=== PATIENT | male | born 1945 | race Caucasian/White ===

== ENCOUNTER 2020-08-25 09:32 | Outpatient (CLI) | payer OTHER, SELFPAY ==
--- NOTE | 2020-08-25 09:42 | CT_ITS ---
WS: [id number] CT LUMBAR SPINE TECHNIQUE: Noncontrast CT of the lumbar spine with coronal and sagittal reformatted images. CLINICAL INFORMATION: LOW BACK PAIN COMPARISON: None. DLP: 1952.[address] scans at [facility] use at least one of these dose optimization techniques: automat ed exposure control; mA and/or kV adjustment per patient size (includes targeted exams where dose is matched to clinical indication); or iterative reconstruction. FINDINGS: Minimal lumbar curve convex right. Hypertrophic changes lumbar spine. T12-L1: Small right foraminal protrusion with mild right foraminal narrowing. Left foramen is patent. Spinal canal is patent. Moderate facet arthropathy. L1-L2: No significant disc bulging. Spinal canal and foramen are patent. Mild facet arthropathy. L2-L3: Mild annular bulging. Mild facet arthropathy. Mild central canal stenosis. Foramen are patent. L3-L4: Mild annular bulging. Moderate facet arthropathy. Spinal canal and foramen are patent. Mild ce ntral canal stenosis. L4-L5: Mild disc bulging in combination with moderate to advanced facet arthropathy results in modera te to severe central canal stenosis. Mild right greater than left foraminal narrowing. Ligamentum fla vum hypertrophy. L5-S1: Small left pericentral protrusion impinges the traversing left S1 nerve root in the subarticul ar recess. Mild central canal stenosis. Mild right foraminal narrowing. Moderate facet arthropathy. Visualized pelvic bony structures: Normal. Paravertebral soft tissues: Normal. CT/CT lumbar spine wo con* [id number] IMPRESSION: 1. Moderate to severe central canal stenosis L4-5. Mild central canal stenosis L2-L3 and L3-L4. 2. Shallow left pericentral protrusion L5-S1 impinges the left S1 nerve root w ith mild central canal stenosis. 3. Small right foraminal protrusion T12-L1 with mild right foraminal narrowing . 4. Mild right L4-5 foraminal narrowing. 5. Moderate to advanced facet arthropathy L4-L5 and L5-S1. 6. Findings could be further evaluated with MRI for better anatomic detail.
--- NOTE | 2020-08-25 09:42 | XR_ITS ---
WS: [id number] LUMBAR SPINE FLEXION AND EXTENSION TECHNIQUE: 3 views of the lumbar spine: Lateral neutral, flexion, and extension views. CLINICAL INFORMATION: LOW BACK PAIN COMPARISON: None. FINDINGS: Normal lumbar alignment on the neutral view. No instability on the flexion and extension views. Moderate spondylitic changes. Hypertrophic changes lower thoracic and lumbar spine. Cholecystectomy c lips. No acute appearing compression fractures. Disc space narrowing worse L4-L5 and L5-S1. Moderate facet arthropathy L5-S1. XR/XR lumbar spine f/e only [id number] IMPRESSION: No instability on flexion-extension
== END 2020-08-25 09:33 | disposition home or self-care (01) ==
LOC: RADWPI 09:37
PROVIDERS: Family Provider Internal Medicine; Visit Provider Nurse Practitioner
DX: M48.061 Spinal stenosis, lumbar region without neurogenic claudication (principal); M51.27 Other intervertebral disc displacement, lumbosacral region; M51.25 Other intervertebral disc displacement, thoracolumbar region; M47.816 Spondylosis without myelopathy or radiculopathy, lumbar region; M47.817 Spondylosis without myelopathy or radiculopathy, lumbosacral region
CPT/HCPCS: 72120; 72131

== ENCOUNTER 2020-09-22 08:11 | Outpatient (CLI) | payer OTHER, SELFPAY ==
--- NOTE | 2020-09-22 08:18 | US_ITS ---
WS: [id number] RENAL ULTRASOUND HISTORY: DECREASED RENAL Function; chronic KIDNEY DISEASE STAGE 4 COMPARISON: None available. TECHNIQUE: 2-D and color Doppler imaging of the kidney submitted. Right kidney: Prior nephrectomy. Left kidney: 11.8 cm x 5.9 cm x 6.4 cm. Normal echogenicity with no hydronephrosis or mass. Aorta: Normal. Urinary Bladder: Minimally distended bladder. Prostate gland is enlarged measuring 4.3 x 4.3 cm. US/US renal BI* [id number] IMPRESSION: 1. Status post RIGHT nephrectomy. 2. Negative LEFT kidney. 3. Prostate gland enlargement.
== END 2020-09-22 08:12 | disposition home or self-care (01) ==
LOC: RAD 08:13
PROVIDERS: Visit Provider Internal Medicine Nephrology
DX: N18.4 Chronic kidney disease, stage 4 (severe) (principal); Z90.5 Acquired absence of kidney; N40.0 Benign prostatic hyperplasia without lower urinary tract symptoms
CPT/HCPCS: 76770

== ENCOUNTER 2020-09-28 20:00 | Outpatient (CLI) | payer OTHER, SELFPAY | END 2020-09-28 20:01 | disposition home or self-care (01) | LOC: SLEEP 10-16 10:07 | PROVIDERS: Visit Provider Family Medicine | DX: G47.10 Hypersomnia, unspecified (principal) | CPT/HCPCS: 95810 ==

== ENCOUNTER 2021-01-18 12:00 | Outpatient (CLI) | payer OTHER, SELFPAY | END 2021-01-18 12:01 | disposition home or self-care (01) | LOC: SLEEP 01-19 14:34 | PROVIDERS: Visit Provider Anesthesiology Pain Medicine | DX: G47.10 Hypersomnia, unspecified (principal) | CPT/HCPCS: G0399 ==

== ENCOUNTER 2021-11-20 04:56 | Observation (INO) | payer OTHER, MEDICARE, SELFPAY ==
[2021-11-20] VITALS (13 sets, daily range): BP systolic 68–140; BP diastolic 35–75; PULSE 60–93; RESP 16–22; TEMP 36.6; O2SAT 93–97; BMI 31.7
[2021-11-20] MEDS: sodium chloride 0.9% 1,000 ML 999 ML IV (05:54)
--- NOTE | 2021-11-20 05:56 | XRR_ITS ---
PROCEDURE INFORMATION: Exam: XR Chest Exam date and time: 11/20/2021 5:56 AM Age: 76 years old Clinical indication: Other: Weakness TECHNIQUE: Imaging protocol: XR of the chest. Views: 1 view. COMPARISON: CR Chest 1 [place] [id number] 04/27/2015 4:59 PM FINDINGS: Tubes, catheters and devices: Intrathoracic electrodes. Lungs: Limited inspiratory volume. Pleural spaces: Unremarkable. No pleural effusion. No pneumothorax. Limited inspiratory volume with retrocardiac interstitial process unlikely. Heart/Mediastinum: Accentuation of cardiac size. Vasculature: Likely confluent crowding vasculature in the retrocardiac left lower lung similar to previous. Bones/joints: Degenerative change of the spine. XR/XR chest 1V portable [id number] IMPRESSION: 1. Accentuation of heart size. 2. No focal consolidation or overt edema. Likely summation of vasculature in the retrocardiac left lower lung. For any respiratory symptoms consider a more optimal inspiratory follow-up chest.
--- NOTE | 2021-11-20 05:56 | ECG_ITS ---
[facility] Test Date: 2021-11-20 Pat Name: Brian Hinkle Department: Room: Gender: Male Taker Down: : 1945 Requested By: Seymour Amos Order Number: [id number] Rebecca MD: Enrique Garland M.D. Measurements Intervals [place] Rate: 73 P: 68 [place]: 235 QRS: -46 QRSD: 119 T: 64 QT: 354 QTc: 391 Interpretive Statements SINUS RHYTHM WITH FIRST DEGREE AV BLOCK LEFT ANTERIOR FASCICULAR BLOCK [QRS AXIS <= -45, QR IN I, RS IN II] POSSIBLE ANTERIOR MYOCARDIAL INFARCTION , OF INDETERMINATE AGE [30 ms Q WAVE IN V3/V4, OR R < 0.2 mV IN V4] INTERPRETATION BASED ON A DEFAULT AGE OF 40 YEARS Compared to ECG 04/27/2015 14:08:45 Myocardial infarct finding now present Incomplete right bundle-branch block no longer present Electronically Signed On 11-20-2021 14:16:04 MAINSPRING WINDER AND OILER by Enrique Garland M.D. [id number] f
--- NOTE | 2021-11-20 05:57 | ED_ITS ---
HPI - Weakness General: Chief complaint: ER Hold Stated complaint: Low Blood Pressure Time Seen by Provider: 11/20/21 05:56 History of Present Illness: HPI Narrative: Mr. Hinkle is a 76-year-old gentleman with significant past medical history of hypertension, hyperlipidemia, CAD status post PCI with stent x3, and solitary kidney secondary to nephrectomy who presents to the emergency department due to low blood pressure. He reports being in his baseline health past few days without significant known provoking factors. Overnight he noticed dizziness especially with position changes. Moderate to severe intensity. Denies any other associated focal neurologic symptoms. Has had similar episodes in the past. Perhaps mild increased shortness of breath with exertion over the past few days though no cough or other infectious symptoms. No other specific known exacerbating relieving factors identified. Patient reports no recent med changes, on 5 antihypertensives but does not know which ones or have a med list with him. Mostly taken qAM however some BID and taken last night. Typically receives care at [facility] here in [place]. PCI reportedly performed in [place] at the ID there. MD Complaint: generalized weakness Onset (ago): hour(s) Duration: constant Location: generalized Migration: none Severity: moderate Relieving factors: none Exacerbating factors: movement Review of Systems General: Reports: 10 or more systems reviewed and unremarkable except in HPI and below PFSH ED PFSH: Medical History (Updated 11/22/21 @ 00:01 by ) BPH (benign prostatic hyperplasia) CAD (coronary artery disease) Chronic kidney disease Diabetes mellitus HLD (hyperlipidemia) HTN (hypertension) Multiple sclerosis Renal cancer Surgical History History of coronary artery stent placement History of nephrectomy Family History (Updated 11/20/21 @ 13:55 by Juan Jose Dimas MD) Other Cancer Social History (Updated 11/20/21 @ 13:55 by Juan Jose Dimas MD) Smoking and tobacco status: former smoker Alcohol intake: never Physical Exam Const: COMMON NORMALS: alert GENERAL APPEARANCE: cooperative and well developed HENMT: COMMON NORMALS: normocephalic, atraumatic, external ears normal and Normal external nose present HEAD & SCALP: normocephalic and atraumatic NOSE: Normal external nose present EXTERNAL EAR: Yes external ears normal Eye: COMMON NORMALS: conjunctivae normal CONJUNCTIVA: Yes conjunctivae normal SCLERA: sclerae normal Neck/C-Spine: COMMON NORMALS: supple GENERAL: Yes trachea midline Resp: COMMON NORMALS: normal respiratory effort EFFORT & INSPECTION: Yes able to speak in complete sentences Cardio: COMMON NORMALS: regular rate and regular rhythm RATE: regular rate RHYTHM: regular rhythm GI: COMMON NORMALS: Soft to palpation PALPATION: Yes Soft to palpation and No Tenderness to palpation present (GI) PERCUSSION: normal to percussion Extremity: GENERAL: Yes normal exam except as noted and No edema Neuro: COMMON NORMALS: moves all extremities SENSORIUM/ORIENTATION: Yes alert and No Orientation impaired Psych: COMMON NORMALS: mental status grossly normal and Normal thought process present THOUGHT PROCESS: Normal thought process present Course ED course: - Patient was seen and evaluated by me at bedside - Patient placed on cardiac monitors, IV access obtained - Initial evaluation notable for exam as above, hypotensive with worsening on orthostatics -IV fluids given - Labs notable for no leukocytosis or other acute hematologic abnormality. Metabolic panel concerning with hyponatremia and hypochloremia, bicarb significantly decreased with elevated anion gap. Patient likely has some degree of CKD with solitary kidney however unclear baseline with a creatinine of 2. Glucose is mildly elevated however no ketones noted on urinalysis therefore not suggestive of DKA nor his clinical picture. - Imaging notable for mild cardiomegaly, no focal consolidation or lobar pneumonia identified. - After 1 L NS bolus patient remained orthostatic. Additional 500 cc ordered and still orthostatic though mildly improved. - Clinical history is inconsistent with significant dehydration, given known heart disease and age patient is not a candidate for high-volume ED fluid resuscitation. - Based on patient history, evaluation, labs, and imaging as interpreted the most likely cause of the patient's condition is orthostatic hypotension with metabolic derangement of unclear etiology - The results of ED evaluation were discussed with the patient including plan for admission due to requirement for level of care not available if discharged to prevent significant worsening/deterioration. - Hospitalist service contacted and agreed admit the patient - Patient was admitted without further deterioration or significant events. Note: Click bubbles or prepopulated nicholson in note writing are used for assistance with data collection and billing and are inherently more limited than narrative and other text portions of this note. Please use narrative for additional clinical history and defer to narrative/free test for any case of contradictory information. If information appears in only free text or click bubble it should be considered present or absent as reported. Please contact note journalists and other writers for clarifications of clinical information or contradictory information. MDM is a brief summary, contradictory or erroneous seeming information should be clarified and full note should be reviewed. Vital Signs: Vital signs: Vital Signs Temperature 97.9 F 11/21/21 13:23 Pulse Rate 69 11/21/21 13:23 Respiratory Rate 18 11/21/21 13:23 Blood Pressure 110/64 11/21/21 13:23 Pulse Oximetry 96 11/21/21 13:23 MDM - Weakness MDM Narrative Medical decision making narrative: 76-year-old gentleman with history of hypertension, CKD, CAD presented with blood pressure. Patient found to be hypotensive. Despite 1.5 L of fluid resuscitation he remained orthostatic and symptomatic. Patient is on multiple medications however care is performed at outside hospital which limits available information. Given high degree of medical complexity including refractory symptoms and patient not being a candidate for high-volume fluid resuscitation he requires admission for further evaluation of persistent hypotension. Medical Records Attestation: I reviewed the patient's medical records. Lab Data Attestation: I reviewed the patient's lab results. Result diagrams: 11/21/21 05:09 11/21/21 05:09 Labs: Lab Results 11/20/21 11/20/21 11/20/21 05:30 05:30 05:31 WBC 6.5 10^3/uL 10^3/uL (4.0-10.0) RBC 5.01 10^6/uL 10^6/uL (4.1-5.3) Hgb 14.7 g/dL g/dL (11.7-16.6) Hct 44.2 % % (42.0-52.0) MCV 88.2 fl fl (80-94) MCH 29.3 pg pg (28.0-34.0) MCHC 33.3 g/dL g/dL (30.0-36.0) RDW 13.5 % % (12.1-15.1) Plt Count 202 10^3/cmm 10^3/cmm (130-400) MPV 11.3 fL H fL (7.4-10.4) Neut % (Auto) 60.0 % % Lymph % (Auto) 26.3 % % Mcintosh % (Auto) 11.2 % % Eos % (Auto) 1.5 % % Baso % (Auto) 0.5 % % Neut # (Auto) 3.91 10^3/uL 10^3/uL (1.8-7.7) Lymph # (Auto) 1.7 10^3/uL 10^3/uL (0.8-4.8) Mcintosh # (Auto) 0.7 10^3/uL 10^3/uL (0.2-0.9) Eos # (Auto) 0.1 10^3/uL 10^3/uL (0.0-0.8) Baso # (Auto) 0.0 10^3/uL 10^3/uL (0.0-0.1) Nucleated RBC % (auto) 0 % % Nucleated RBCs # 0.0 /100WBC /100WBC Sodium 131 mmol/L L mmol/L (136-145) Potassium 4.8 mmol/L mmol/L (3.5-5.1) Chloride 95 mmol/L L mmol/L (98-107) Carbon Dioxide 15 mmol/L L mmol/L (22-29) Anion Gap 25.8 H (5-19) BUN 40 mg/dL H mg/dL (8-23) Creatinine 2.0 mg/dL H mg/dL (0.7-1.2) GFR Calculation Not Reportable Glucose 229 mg/dL H mg/dL (65-115) Calculated Osmolality 289 mOsm/kg mOsm/kg (285-295) Calcium 9.4 mg/dL mg/dL (8.5-10.5) Total Bilirubin 0.6 mg/dL mg/dL (0.15-1.2) Direct Bilirubin 0.20 mg/dL mg/dL (0.00-0.30) AST 17 U/L U/L (0-40) ALT < 5 U/L U/L (0-41) Alkaline Phosphatase 78 IU/L IU/L (40-130) Troponin T Baseline 42 ng/L H ng/L (0-15) Troponin T 120 Minute Delta Troponin T NT-Pro-B Natriuret Pep 111 pg/mL pg/mL (0-125) Total Protein 6.9 g/dL g/dL (6.6-8.7) Albumin 4.0 g/dL g/dL (3.5-5.2) Globulin 2.9 g/dL g/dL (1.3-4.6) TSH 1.82 uIU/mL uIU/mL (0.27-4.20) 11/20/21 07:48 WBC RBC Hgb Hct MCV MCH MCHC RDW Plt Count MPV Neut % (Auto) Lymph % (Auto) Mcintosh % (Auto) Eos % (Auto) Baso % (Auto) Neut # (Auto) Lymph # (Auto) Mcintosh # (Auto) Eos # (Auto) Baso # (Auto) Nucleated RBC % (auto) Nucleated RBCs # Sodium Potassium Chloride Carbon Dioxide Anion Gap BUN Creatinine GFR Calculation Glucose Calculated Osmolality Calcium Total Bilirubin Direct Bilirubin AST ALT Alkaline Phosphatase Troponin T Baseline Troponin T 120 Minute 32.76 ng/L H ng/L (0-15) Delta Troponin T -9.24 ABS# L ABS# (0-10) NT-Pro-B Natriuret Pep Total Protein Albumin Globulin TSH EKG Data^ EKG 1: Attestation: I personally reviewed and interpreted this EKG as follows: EKG interpretation date: 11/20/21 Interpretation: Twelve-lead EKG shows a regular rhythm with a rate of 73. DE interval 235, QRS duration 119, QTc 379. Left axis deviation. Interpretation: Sinus rhythm. First-degree AV block. Interventricular conduction delay. EKG 2: Attestation: I personally reviewed and interpreted this EKG as follows: EKG interpretation date: 11/20/21 EKG interpretation time: 17:23 Interpretation: Twelve-lead EKG shows a regular rhythm at a rate of 69. DE interval 264, QRS duration 117, QTc 380. Left axis deviation. Interpretation: Sinus rhythm. First-degree AV block. Interventricular conduction delay. Discharge Plan Discharge Patient Disposition: Placed in Observation Admit Provider: Juan Jose Dimas Clinical Impression: Acute hypotension Discharge Diet: Cardiac Discharge Activity: Increase activity as tolerated Coding Level of Care Code ED Dealership General Manager for Chg Fwd Exam Comprehensive
[2021-11-20 06:47] LABS: Basophils % 0.5 %; Eosinophils # 0.1 10^3/uL (0.0-0.8); Eosinophils % 1.5 %; Hematocrit 44.2 % (42.0-52.0); Hemoglobin 14.7 g/dL (11.7-16.6); Lymphocytes # 1.7 10^3/uL (0.8-4.8); Lymphocytes % 26.3 %; Mean Corpuscular HGB Conc 33.3 g/dL (30.0-36.0); Mean Corpuscular Hemoglobin 29.3 pg (28.0-34.0); Mean Corpuscular Volume 88.2 fl (80-94); Mean Platelet Volume 11.3 fL (7.4-10.4); Monocytes # 0.7 10^3/uL (0.2-0.9); Monocytes % 11.2 %; Neutrophils # 3.91 10^3/uL (1.8-7.7); Nucleated Red Blood Cells % 0 %; Platelet Count 202 10^3/cmm (130-400); Red Blood Count 5.01 10^6/uL (4.1-5.3); Red Cell Distribution Width 13.5 % (12.1-15.1); White Blood Count 6.5 10^3/uL (4.0-10.0)
--- NOTE | 2021-11-20 06:56 | PC.NURSE ---
Pt. states that he feels much better after some fluid. Pt. repositioned in bed . Mechanical Integrity Engineer has sent for patient's medical records. Pt.'s is at bedside. states that she has been trying to get patient to come to the hospital all day and he would not come until he was so weak he could not stand.
[2021-11-20 07:10] LABS: Troponin(5th) Baseline 42 ng/L (0-15)
[2021-11-20 07:17] LABS: Alanine Aminotransferase < 5 U/L (0-41); Alkaline Phosphatase 78 IU/L (40-130); Anion Gap 25.8 (5-19); Aspartate Amino Transferase 17 U/L (0-40); Blood Urea Nitrogen 40 mg/dL (8-23); Calcium 9.4 mg/dL (8.5-10.5); Carbon Dioxide 15 mmol/L (22-29); Chloride 95 mmol/L (98-107); Globulin 2.9 g/dL (1.3-4.6); Glucose 229 mg/dL (65-115); NT Pro B Type Natriuretic Pept 111 pg/mL (0-125); Osmolality Calculated 289 mOsm/kg (285-295); Potassium 4.8 mmol/L (3.5-5.1); Sodium 131 mmol/L (136-145); Thyroid Stimulating Hormone 1.82 uIU/mL (0.27-4.20); Total Bilirubin 0.6 mg/dL (0.15-1.2); Total Protein 6.9 g/dL (6.6-8.7)
--- NOTE | 2021-11-20 07:38 | PC.NURSE ---
WHILE AT DOORWAY PT IS RESTING QIUETLY IN BED SUPINE WITH EYES CLOSED IN NAD. PT HAS GOOD CHEST RISE AND FALL. PT IS ON CONTINUOUS SPO2 AND NIBP MONITORING.
--- NOTE | 2021-11-20 07:56 | ECG_ITS ---
[facility] Test Date: 2021-11-20 Pat Name: Brian Hinkle Department: Room: 255 Gender: Male Cotton Washer: : 1945 Requested By: Seymour Amos Order Number: [id number] Rebecca MD: Enrique Garland M.D. Measurements Intervals [place] Rate: 69 P: 75 DE: 264 QRS: -55 QRSD: 117 T: 70 QT: 362 QTc: 388 Interpretive Statements SINUS RHYTHM WITH FIRST DEGREE AV BLOCK LOW QRS VOLTAGE IN PRECORDIAL LEADS [QRS DEFLECTION < 1.0 mV IN CHEST LEADS] INCOMPLETE RIGHT BUNDLE BRANCH BLOCK [90+ ms QRS DURATION, TERMINAL R IN V1/V2, 40+ ms S IN I/aVL/V4/V5/V6] LEFT ANTERIOR FASCICULAR BLOCK [QRS AXIS <= -45, QR IN I, RS IN II] MINIMAL VOLTAGE CRITERIA FOR LVH, CONSIDER NORMAL VARIANT [MEETS CRITERIA IN ONE OF: R(aVL), S(V1), R(V5), R(V5/V6)+S(V1)] Compared to ECG 11/20/2021 17:22:14 First degree AV block now presentLow QRS voltage now present Incomplete right bundle-branch block now presentLeft anterior fascicular block now present. Atrial-paced complex(es) or rhythm no longer present Left-axis deviation no longer present.Myocardial infarct finding no longer present Electronically Signed On 11-21-2021 20:11:44 BRIM ROUNDER by Enrique Garland M.D. [id number]
[2021-11-20 08:14] LABS: Troponin 5 2HR 32.76 ng/L (0-15)
[2021-11-20 08:15] LABS: Troponin 5 2HR Delta -9.24 ABS# (0-10)
[2021-11-20] MEDS: sodium chloride 0.9% 500 ML 999 ML IV (08:44)
--- NOTE | 2021-11-20 11:56 | ECG_ITS ---
[facility] Test Date: 2021-11-20 Pat Name: Brian Hinkle Department: Room: EDIP Gender: Male Larr[place]: : 1945 Requested By: Seymour Amos Order Number: [id number] Rebecca MD: Enrique Garland M.D. Measurements Intervals [place] Rate: 68 P: 226 MD: 322 QRS: -37 QRSD: 126 T: 75 QT: 377 QTc: 403 Interpretive Statements Regular supraventricular rhythm, possibly sinus Heavy electrical artifact LEFT AXIS DEVIATION [QRS AXIS < -30] POSSIBLE RIGHT VENTRICULAR CONDUCTION DELAY [RSR (QR) IN V1/V2] POSSIBLE ANTERIOR MYOCARDIAL INFARCTION , OF INDETERMINATE AGE [30 ms Q WAVE IN V3/V4, OR R < 0.2 mV IN V4] Compared to ECG 11/20/2021 05:29:20 There may not be a significant change further interpretation is not possible. Consider repeating the study Electronically Signed On 11-21-2021 20:11:17 FOREST FIREFIGHTER by Enrique Garland M.D. [id number]
[2021-11-20 12:25] LABS: Troponin 5 6HR 27.21 ng/L (0-15)
[2021-11-20 13:02] LABS: Add Urine Microscopic? NO; Charge for UA Resulting for Rev
[2021-11-20 13:07] LABS: Bilirubin Urine Neg (Negative); Blood Urine Neg (Negative); Glucose Urine UA 4+ (Normal); Ketones Urine Negative (Negative); Leukocyte Esterase Urine Negative (Negative); Nitrate Urine Negative (Negative); Protein Urine Neg (Negative); Specific Gravity, Urine 1.015 (1.005-1.030); Urine Appearance Clear (CLEAR); Urine Color Straw (Yellow); Urobilinogen Urine Norm (Negative); pH Urine 5 (5-7)
--- NOTE | 2021-11-20 13:34 | PC.NURSE ---
report given to moy chavez assumed care.
--- NOTE | 2021-11-20 13:52 | PM.HP ---
Providers/Chief Complaint Admitting Physician: Juan Jose Dimas MD Chief Complaint: Low Blood Pressure History of Present Illness Brian Hinkle is a 76 year old male who presented to the emergency department with 1 day history of dizziness upon standing, severe weakness. No chest discomfort, shortness of breath, fever. No recent change in medication. was recently ill with stomach flu but he has not had the symptoms. He reports he is vaccinated for COVID including booster. This is not happened to him before. He denies any focal weakness and reports of fluids he does not feel dizzy with sitting currently. He reports he did not take his blood pressure medicine this morning secondary to dizziness. Review of Systems General: Reports: 10 or more systems reviewed and unremarkable except in HPI and below Const: Reports: malaise; Denies: fever(s) or chills Eyes: Denies: change in vision ENMT: Denies: throat pain Card: Denies: chest pain Resp: Denies: dyspnea GI: Denies: abdominal pain, nausea, vomiting, hematochezia or melena : Denies: flank pain Musc: Denies: neck pain Skin/Breast: Denies: rash Neuro: Reports: dizziness; Denies: headache(s) Psych: Denies: anxiety Endo: Denies: polyuria Luigi/Lymph: Denies: easy bruising All/Imm: Denies: urticaria Medications/Allergies Home Medications Medication Instructions Recorded Confirmed Last Taken Type amlodipine 5 mg PO DAILY 11/20/21 11/20/21 11/19/21 History cyclobenzaprine 10 mg PO TID PRN 11/20/21 11/20/21 11/20/21 History empagliflozin [Jardiance] 25 mg PO DAILY 11/20/21 11/20/21 11/20/21 History glipizide 10 mg PO BID 11/20/21 11/20/21 11/20/21 History hydrochlorothiazide 12.5 mg PO DAILY 11/20/21 11/20/21 11/20/21 History hydrocodone-acetaminophen 1 tab PO TID PRN 11/20/21 11/20/21 11/19/21 History insulin glargine [Lantus U-100 See Rx Instructions .ROUTE .COMPLEX 11/20/21 11/20/21 11/20/21 History Insulin] lisinopril 40 mg PO DAILY 11/20/21 11/20/21 11/19/21 History metformin 250 mg PO BID 11/20/21 11/20/21 11/20/21 History metoprolol tartrate 12.5 mg PO BID 11/20/21 11/20/21 11/19/21 History nortriptyline 75 mg PO BEDTIME 11/20/21 11/20/21 11/19/21 History omega-3 fatty acids [Fish Oil] 500 mg PO BID 11/20/21 11/20/21 11/20/21 History pravastatin 80 mg PO BEDTIME 11/20/21 11/20/21 11/19/21 History tamsulosin 0.4 mg PO DAILY 11/20/21 11/20/21 11/19/21 History Allergies Allergy/AdvReac Type Severity Reaction Status Date / Time Iodine and Iodide Containing Allergy Unresponsiv Verified 11/20/21 13:50 Produc e PFSH Acute PFSH: Medical History (Updated 11/20/21 @ 14:05 by Juan Jose Dimas MD) BPH (benign prostatic hyperplasia) CAD (coronary artery disease) Chronic kidney disease Diabetes mellitus HLD (hyperlipidemia) HTN (hypertension) Multiple sclerosis Renal cancer Surgical History History of coronary artery stent placement History of nephrectomy Family History (Updated 11/20/21 @ 13:55 by Juan Jose Dimas MD) Other Cancer Social History (Updated 11/20/21 @ 13:55 by Juan Jose Dimas MD) Smoking and tobacco status: former smoker Alcohol intake: never Vitals/I&O/Wt Last Vital Signs Temp 97.9 F 11/20/21 05:11 Pulse 60 11/20/21 12:31 Resp 16 11/20/21 12:31 BP 140/61 11/20/21 12:31 Pulse Ox 97 11/20/21 12:31 Weight last 48 hrs Weight 97.522 kg Physical Exam Narrative: EXAM NARRATIVE: General exam is white male, sitting upright, reporting he feels better. HEENT: Pupils equally round. Oropharynx clear. Neck is supple no lymphadenopathy or thyromegaly Cardiovascular regular rate and rhythm without murmur, no S3 or S4 Lungs clear no wheezing or crackles. Abdomen is soft nontender positive bowel sounds. No obvious organomegaly exams deferred Extremities no cyanosis clubbing or edema, cap refill brisk Skin no rash Neuro no focal deficits. Data : 11/20/21 05:31 11/20/21 05:30 Other data: Troponin 42 with repeat of 32 and 6 out of 27 LFTs normal TSH normal Urinalysis negative Chest x-ray no obvious infiltrate EKG sinus rhythm, left axis deviation, left anterior fascicular block Urinalysis negative A&P Assessment and plan (1) Acute hypotension: Appears to have orthostatic hypotension. May have fluid deficit, with concern of acute kidney injury. He has been given some fluids in the emergency department. We will continue saline at 75 cc an hour. Check cortisol, magnesium orthostatic blood pressures twice daily Hold cyclobenzaprine, hydrochlorothiazide, lisinopril, metformin, metoprolol, tamsulosin, nortriptyline. All of these could potentially worsen acute kidney injury, or cause lower blood pressure Patient with history of multiple sclerosis, which could lead to orthostatic hypotension Telemetry Status: Acute (2) Dizziness: Secondary to above Status: Acute (3) Chronic kidney disease: Acute on chronic kidney injury. Recheck tomorrow with BMP Status: Acute (4) CAD (coronary artery disease): Continue his chronic medications Aspirin daily Status: Acute (5) HTN (hypertension): Hold all antihypertensives Status: Acute Additional A&P Information Diabetes mellitus. Sliding scale insulin. History of multiple sclerosis Multiple other medical problems as outlined in past medical history. Full code Heparin for DVT prophylaxis Attestations Medical Necessity Statement*: Will need less than 2 midnight stay for evaluation and treatment of hypotension. Coding Level of Care Code Acute Audio Visual Aids Director for Grace Frankel Diagnoses Acute hypotension I95.9 Dizziness R42 Chronic kidney disease N18.9 CAD (coronary artery disease) I25.10 HTN (hypertension) I10
[2021-11-20 14:24] LABS: Magnesium 2.2 mg/dL (1.7-2.3)
[2021-11-20] MEDS: heparin 5,000 unit/mL INJ 1 mL 5000 UNIT SUBCUT (14:41)
[2021-11-20] MEDS: sodium chloride 0.9% 1,000 ML 75 ML IV (15:00)
[2021-11-20 15:08] LABS: Cortisol Random 8.86 ug/dL (2.47-19.5)
[2021-11-20 16:43] LABS: Anion Gap 18.3 (5-19); Blood Urea Nitrogen 37 mg/dL (8-23); Carbon Dioxide 20 mmol/L (22-29); Chloride 99 mmol/L (98-107); Glucose 185 mg/dL (65-115); Osmolality Calculated 289 mOsm/kg (285-295); Potassium 4.3 mmol/L (3.5-5.1); Sodium 133 mmol/L (136-145)
[2021-11-20 21:37] LABS: Glucose Point of Care 161 mg/dL (70-110)
[2021-11-20] MEDS: insulin lispro 100 unit/1 mL SUBCUT (21:53)
[2021-11-21] VITALS: BP 137/72; PULSE 77; RESP 20; TEMP 36.7; O2SAT 95
[2021-11-21] MEDS: heparin 5,000 unit/mL INJ 1 mL 5000 UNIT SUBCUT (02:12)
[2021-11-21] MEDS: sodium chloride 0.9% 1,000 ML 75 ML IV (03:10)
[2021-11-21 04:00] VITALS: BP 116/71; PULSE 82; RESP 19; TEMP 36.7; O2SAT 93
[2021-11-21 05:31] LABS: Basophils % 0.5 %; Eosinophils # 0.2 10^3/uL (0.0-0.8); Eosinophils % 3.8 %; Hematocrit 42.8 % (42.0-52.0); Hemoglobin 14.1 g/dL (11.7-16.6); Lymphocytes # 1.8 10^3/uL (0.8-4.8); Lymphocytes % 28.4 %; Mean Corpuscular HGB Conc 32.9 g/dL (30.0-36.0); Mean Corpuscular Hemoglobin 29.7 pg (28.0-34.0); Mean Corpuscular Volume 90.3 fl (80-94); Mean Platelet Volume 10.3 fL (7.4-10.4); Monocytes # 0.7 10^3/uL (0.2-0.9); Monocytes % 11.3 %; Neutrophils # 3.48 10^3/uL (1.8-7.7); Neutrophils % 55.7 %; Nucleated Red Blood Cells % 0 %; Platelet Count 178 10^3/cmm (130-400); Red Blood Count 4.74 10^6/uL (4.1-5.3); Red Cell Distribution Width 13.6 % (12.1-15.1); White Blood Count 6.3 10^3/uL (4.0-10.0)
[2021-11-21 05:51] LABS: Anion Gap 18.6 (5-19); Blood Urea Nitrogen 33 mg/dL (8-23); Calcium 8.4 mg/dL (8.5-10.5); Carbon Dioxide 20 mmol/L (22-29); Chloride 102 mmol/L (98-107); Glucose 180 mg/dL (65-115); Osmolality Calculated 294 mOsm/kg (285-295); Potassium 4.6 mmol/L (3.5-5.1); Sodium 136 mmol/L (136-145)
[2021-11-21 06:00] VITALS: PULSE 76
[2021-11-21 06:27] LABS: Glucose Point of Care 154 mg/dL (70-110)
[2021-11-21 08:00] VITALS: BP 109/62; BP 110/64; BP 123/68; PULSE 69; PULSE 74; PULSE 79; RESP 18; TEMP 36.6; O2SAT 96
[2021-11-21] MEDS: insulin lispro 100 unit/1 mL SUBCUT ×2 (08:57→12:11)
--- NOTE | 2021-11-21 10:07 | PM.DCS ---
Discharge Providers Date of Admission: 11/20/21 10:27 Date of Discharge: November 21, 2021 Attending Provider at Admission: Juan Jose Dimas MD Attending Provider at Discharge: Juan Jose Dimas MD Diagnoses at Discharge Discharge Diagnosis (1) Acute hypotension: Status: Acute (2) Dizziness: Status: Acute (3) Chronic kidney disease: Status: Acute (4) CAD (coronary artery disease): Status: Acute (5) HTN (hypertension): Status: Acute Reason for Visit Reason for Visit: Low Blood Pressure Hospital Course Hospital Course Brian is a 76-year-old male who presented to the emergency department with complaints of dizziness, tiredness. In the emergency department he was found to be significantly orthostatic. He did not remember any new medicines. He had not been ill with any fever or cough. He has been taking all his medicines as prescribed but held his morning medicines secondary to dizziness. In the emergency department he did receive some fluids but was still orthostatic so he was placed on observation. Cortisol, TSH were checked and normal. Many of his sedating medications as well as those that would lower blood pressure were held including cyclobenzaprine, hydrochlorothiazide, lisinopril, metformin, metoprolol, tamsulosin, nortriptyline. The following day after hydration he was no longer orthostatic and had no symptoms. He will discharge home today, with 3 restarted his low-dose metoprolol, nightly tamsulosin. His cyclobenzaprine, hydrochlorothiazide, lisinopril, metformin, nortriptyline will be discontinued for now. Note that his blood pressure was 125/70 on discharge. [facility] be [facility].. Physical Exam Narrative: EXAM NARRATIVE: General exam no distress Neck is supple Cardiovascular regular rate and rhythm Lungs clear Abdomen soft Extremities no cyanosis clubbing or edema Discharge Data Data Completed and Pending: Completed Studies During Hospitalization Category Date Time Status XR chest 1V grace ble [id number] Urgent Exams 11/20/21 05:56 Completed Labs from last 24 hours 11/21/21 11/21/21 11/21/21 06:17 05:09 05:09 WBC 6.3 RBC 4.74 Hgb 14.1 Hct 42.8 MCV 90.3 MCH 29.7 MCHC 32.9 RDW 13.6 Plt Count 178 MPV 10.3 Neut % (Auto) 55.7 Lymph % (Auto) 28.4 [place] % (Auto) 11.3 Eos % (Auto) 3.8 Baso % (Auto) 0.5 Neut # (Auto) 3.48 Lymph # (Auto) 1.8 [place] # (Auto) 0.7 Eos # (Auto) 0.2 Baso # (Auto) 0.0 Nucleated RBC % (a uto) 0 Nucleated RBCs # 0.0 Sodium 136 Potassium 4.6 Chloride 102 Carbon Dioxide 20 L Anion Gap 18.6 BUN 33 H Creatinine 1.6 H GFR Calculation Not Reportable Glucose 180 H POC Glucose 154 H Calculated Osmolal ity 294 Calcium 8.4 L Magnesium Troponin T Hi Sens 6Hr Troponin T Hi Sens 6Hr Delta Random Cortisol Urine Color Urine Appearance Urine pH Ur Specific Gravit y Urine Protein Urine Glucose (UA) Urine Ketones Urine Blood Urine Nitrate Urine Bilirubin Urine Urobilinogen Ur Leukocyte Avani ase 11/20/21 11/20/21 11/20/21 21:34 16:18 12:55 WBC RBC Hgb Hct MCV MCH MCHC RDW Plt Count MPV Neut % (Auto) Lymph % (Auto) [place] % (Auto) Eos % (Auto) Baso % (Auto) Neut # (Auto) Lymph # (Auto) [place] # (Auto) Eos # (Auto) Baso # (Auto) Nucleated RBC % (a uto) Nucleated RBCs # Sodium 133 L Potassium 4.3 Chloride 99 Carbon Dioxide 20 L Anion Gap 18.3 BUN 37 H Creatinine 1.6 H GFR Calculation Not Reportable Glucose 185 H POC Glucose 161 H Calculated Osmolal ity 289 Calcium 9.0 Magnesium Troponin T Hi Sens 6Hr Troponin T Hi Sens 6Hr Delta Random Cortisol Urine Color Straw Urine Appearance Clear Urine pH 5 Ur Specific Gravit y 1.015 Urine Protein Neg Urine Glucose (UA) 4+ H Urine Ketones Negative Urine Blood Neg Urine Nitrate Negative Urine Bilirubin Neg Urine Urobilinogen Norm Ur Leukocyte Avani ase Negative 11/20/21 11/20/21 11/20/21 12:01 12:01 12:01 WBC RBC Hgb Hct MCV MCH MCHC RDW Plt Count MPV Neut % (Auto) Lymph % (Auto) [place] % (Auto) Eos % (Auto) Baso % (Auto) Neut # (Auto) Lymph # (Auto) [place] # (Auto) Eos # (Auto) Baso # (Auto) Nucleated RBC % (a uto) Nucleated RBCs # Sodium Potassium Chloride Carbon Dioxide Anion Gap BUN Creatinine GFR Calculation Glucose POC Glucose Calculated Osmolal ity Calcium Magnesium 2.2 Troponin T Hi Sens 6Hr 27.21 H Troponin T Hi Sens 6Hr Delta -14.79 L Random Cortisol 8.86 Urine Color Urine Appearance Urine pH Ur Specific Gravit y Urine Protein Urine Glucose (UA) Urine Ketones Urine Blood Urine Nitrate Urine Bilirubin Urine Urobilinogen Ur Leukocyte Avani ase Vitals: Last Vital Signs Temp 97.9 F 11/21/21 08:00 Pulse 69 11/21/21 08:00 Resp 18 11/21/21 08:00 BP 110/64 11/21/21 08:00 Pulse Ox 96 11/21/21 08:00 Discharge Plan Discharge Patient Disposition: Home Condition: Stable Prescriptions: Continued Lantus U-100 Insulin 100 unit/mL Solution See Rx Instructions .ROUTE .COMPLEX RF: 0 hydrocodone-acetaminophen 5-325 mg Tablet 1 tab PO TID PRN (Reason: Pain) RF: 0 glipizide 10 mg Tablet 10 mg PO BID RF: 0 pravastatin 80 mg Tablet 80 mg PO BEDTIME RF: 0 tamsulosin 0.4 mg Capsule 0.4 mg PO DAILY RF: 0 metoprolol tartrate 25 mg Tablet 12.5 mg PO BID RF: 0 omega-3 fatty acids 500 mg Capsule 1,000 mg PO BID RF: 0 Jardiance 25 mg Tablet 25 mg PO DAILY RF: 0 Discontinued cyclobenzaprine 10 mg Tablet 10 mg PO TID PRN (Reason: Muscle Spasm) RF: 0 metformin 500 mg Tablet 250 mg PO BID RF: 0 amlodipine 5 mg Tablet 5 mg PO DAILY RF: 0 nortriptyline 75 mg Capsule 75 mg PO BEDTIME RF: 0 hydrochlorothiazide 25 mg Tablet 12.5 mg PO DAILY RF: 0 lisinopril 40 mg Tablet 40 mg PO DAILY RF: 0 Discharge Orders: Discharge Order (Routine); Ordered 11/21/21 Ordered By: Juan Jose Dimas Discharge Diet: Cardiac Discharge Activity: Increase activity as tolerated Patient Instructions: Opioid Safety Activity Restrictions/Additional Instructions: Follow-up with primary care provider at [facility] in 3 to 5 days. Please send a copy of record to them. Review medicine and see what needs to be restarted at that time. Encourage fluids Note multiple medicines have been discontinued that could lower blood pressure related to fall risk. Discharge Attestations Time Spent in Discharge Care*: greater than 30 min Quality Metrics Clinical Quality Measures During this hospital stay, did patient experience: None Coding Level of Care Code Acute Chg FW DC note Diagnoses Acute hypotension I95.9 Dizziness R42 Chronic kidney disease N18.9 CAD (coronary artery disease) I25.10 HTN (hypertension) I10
[2021-11-21 11:10] LABS: Glucose Point of Care 152 mg/dL (70-110)
[2021-11-21 13:23] VITALS: BP 110/64; PULSE 69; RESP 18; TEMP 36.6; O2SAT 96
== END 2021-11-21 12:40 | disposition home or self-care (01) ==
LOC: ER 10:27 → MEDSURG 11-21 09:43
PROVIDERS: Emergency Medicine; Admitting Provider Internal Medicine; Emergency Provider Emergency Medicine; Visit Provider Internal Medicine
DX: I95.9 Hypotension, unspecified (principal); R42 Dizziness and giddiness; I25.10 Atherosclerotic heart disease of native coronary artery without angina pectoris; Z79.4 Long term (current) use of insulin; Z79.84 Long term (current) use of oral hypoglycemic drugs; E11.22 Type 2 diabetes mellitus with diabetic chronic kidney disease; I12.9 Hypertensive chronic kidney disease with stage 1 through stage 4 chronic kidney disease, or unspecified chronic kidney disease; N18.9 Chronic kidney disease, unspecified; Z90.5 Acquired absence of kidney; Z87.891 Personal history of nicotine dependence; Z85.528 Personal history of other malignant neoplasm of kidney
CPT/HCPCS: 36415; 36416; 71045; 80048; 80076; 81003; 82533; 82962; 83735; 83880; 84443; 84484; 85025; 93005; 96360; 96361; 96372; 99285; G0378; J1644; J1815; J7030; J7040

== ENCOUNTER 2022-04-19 08:57 | Emergency (ER) | payer OTHER, MEDICARE, SELFPAY ==
[2022-04-19 09:37] VITALS: BP 115/68; PULSE 65; RESP 16; TEMP 37.1; O2SAT 93; BMI 32.5
--- NOTE | 2022-04-19 12:15 | P.CONIM_ITS ---
Providers/Reason For Consult Consulting Physician/Specialty*: Urology/Zavala Reason for Consult*: Paraphimosis. Could not get reduced in the ED Requesting Physician: Dr. Robertson History of Present Illness History of Present Illness Brian Hinkle is a 76 year old male who I evaluated for the first time today at the request of Dr. Villasenor for refractory irreducible paraphimosis. Began 4 days prior after retraction. Has not been able to get the foreskin back over the head of the penis. Swelling has increased as well as pain. Attempts by ER staff were unsuccessful and I was consulted. Physical exam revealed typical paraphimosis. There is no severe necrosis of the tight constricting band but there is some significant inflammation. Very tender. PROCEDURE: Paraphimosis reduction Patient was treated with pain medication. Sequential light pressure was held on the penis for about 5 minutes to reduce the edema. Even with that it was still difficult to restore the foreskin to its anatomic position but ultimately was successful. Patient tolerated well despite the discomfort. Instructed to forego pulling the foreskin back for cleaning. I will need to see him in the clinic I have recommended he consider circumcision at some point. Review of Systems Const: Denies: fever(s) or chills Eyes: Denies: eye discharge Card: Denies: chest pain or palpitations Resp: Denies: dyspnea or wheezing GI: Denies: abdominal pain or vomiting : Reports: genital pain (Secondary to paraphimosis) Musc: Denies: neck pain or joint redness Skin/Breast: Denies: rash or pruritus Neuro: Denies: confusion or Slurred speech present Psych: Reports: anxiety Endo: Denies: flushing Luigi/Lymph: Denies: easy bruising or easy bleeding All/Imm: Denies: urticaria or acute wheezing Medications/Allergies Home Medications Medication Instructions Recorded Confirmed Last Taken Type empagliflozin 25 mg tablet 25 mg PO DAILY 11/20/21 04/04/22 11/20/21 History (Jardiance) glipizide 10 mg tablet 10 mg PO BID 11/20/21 04/04/22 11/20/21 History hydrocodone 5 mg-acetaminophen 325 1 tab PO TID PRN 11/20/21 04/04/22 11/19/21 History mg tablet insulin glargine 100 unit/mL See Rx Instructions .ROUTE .COMPLEX 11/20/21 04/04/22 11/20/21 History subcutaneous solution (Lantus U-100 Insulin) metoprolol tartrate 25 mg tablet 12.5 mg PO BID 11/20/21 04/04/22 11/19/21 History omega-3 fatty acids 500 mg capsule 1,000 mg PO BID 11/20/21 04/04/22 11/20/21 History pravastatin 80 mg tablet 80 mg PO BEDTIME 11/20/21 04/04/22 11/19/21 History tamsulosin 0.4 mg capsule 0.4 mg PO DAILY 11/20/21 04/04/22 11/19/21 History metformin 500 mg tablet 500 mg PO DAILY 04/04/22 04/04/22 Unknown History mupirocin 2 % topical ointment 1 applic TOPICAL BID 5 Days #22 g 04/19/22 Unknown Rx Allergies Allergy/AdvReac Type Severity Reaction Status Date / Time Iodine and Iodide Containing Allergy Unresponsiv Verified 04/04/22 08:46 Produc e PFSH Acute PFSH: Medical History BPH (benign prostatic hyperplasia) CAD (coronary artery disease) Chronic kidney disease Diabetes mellitus HLD (hyperlipidemia) HTN (hypertension) Multiple sclerosis Renal cancer Surgical History History of coronary artery stent placement History of nephrectomy Family History Other Cancer Social History Smoking and tobacco status: former smoker Alcohol intake: never Vitals/I&O/Wt Last Vital Signs Temp 98.7 F 04/19/22 09:37 Pulse 65 04/19/22 09:37 Resp 16 04/19/22 09:37 BP 115/68 04/19/22 09:37 Pulse Ox 93 04/19/22 09:37 Weight last 48 hrs Weight 220 lb Physical Exam Const: COMMON NORMALS: alert and well nourished GENERAL APPEARANCE: well kempt and well developed ORIENTATION/CONSCIOUSNESS: not confused OTHER: Significant discomfort secondary to the paraphimosis. HENMT: COMMON NORMALS: normocephalic and atraumatic HEAD & SCALP: normocephalic and atraumatic Eye: COMMON NORMALS: conjunctivae normal and no scleral icterus CONJUNCTIVA: Yes conjunctivae normal Neck/C-Spine: COMMON NORMALS: full ROM GENERAL: Yes normal visual inspection Lymph: LYMPHATIC: no lymphadenopathy noted Resp: COMMON NORMALS: normal respiratory effort EFFORT & INSPECTION: No labored : OTHER: Swollen phallus with paraphimosis. Normal meatus. Scrotum and testicles normal. Tight band does have some distinct erythematous skin changes but without necrosis. Extremity: COMMON NORMALS: no clubbing, cyanosis or edema Neuro: COMMON NORMALS: no focal motor deficits SENSORIUM/ORIENTATION: Yes alert Psych: COMMON NORMALS: mental status grossly normal APPEARANCE: Yes grossly normal and Yes well kempt ATTITUDE: Yes engaged Skin: COMMON NORMALS: no rashes or lesions noted and no jaundice GENERAL SKIN EXAM: no rashes or lesions noted A&P Assessment and plan (1) Paraphimosis: 4-day duration. Very painful. Reduced with reduction of edema and manual reduction of the foreskin. Status: Acute (2) History of nephrectomy: Status: Acute (3) Balanitis: Status: Acute Plan Follow-up in my office for potential circumcision scheduling. Consult Attestations Medical Necessity Statement: See attending Coding Level of Care Code Acute Associate Juvenile Court Judge for [facility] Fwd Diagnoses Paraphimosis N47.2 History of nephrectomy Z90.5 Balanitis N48.1
--- NOTE | 2022-04-19 12:58 | W.ED.MALEGU ---
HPI - Male Genitourinary General: Chief complaint: Urogenital-Male Stated complaint: private area problem Time Seen by Provider: 04/19/22 09:01 Source: patient Mode of arrival: ambulatory Limitations: no limitations History of Present Illness: 76-year-old male presents emergency room complaining swelling of the glans of the penis. He retracted his foreskin while bathing 4 days ago and it is not gone back he is got significant swelling of the glans. He has not been able to retract the foreskin back into normal position. Denies any difficulty with urination. No other injury or complaint. Onset (ago): day(s) (4) Location: penis Quality: aching Relieving factors: none Exacerbating factors: none Associated symptoms: Deny discharge, dysuria, fevers/chills, hematuria, nausea, swelling, urinary incontinence, urinary retention, mass or vomiting Review of Systems Const: Denies: fever(s) or chills Card: Denies: chest pain Resp: Denies: dyspnea GI: Denies: nausea or vomiting : Denies: dysuria, urinary incontinence or hematuria PFSH ED PFSH: Medical History BPH (benign prostatic hyperplasia) CAD (coronary artery disease) Chronic kidney disease Diabetes mellitus HLD (hyperlipidemia) HTN (hypertension) Multiple sclerosis Renal cancer Surgical History History of coronary artery stent placement History of nephrectomy Family History Other Cancer Social History Smoking and tobacco status: former smoker Alcohol intake: never Physical Exam Const: COMMON NORMALS: no acute distress GENERAL APPEARANCE: cooperative and comfortable ORIENTATION/CONSCIOUSNESS: Yes awake, Yes oriented to person, Yes oriented to place and Yes oriented to time HENMT: COMMON NORMALS: normocephalic and atraumatic HEAD & SCALP: normocephalic and atraumatic Resp: COMMON NORMALS: normal respiratory effort, No retractions, No use of accessory muscles and clear to auscultation bilaterally AUSCULTATION: clear to auscultation bilaterally Cardio: COMMON NORMALS: regular rate, regular rhythm and No murmurs present (Cardio) RATE: regular rate RHYTHM: regular rhythm GI: COMMON NORMALS: Soft to palpation and No hepatosplenomegaly present AUSCULTATION: Yes normoactive bowel sounds PALPATION: Yes Soft to palpation, No Tenderness to palpation present (GI), No Guarding due to palpation present (GI) and Yes No hepatosplenomegaly present : OTHER: Phimosis with moderate amount of swelling and erythema. Attempted to reduce unable to accomplish at the bedside. Extremity: COMMON NORMALS: normal to inspection, capillary refill normal, no clubbing, cyanosis or edema, no calf tenderness and no pedal edema Neuro: SENSORIUM/ORIENTATION: Yes oriented to person, Yes oriented to place and Yes oriented to time Course Vital Signs: Vital signs: Vital Signs Temperature 98.7 F 04/19/22 09:37 Pulse Rate 65 04/19/22 09:37 Respiratory Rate 16 04/19/22 09:37 Blood Pressure 115/68 04/19/22 09:37 Pulse Oximetry 93 04/19/22 09:37 MDM - Male Medical Decision Making Consult with Dr. Zavala was Gratian of come to the ER and see the patient he was able to get the phimosis reduced. We will discharge patient home use pain medications previously prescribed apply topical bacitracin to the glans and foreskin avoid any attempts at retracting the foreskin again. Follow-up with Dr. Zavala in his office for discussion about possible circumcision to prevent future episodes. Medical Records I reviewed the patient's medical records. Lab Data I reviewed the patient's lab results. Discharge Plan Discharge Patient Disposition: Home Clinical Impression: Phimosis, Balanitis Condition: Stable Prescriptions: New mupirocin 2 % ointment 1 applic topical BID 5 Days Qty: 22 0RF No Action metformin 500 mg tablet 500 mg PO DAILY 0RF Lantus U-100 Insulin 100 unit/mL Solution See Rx Instructions .ROUTE .COMPLEX 0RF Rx Instructions: 75 unit subcutaneously in the morning-12 units subcut in the evening hydrocodone-acetaminophen 5-325 mg Tablet 1 tab PO TID PRN (Reason: Pain) 0RF glipizide 10 mg Tablet 10 mg PO BID 0RF pravastatin 80 mg Tablet 80 mg PO BEDTIME 0RF tamsulosin 0.4 mg Capsule 0.4 mg PO DAILY 0RF metoprolol tartrate 25 mg Tablet 12.5 mg PO BID 0RF omega-3 fatty acids 500 mg Capsule 1,000 mg PO BID 0RF Jardiance 25 mg Tablet 25 mg PO DAILY 0RF Discharge Orders: Discharge ED (Routine); Ordered 04/19/22 Ordered By: Dylan Robertson Discharge Diet: Usual diet Discharge Activity: Increase activity as tolerated Patient Instructions: Phimosis (ED), Opioid Safety Activity Restrictions/Additional Instructions: aircraft maintenance manager will make an appointment with you to see Dr. Zavala in his office. Avoid retracting foreskin. Apply the topical antibiotic ointment twice daily. Coding Level of Care Code ED Ignition Specialist for [facility]
--- NOTE | 2022-04-19 14:03 | PC.SOCIAL ---
Addendum entered by Beatris Mae 06/02/22 10:14: Patient had a follow up appointment scheduled with urology - patient did attend appointment. Addendum entered by Beatris Mae 05/13/22 15:25: Patient has a follow up appointment scheduled for Friday, May 20, 2022 at 11:[address] Zavala. Clinic will call patient with appointment information. Original Note: Urology F/U Message sent to urology for follow up appointment request. Office will contact patient with appointment.
== END 2022-04-19 13:45 | disposition home or self-care (01) ==
PROVIDERS: Emergency Provider Family Medicine
DX: N47.1 Phimosis (principal); N48.1 Balanitis; Z79.84 Long term (current) use of oral hypoglycemic drugs; Z79.4 Long term (current) use of insulin; I25.10 Atherosclerotic heart disease of native coronary artery without angina pectoris; E11.9 Type 2 diabetes mellitus without complications; I10 Essential (primary) hypertension; Z85.528 Personal history of other malignant neoplasm of kidney; G35 Multiple sclerosis; Z90.5 Acquired absence of kidney; Z87.891 Personal history of nicotine dependence
CPT/HCPCS: 99283

== ENCOUNTER → 2022-05-20 08:24 | Outpatient (BNVA) | payer OTHER, SELFPAY | PROVIDERS: PCP Urology; Visit Provider Urology | DX: N47.2 Paraphimosis (principal) | CPT/HCPCS: 81003; 99213 ==

== ENCOUNTER → 2022-06-01 17:55 | Outpatient (BNVA) | payer OTHER, SELFPAY | PROVIDERS: PCP Urology; Visit Provider Urology | DX: N47.2 Paraphimosis (principal) | CPT/HCPCS: 88304 ==

== ENCOUNTER → 2022-08-05 07:58 | Outpatient (BNVA) | payer OTHER, SELFPAY | PROVIDERS: PCP Urology; Visit Provider Urology | DX: N47.1 Phimosis (principal) | CPT/HCPCS: 81003; 99212 ==

== ENCOUNTER 2023-02-06 06:00 | Outpatient (RCR) | payer OTHER, SELFPAY | END 2023-02-26 23:59 | disposition home or self-care (01) | LOC: APT 06:00 | PROVIDERS: Visit Provider Family Medicine | DX: I70.213 Atherosclerosis of native arteries of extremities with intermittent claudication, bilateral legs (principal) | CPT/HCPCS: 97110; 97161 ==

== ENCOUNTER 2023-02-27 06:00 | Outpatient (RCR) | payer OTHER, SELFPAY | END 2023-03-29 23:59 | disposition home or self-care (01) | LOC: APT 06:00 | PROVIDERS: Visit Provider Family Medicine | DX: I70.213 Atherosclerosis of native arteries of extremities with intermittent claudication, bilateral legs (principal) | CPT/HCPCS: 97110 ==

== ENCOUNTER 2023-03-15 13:19 | Outpatient (CLI) | payer OTHER, SELFPAY ==
--- NOTE | 2023-03-15 13:45 | USCV_ITS ---
Brian Hinkle Age: 77 Gender: M : 1945 Exam Date: 03/15/2023 14:07 Ordering Phys: Enrique Garland MD ([email or web address]) Technologist: Roger Lamar Exam Location: [facility] [place] Indication: SOB BP: 124 / 71 HR: 66 Rhythm: Sinus Technical Quality: Adequate MEASUREMENTS (Male / Female) Normal Values 2D ECHO LVOT Diameter 2.2 cm LV Ejection Fraction MOD 2C 63.6 % LV Ejection Fraction 2C AL 63.5 % LA Diameter 3.2 cm LA Width 3.5 cm LA Height 4.1 cm RA Width 2.1 cm RA Height 4.6 cm Aorta at Sinotubular Diameter 2.2 cm M-MODE Aortic Annulus Diameter 2.8 cm LA Ao Ratio MM 1.1 MV E Point Septal Separation 0.5 cm DOPPLER AV Peak Velocity 217.7 cm/s LVOT Peak Velocity 127.0 cm/s AV Area Cont Eq vti 2.4 cm squared AV Area Cont Eq pk 2.1 cm squared MV Peak Velocity 125.0 cm/s MV Area PHT 4.2 cm squared Mitral E to A Ratio 0.7 MV E' Velocity 33.0 cm/s Mitral E to MV E' Ratio 7.9 Mitral E to LV E' Lateral Ratio 8.1 Mitral E to LV E' Septal Ratio 7.8 TR Peak Velocity 260.6 cm/s TR Peak Gradient 27.2 mmHg TR Mean Velocity 203.2 cm/s TR Mean Gradient 18.0 mmHg TR Velocity Time Integral 62.7 cm Right Atrial Pressure 8.0 mmHg Pulmonary Artery Systolic Pressu 35.2 mmHg PV Peak Velocity 130.0 cm/s RV Acceleration Time 0.1 s RV Ejection Time 0.2 s RV AcT/ET 0.5 FINDINGS Left Ventricle Normal left ventricular size and systolic function, EF 62 %. No regional wall motion abnormalities. Grade I/IV diastolic dysfunction (abnormal relaxation filling pattern), normal to mildly elevated filling pressures. Right Ventricle The right ventricle is normal in size and function. Right Atrium The right atrium is normal in size. Left Atrium Normal left atrial size. Lipomatous dystrophy of the interatrial septum Mitral Valve Trace mitral valve regurgitation. Aortic Valve Aortic valve sclerosis. The peak velocity across the aortic valve is 2.15 m/s with a peak gradient of 19 and a mean gradient of 9 mmHg. Tricuspid Valve Trace tricuspid valve regurgitation. Estimated pulmonary artery peak systolic pressure 35 mmHg Pulmonic Valve Pulmonic valve not well visualized. Pericardium Normal pericardium without effusion. Aorta Normal aortic annulus size. IVC Inferior vena cava not visualized. CONCLUSIONS Normal left ventricular size and systolic function, EF 62 %. No regional wall motion abnormalities. Grade I/IV diastolic dysfunction (abnormal relaxation filling pattern), normal to mildly elevated filling pressures. Trace mitral valve regurgitation. Lipomatous dystrophy of the interatrial septum. Aortic valve sclerosis. The peak velocity across the aortic valve is 2.15 m/s with a peak gradient of 19 and a mean gradient of 9 mmHg. Trace tricuspid valve regurgitation. Estimated pulmonary artery peak systolic pressure 35 mmHg There is no pericardial effusion. There are no intracardiac masses. No similar previous studies are available for comparison Dr Enrique Garland MD [facility] (Electronically Signed) Final Date: 17 Mar 2023 15:49 S
== END 2023-03-15 13:20 | disposition home or self-care (01) ==
PROVIDERS: PCP Family Medicine; Visit Provider Internal Medicine Cardiovascular Disease
DX: R07.9 Chest pain, unspecified (principal); R06.02 Shortness of breath; R06.09 Other forms of dyspnea; I70.0 Atherosclerosis of aorta; I12.9 Hypertensive chronic kidney disease with stage 1 through stage 4 chronic kidney disease, or unspecified chronic kidney disease; N18.9 Chronic kidney disease, unspecified; E78.5 Hyperlipidemia, unspecified; I25.10 Atherosclerotic heart disease of native coronary artery without angina pectoris
CPT/HCPCS: 93005; 93306; 99204

== ENCOUNTER → 2023-05-03 09:06 | Outpatient (BNVA) | payer OTHER, SELFPAY | PROVIDERS: PCP Family Medicine; Visit Provider Nurse Practitioner Family | DX: L81.4 Other melanin hyperpigmentation (principal); L85.3 Xerosis cutis; Z71.89 Other specified counseling; L57.8 Other skin changes due to chronic exposure to nonionizing radiation; L57.0 Actinic keratosis; L82.1 Other seborrheic keratosis; L21.8 Other seborrheic dermatitis; Z85.828 Personal history of other malignant neoplasm of skin; Z87.891 Personal history of nicotine dependence | CPT/HCPCS: 11102; 17004; 99214 ==

== ENCOUNTER 2023-08-03 13:44 | Emergency (ER) | payer OTHER, SELFPAY ==
[2023-08-03 13:52] VITALS: BP 114/60; PULSE 69; RESP 17; TEMP 36.6; O2SAT 95
--- NOTE | 2023-08-03 14:07 | ECG_ITS ---
[facility] Test Date: 2023-08-03 Pat Name: Brian Hinkle Department: Room: Gender: Male Snaker: : 1945 Requested By: Dylan Brown Order Number: [id number] Rebecca MD: Navarro Smiley M.D. Measurements Intervals [place] Rate: 55 P: 81 CT: 262 QRS: -37 QRSD: 130 T: 25 QT: 410 QTc: 393 Interpretive Statements SINUS BRADYCARDIA WITH FIRST DEGREE AV BLOCK LEFT AXIS DEVIATION [QRS AXIS < -30] POSSIBLE RIGHT VENTRICULAR CONDUCTION DELAY [RSR (QR) IN V1/V2] Compared to ECG 03/01/2023 14:35:37 First degree AV block now present Left-axis deviation now present Atrial-paced complex(es) or rhythm no longer present Ventricular-paced complex(es) or rhythm no longer present Electronically Signed On 08-03-2023 15:56:24 CDT by Navarro Smiley M.D. [email or web address]
--- NOTE | 2023-08-03 14:17 | PC.PHAR ---
MIGUEL ANGEL RICH FOR MED LIST 2:17 PM 08/03/23
--- NOTE | 2023-08-03 14:20 | W.ED.DIZZY ---
HPI - Dizziness General: Chief Complaint: Recheck/Abnormal Lab/Rx Stated Complaint: dizzy, labs, va sent Time Seen by Provider: 08/03/23 14:06 Source: patient Mode of arrival: ambulatory History of Present Illness: HPI Narrative: 77-year-old male presents emergency room at the behest of the CT's complaints of dizziness last few days he has not had any chest discomfort evidently he had a troponin at the CT clinic clinic that came back at 11 he was advised to come to the emergency room because they were concerned he had a heart attack patient denies having any chest pain now or previously. He is diabetic he has a history of hypertension, and history of coronary artery disease. He was primarily asked to go to the emergency room because of the elevated troponin at 11. MD elicited complaint: dizziness and lightheadedness Onset (ago): day(s) Severity: mild Exacerbating factors: nothing Relieving factors: nothing Associated symptoms: Denies abnormal vaginal bleeding, change in hearing, chest pain, chills, cough, diaphoresis, ear discharge, ear pressure, fevers/chills, headache(s), malaise, nausea, nasal congestion, palpitations, rash, short of breath, syncope, tinnitus, vomiting or weakness Review of Systems Const: Denies: fever(s), chills, malaise or diaphoresis ENMT: Denies: ear discharge, change in hearing, tinnitus or nasal congestion Card: Denies: chest pain, palpitations or syncope Resp: Denies: dyspnea, productive cough or non-productive cough GI: Denies: abdominal pain, nausea or vomiting : Denies: flank pain, dysuria, urinary frequency or urinary urgency Musc: Denies: neck pain or back pain Skin/Breast: Denies: rash or pruritus Neuro: Denies: headache(s) PFSH ED PFSH: Medical History BPH (benign prostatic hyperplasia) CAD (coronary artery disease) Chronic kidney disease Diabetes mellitus HLD (hyperlipidemia) HTN (hypertension) Multiple sclerosis Renal cancer Surgical History History of coronary artery stent placement History of nephrectomy Family History Mother , at age 81 Acute leukemia Father , at age 76 Tooth abscess Brother , in his 70 Cancer Colon Cancer Brother , 2nd brother in 70s Cancer colon cancer Brother Bladder cancer Social History Smoking and tobacco status: never smoked Alcohol intake: never Household members: spouse Marital status: Current occupational status: retired Physical Exam Const: GENERAL APPEARANCE: cooperative and comfortable ORIENTATION/CONSCIOUSNESS: Yes awake, Yes oriented to person, Yes oriented to place and Yes oriented to time HENMT: COMMON NORMALS: normocephalic, atraumatic and hearing grossly normal bilaterally HEAD & SCALP: normocephalic and atraumatic Resp: COMMON NORMALS: normal respiratory effort, No retractions, No use of accessory muscles and clear to auscultation bilaterally AUSCULTATION: clear to auscultation bilaterally Cardio: COMMON NORMALS: regular rate, regular rhythm and No murmurs present (Cardio) RATE: regular rate RHYTHM: regular rhythm GI: COMMON NORMALS: Soft to palpation and No hepatosplenomegaly present AUSCULTATION: Yes normoactive bowel sounds PALPATION: Yes Soft to palpation, No Tenderness to palpation present (GI), No Guarding due to palpation present (GI) and Yes No hepatosplenomegaly present Extremity: COMMON NORMALS: normal to inspection, capillary refill normal, no clubbing, cyanosis or edema, no calf tenderness and no pedal edema Neuro: SENSORIUM/ORIENTATION: Yes oriented to person, Yes oriented to place and Yes oriented to time Skin: COMMON NORMALS: no rashes or lesions noted GENERAL SKIN EXAM: no rashes or lesions noted Course Vital Signs: Vital signs: Vital Signs Temperature 97.8 F 08/03/23 13:52 Pulse Rate 61 08/03/23 15:49 Respiratory Rate 18 08/03/23 15:49 Blood Pressure 102/48 08/03/23 15:49 Pulse Oximetry 98 08/03/23 15:49 Oxygen Delivery Me thod Room Air 08/03/23 15:49 MDM - Dizziness Medical Decision Making Troponin 26 slightly elevated but below his previously established baseline. These troponins are elevated because of his chronic kidney disease he is not having any chest pain he has no acute EKG changes at this timeShaneka Dietz however further cardiac evaluation as an outpatient if needed no evidence of acute coronary syndrome at this time. Medical Records I reviewed the patient's medical records. Lab Data I reviewed the patient's lab results. 08/03/23 14:20 08/03/23 14:20 Laboratory Results WBC 6.19 10^3/uL (3.29-11.43) 08/03/23 14:20 RBC 4.78 10^6/uL (3.85-5.65) 08/03/23 14:20 Hgb 14.00 g/dL (11.27-16.99) 08/03/23 14:20 Hct 42.0 % (37-53) 08/03/23 14:20 MCV 87.9 fl (82-101) 08/03/23 14:20 MCH 29.3 pg (27-33) 08/03/23 14:20 MCHC 33.3 g/dL (30-55) 08/03/23 14:20 RDW 13.4 % (12.1-15.1) 08/03/23 14:20 Plt Count 216 10^3/cmm (157-399) 08/03/23 14:20 MPV 10.0 fL (7.4-10.4) 08/03/23 14:20 Neut % (Auto) 51.5 % 08/03/23 14:20 Lymph % (Auto) 33.6 % 08/03/23 14:20 [place] % (Auto) 9.7 % 08/03/23 14:20 Eos % (Auto) 4.2 % 08/03/23 14:20 Baso % (Auto) 0.8 % 08/03/23 14:20 Neut # (Auto) 3.19 10^3/uL (1.8-7.7) 08/03/23 14:20 Lymph # (Auto) 2.1 10^3/uL (0.8-4.8) 08/03/23 14:20 [place] # (Auto) 0.6 10^3/uL (0.2-0.9) 08/03/23 14:20 Eos # (Auto) 0.3 10^3/uL (0.0-0.8) 08/03/23 14:20 Baso # (Auto) 0.1 10^3/uL (0.0-0.1) 08/03/23 14:20 Nucleated RBC % (auto) 0 % 08/03/23 14:20 Nucleated RBCs # 0.0 /100WBC 08/03/23 14:20 Sodium 137 mmol/L (136-145) 08/03/23 14:20 Potassium 4.1 mmol/L (3.5-5.1) 08/03/23 14:20 Chloride 100 mmol/L (98-107) 08/03/23 14:20 Carbon Dioxide 25 mmol/L (22-29) 08/03/23 14:20 Anion Gap 16.1 (5-19) 08/03/23 14:20 BUN 24 mg/dL (8-23) H 08/03/23 14:20 Creatinine 1.7 mg/dL (0.7-1.2) H 08/03/23 14:20 GFR Calculation Not Reportable 08/03/23 14:20 Glucose 168 mg/dL (65-115) H 08/03/23 14:20 Calculated Osmolality 292 mOsm/kg (285-295) 08/03/23 14:20 Calcium 9.0 mg/dL (8.5-10.5) 08/03/23 14:20 Total Bilirubin 0.3 mg/dL (0.15-1.2) 08/03/23 14:20 AST 13 U/L (0-40) 08/03/23 14:20 ALT < 5 U/L (0-41) 08/03/23 14:20 Alkaline Phosphatase 71 U/L (40-130) 08/03/23 14:20 Troponin T Baseline 26 ng/L (0-15) H 08/03/23 14:20 Total Protein 7.4 g/dL (6.6-8.7) 08/03/23 14:20 Albumin 4.2 g/dL (3.5-5.2) 08/03/23 14:20 Globulin 3.2 g/dL (1.3-4.6) 08/03/23 14:20 No radiology studies performed this visit Discharge Plan Discharge Patient Disposition: Home Clinical Impression: HTN (hypertension), Chronic kidney disease Condition: Stable Prescriptions: No Action nortriptyline 75 mg capsule 75 mg PO BEDTIME amlodipine 2.5 mg tablet 2.5 mg PO DAILY lisinopril 40 mg tablet 20 mg PO DAILY cholecalciferol (vitamin D3) 25 mcg (1,000 unit) capsule 25 mcg PO DAILY hydrochlorothiazide 25 mg tablet 12.5 mg PO DAILY insulin glargine [Lantus U-100 Insulin] 100 unit/mL Solution See Rx Instructions .ROUTE .COMPLEX Rx Instructions: 80 unit subcutaneously in the morning-15 units subcut in the evening hydrocodone-acetaminophen 5-325 mg Tablet See Rx Instructions .ROUTE .COMPLEX PRN (Reason: Pain) Rx Instructions: TAKE 1 TABLET BY MOUTH EVERY 4 TO 6 HOURS NEEDED FOR PAIN. MAX 2 TABLETS PER DAY. MUST LAST 30 DAYS. DO NOT EXCEED 4000 MG PER DAY OF ACETAMINOPHEN FROM ALL MEDS. glipizide 10 mg Tablet 10 mg PO BID pravastatin 80 mg Tablet 80 mg PO BEDTIME tamsulosin 0.4 mg Capsule 0.4 mg PO DAILY metoprolol tartrate 25 mg Tablet 12.5 mg PO BID omega-3 fatty acids 500 mg Capsule 1,000 mg PO BID ketoconazole 2 % Shampoo See Rx Instructions .ROUTE .COMPLEX Rx Instructions: APPLY TO SCALP 2 TO 3 TIMES PER WEEK AND ALLOW TO SIT 5 MINUTES BEFORE RINSING. Aspir-81 81 mg Tablet,Delayed Release (Dr/Ec) 81 mg PO DAILY methocarbamol 750 mg Tablet 750 mg PO TID PRN (Reason: Muscle Spasm) hydrocortisone 2.5 % Ointment See Rx Instructions .ROUTE .COMPLEX Rx Instructions: APPLY SPARINGLY TO AFFECTED AREA(S) ENOUGH TO COVER, TOPICALLY. MAY USE ON EARS. alogliptin 12.5 mg Tablet 12.5 mg PO DAILY Discharge Orders: Discharge ED (Routine); Ordered 08/03/23 Ordered By: Dylan Robertson Referrals: Ml Herrmann MD [Primary Care Provider] - Discharge Diet: Usual diet Discharge Activity: Increase activity as tolerated Patient Instructions: Opioid Safety, Pain Management Activity Restrictions/Additional Instructions: You are seen today complaining of an elevated CPK. Was slightly elevated but below your previously established baseline this is likely due to your chronic kidney disease. Your EKG was normal. Further work-up can be done as an outpatient through cardiology. Coding Level of Care Code ED Event Representative for Grace Frankel
[2023-08-03 14:30] VITALS: BP 138/80; PULSE 55; RESP 18; O2SAT 95
[2023-08-03 14:38] VITALS: BP 102/48; BP 117/64; BP 99/55; PULSE 53; PULSE 57; PULSE 59
[2023-08-03 15:03] LABS: Basophils # 0.1 10^3/uL (0.0-0.1); Basophils % 0.8 %; Eosinophils # 0.3 10^3/uL (0.0-0.8); Eosinophils % 4.2 %; Lymphocytes # 2.1 10^3/uL (0.8-4.8); Lymphocytes % 33.6 %; Mean Corpuscular HGB Conc 33.3 g/dL (30-55); Mean Corpuscular Hemoglobin 29.3 pg (27-33); Mean Corpuscular Volume 87.9 fl (82-101); Monocytes # 0.6 10^3/uL (0.2-0.9); Monocytes % 9.7 %; Neutrophils # 3.19 10^3/uL (1.8-7.7); Neutrophils % 51.5 %; Nucleated Red Blood Cells % 0 %; Platelet Count 216 10^3/cmm (157-399); Red Blood Count 4.78 10^6/uL (3.85-5.65); Red Cell Distribution Width 13.4 % (12.1-15.1); White Blood Count 6.19 10^3/uL (3.29-11.43)
[2023-08-03 15:30] LABS: Alanine Aminotransferase < 5 U/L (0-41); Albumin Level 4.2 g/dL (3.5-5.2); Alkaline Phosphatase 71 U/L (40-130); Anion Gap 16.1 (5-19); Aspartate Amino Transferase 13 U/L (0-40); Blood Urea Nitrogen 24 mg/dL (8-23); Carbon Dioxide 25 mmol/L (22-29); Chloride 100 mmol/L (98-107); Globulin 3.2 g/dL (1.3-4.6); Glucose 168 mg/dL (65-115); Osmolality Calculated 292 mOsm/kg (285-295); Potassium 4.1 mmol/L (3.5-5.1); Sodium 137 mmol/L (136-145); Total Bilirubin 0.3 mg/dL (0.15-1.2); Total Protein 7.4 g/dL (6.6-8.7)
[2023-08-03 15:49] VITALS: BP 102/48; PULSE 61; RESP 18; O2SAT 98
[2023-08-03 15:49] LABS: Troponin(5th) Baseline 26 ng/L (0-15)
== END 2023-08-03 16:05 | disposition home or self-care (01) ==
PROVIDERS: Emergency Provider Family Medicine; PCP Family Medicine
DX: I12.9 Hypertensive chronic kidney disease with stage 1 through stage 4 chronic kidney disease, or unspecified chronic kidney disease (principal); E11.22 Type 2 diabetes mellitus with diabetic chronic kidney disease; N18.9 Chronic kidney disease, unspecified; I25.10 Atherosclerotic heart disease of native coronary artery without angina pectoris; E78.5 Hyperlipidemia, unspecified; G35 Multiple sclerosis; Z85.528 Personal history of other malignant neoplasm of kidney; Z90.5 Acquired absence of kidney; Z79.4 Long term (current) use of insulin; Z79.82 Long term (current) use of aspirin; Z79.84 Long term (current) use of oral hypoglycemic drugs
CPT/HCPCS: 36415; 80053; 84484; 85025; 93005; 99284

== ENCOUNTER → 2023-09-13 15:12 | Outpatient (BNVA) | payer OTHER, SELFPAY | PROVIDERS: PCP Family Medicine; Visit Provider Internal Medicine Cardiovascular Disease | DX: R06.02 Shortness of breath (principal); E78.5 Hyperlipidemia, unspecified; I25.10 Atherosclerotic heart disease of native coronary artery without angina pectoris; I12.9 Hypertensive chronic kidney disease with stage 1 through stage 4 chronic kidney disease, or unspecified chronic kidney disease; E11.22 Type 2 diabetes mellitus with diabetic chronic kidney disease; N18.9 Chronic kidney disease, unspecified; Z79.4 Long term (current) use of insulin | CPT/HCPCS: 99214 ==

== ENCOUNTER 2023-09-20 07:09 | Outpatient (CLI) | payer OTHER, SELFPAY ==
[2023-09-20 07:22] VITALS: BMI 30.7
--- NOTE | 2023-09-20 07:57 | ECG_ITS ---
[facility] Test Date: 2023-09-20 Pat Name: Brian Hinkle Department: Room: Gender: Male Flow Worker: : 1945 Requested By: Enrique Garland Order Number: [id number] Rebecca MD: Enrique Garland M.D. Interpretive Statements NAME OF STUDY: LEXISCAN SESTAMIBI STRESS TEST INDICATION: ASHD; SHORTNESS OF BREATH PROCEDURE: At the baseline, the EKG revealed normal sinus rhythm with some nonspecific T wave changes. Minimal left axis deviation. The baseline heart was 63 bpm with a blood pressue of 150/50 mm of Hg Lexiscan was infused over a period of 20 seconds. A total of 0.4 milligrams of Lexiscan was infused. The stress phase was continued for a total of 5 minutes. Heart rate at the end of the stress phase was 66 bpm with a blood pressure 108/48 mm of Hg. The EKG at the peak infusion revealed no significant changes. Sestamibi was injected 20 seconds after the Lexiscan infusion. Heart rate at the end of the recovery phase was 65 bpm with a blood pressure of 119/65 mm of Hg. CONCLUSION: 1. No significant EKG changes with the LexiScan infusion 2. No LexiScan induced chest pain or cardiac arrhythmia 3. Normal blood pressure and heart rate response 4. Sestamibi/sestamibi perfusion scan pending; see separate report. Electronically Signed On 09-22-2023 14:09:32 SQL PROGRAMMER by Enrique Garland M.D. [id number]
--- NOTE | 2023-09-20 07:58 | NMCV_ITS ---
NM tracie perf SPECT r/s* [id number] Brian Hinkle Age: 78 Gender: M : 1945 Exam Date: 09/20/2023 08:15 Ordering Phys: Enrique Garland MD ([email or web address]) Technologist: NADEGE Butterfield Exam Location: [facility] Indications: CORONARY ANGIOPLASTY STATUS STRESS TEST [facility] IMAGE PROTOCOL Rest/Stress 1 Lexiscan Day Radiopharmaceutical Dose (mCi) Administration Site Administered by Rest: Tc-99m 10.6 IV NADEGE Juares Sestamibi Stress:Tc-99m 32.7 IV NADEGE Juares Sestamibi Rest: 20-Sep-2023 60 Discovery 630 Stress: 20-Sep-2023 30 Discovery 630 0.4mg Lexiscan. Images obtained in supine and prone position. SPECT RESULTS Technical Quality: Excellent Raw Data Analysis: Normal Image Corrections: No attenuation or motion correction applied Summed Stress Score: 12 Summed Rest Score: 5 Summed Difference Score: 7 PERFUSION FINDINGS Moderate area of moderate to severely decreased tracer uptake in the inferior, inferolateral and apical lateral regions. Seems to have significant reversibility in these regions FUNCTIONAL RESULTS (calculated via Gated SPECT) Stress Image LV EF (%): 82 Stress EDV (mL):103 TID: 1.13 Stress ESV (mL):19 FUNCTIONAL FINDINGS: Segmental wall motion analysis revealing no gross wall motion abnormalities IMPRESSIONS 1. Myocardial perfusion imaging revealing moderate area of moderate to severely decreased tracer uptake in the inferior, inferolateral and apical lateral regions with significant reversibility suggesting myocardial scarring with ischemia in the distribution of the right coronary artery/circumflex artery. 2. Normal LV ejection fraction of 82%. 3. LV wall motion analysis revealing no gross wall motion abnormalities. 4. Normal LV volume No similar previous studies are available for comparison Dr Enrique Garland MD [facility] (Electronically Signed) Final Date: 20 September 2023 12:55 S
[2023-09-20] MEDS: regadenoson 0.4 Mg/5 ml Syringe IVP (09:07)
[2023-09-20 09:31] VITALS: BP 131/86; PULSE 62
== END 2023-09-20 07:10 | disposition home or self-care (01) ==
LOC: CDL 07:09
PROVIDERS: PCP Family Medicine; Visit Provider Internal Medicine Cardiovascular Disease
DX: Z98.61 Coronary angioplasty status (principal)
CPT/HCPCS: 36415; 78452; 93017; 96374; A9500; J2785

== ENCOUNTER → 2023-09-28 10:15 | Outpatient (BNVA) | payer OTHER, SELFPAY | PROVIDERS: PCP Family Medicine; Visit Provider Internal Medicine Cardiovascular Disease | DX: I25.10 Atherosclerotic heart disease of native coronary artery without angina pectoris (principal); R06.02 Shortness of breath; E78.2 Mixed hyperlipidemia; I12.9 Hypertensive chronic kidney disease with stage 1 through stage 4 chronic kidney disease, or unspecified chronic kidney disease; N18.31 Chronic kidney disease, stage 3a; E11.22 Type 2 diabetes mellitus with diabetic chronic kidney disease; Z79.4 Long term (current) use of insulin; I35.8 Other nonrheumatic aortic valve disorders | CPT/HCPCS: 99214 ==

== ENCOUNTER → 2024-03-20 13:40 | Outpatient (BNVA) | payer OTHER, SELFPAY | PROVIDERS: PCP Family Medicine; Visit Provider Internal Medicine Cardiovascular Disease | DX: I12.9 Hypertensive chronic kidney disease with stage 1 through stage 4 chronic kidney disease, or unspecified chronic kidney disease (principal); E11.22 Type 2 diabetes mellitus with diabetic chronic kidney disease; N18.9 Chronic kidney disease, unspecified; E78.2 Mixed hyperlipidemia; I25.10 Atherosclerotic heart disease of native coronary artery without angina pectoris; I35.8 Other nonrheumatic aortic valve disorders; Z79.4 Long term (current) use of insulin | CPT/HCPCS: 99214 ==

== ENCOUNTER → 2024-05-03 08:44 | Outpatient (BNVA) | payer OTHER, SELFPAY | PROVIDERS: PCP Family Medicine; Visit Provider Nurse Practitioner Family | DX: D48.5 Neoplasm of uncertain behavior of skin (principal); L57.0 Actinic keratosis; L81.4 Other melanin hyperpigmentation; D22.5 Melanocytic nevi of trunk; L57.8 Other skin changes due to chronic exposure to nonionizing radiation; L82.1 Other seborrheic keratosis; L21.8 Other seborrheic dermatitis; Z85.828 Personal history of other malignant neoplasm of skin | CPT/HCPCS: 11102; 17004; 99214 ==

== ENCOUNTER → 2024-05-20 08:52 | Outpatient (BNVA) | payer OTHER, SELFPAY | PROVIDERS: PCP Family Medicine; Visit Provider Dermatology | DX: C44.319 Basal cell carcinoma of skin of other parts of face (principal); L57.0 Actinic keratosis; D18.01 Hemangioma of skin and subcutaneous tissue; L81.4 Other melanin hyperpigmentation; L82.1 Other seborrheic keratosis | CPT/HCPCS: 13132; 17000; 17311; 99213 ==

== ENCOUNTER 2024-05-27 13:10 | Emergency (ER) | payer OTHER, MEDICARE, SELFPAY ==
[2024-05-27] VITALS (24 sets, daily range): BP systolic 106–170; BP diastolic 67–111; PULSE 60–81; RESP 12–26; TEMP 36.7; O2SAT 86–95; BMI 29.5
--- NOTE | 2024-05-27 13:19 | XRR_ITS ---
PROCEDURE INFORMATION: Exam: XR Chest Exam date and time: 05/27/2024 1:25 PM Age: 78 years old Clinical indication: Other: Weakness TECHNIQUE: Imaging protocol: Radiologic exam of the chest. Views: 1 view. COMPARISON: CR XR chest 1V portable [id number] 11/20/2021 6:12 AM FINDINGS: Lungs: No focal consolidation. There is a 7 cm left infrahilar opacity. Pleural spaces: No evidence of pneumothorax. No evidence of pleural effusion. Heart/Mediastinum: Stimulator type leads project over the midthoracic spine. Bones/joints: No evidence of acute osseous abnormality. XR/XR chest 1V portable [id number] IMPRESSION: 1. 7 mm left infrahilar opacity suggestive of lung mass.
--- NOTE | 2024-05-27 13:33 | CTR_ITS ---
PROCEDURE INFORMATION: Exam: CT Head Without Contrast Exam date and time: 05/27/2024 1:46 PM Age: 78 years old Clinical indication: Other: Weakness TECHNIQUE: Imaging protocol: Computed tomography of the head without contrast. Radiation optimization: All CT scans at this facility use at least one of these dose optimization techniques: automated exposure control; mA and/or kV adjustment per patient size (includes targeted exams where dose is matched to clinical indication); or iterative reconstruction. COMPARISON: No relevant prior studies available. RADIATION DOSE METRICS: Total DLP (mGy-cm): 1057.28 FINDINGS: Brain: Multiple nodular lesions in both cerebral hemispheres suggestive of metastatic disease. There is prominent vasogenic edema in both frontal lobes, [id number]. Additional vasogenic edema in the left parietotemporal region. No evidence of intra-axial or extra-axial hemorrhage. Very mild 1-2 mm leftward midline shift. Basilar cisterns are patent. Cerebral ventricles: No hydrocephalus. Paranasal sinuses: The visualized paranasal sinuses are well aerated. Mastoid air cells: The visualized mastoids and middle ears are clear. Bones: Calvarium is intact. No evidence of acute fracture. Soft tissues: No gross soft tissue abnormality. CT/CT head wo con* [id number] IMPRESSION: 1. Metastatic disease disease with prominent vasogenic edema and mild 1-2 mm leftward midline shift.
--- NOTE | 2024-05-27 13:33 | CTR_ITS ---
PROCEDURE INFORMATION: Exam: CT Chest Without Contrast; Diagnostic Exam date and time: 05/27/2024 1:48 PM Age: 78 years old Clinical indication: Other: Lung mass TECHNIQUE: Imaging protocol: Diagnostic computed tomography of the chest without contrast. Radiation optimization: All CT scans at this facility use at least one of these dose optimization techniques: automated exposure control; mA and/or kV adjustment per patient size (includes targeted exams where dose is matched to clinical indication); or iterative reconstruction. COMPARISON: CR XR chest 1V portable [id number] 05/27/2024 1:25 PM RADIATION DOSE METRICS: Total DLP (mGy-cm): 524.35 FINDINGS: Thyroid: Grossly unremarkable. Lungs: There is an approximately 5.4 cm AP x 6.5 cm transverse by 6.6 cm craniocaudal left lower lobe lung mass. There is a 14 mm satellite nodule inferior to the mass. There is associated narrowing/occlusion of the left lower lobe segmental bronchi with associated volume loss. There appears to be endobronchial spread of the mass along the left lower lobe bronchi. No pneumothorax. No pleural effusion. Heart: No cardiomegaly. No pericardial effusion. Coronary arteries: There are incidental coronary artery calcifications. Mediastinal space: Trachea is patent. There is dilation and wall thickening of the esophagus diffusely, possibly sequela of chronic reflux. Gastric contents and a small amount of fluid is noted within the esophagus. Lymph nodes: No evidence of mediastinal adenopathy. Evaluation for hilar adenopathy is limited by lack of IV contrast. Vasculature: No evidence of aneurysmal dilatation of the thoracic aorta. Evaluation for acute vascular injury or thrombosis is limited by lack of IV contrast. Bones/joints: No evidence of acute fracture or aggressive osseous lesion. Stimulator leads terminating in the midthoracic spinal canal. Soft tissues: No evidence of fluid collection or hematoma in the superficial soft tissues. Other findings: There are faint hepatic hypodensities raising the question of metastatic disease. Follow-up evaluation at time of staging is recommended. Prior right-sided nephrectomy noted. CT/CT chest wo con [id number] IMPRESSION: 1. Left lower lobe lung mass. Surgical/oncology evaluation is recommended.
--- NOTE | 2024-05-27 13:34 | ED_ITS ---
HPI - Weakness 2 General: Chief complaint: Weakness Stated complaint: stroke like symptoms (3xdays ago) Time Seen by Provider: 05/27/24 13:21 Source: patient Mode of arrival: ambulatory Limitations: no limitations History of Present Illness: 78-year-old male has a history of MS sta candice he has been having increased weakness for the last 4 days his last known normal was 4 days ago states that he is had a harder time walking along with left-sided weakness mainly in his left arm he had some slight slurred speech as well. States he had some falls 2 over the last 4 days did hit his head once he denies any pain anywhere. Associated symptoms: Denies chest pain, chills, fever(s), headache(s), nausea or vomiting Review of Systems 2 Const: Denies: fever(s), chills, body aches or change in appetite ENMT: Denies: throat pain or dental pain Card: Denies: chest pain Resp: Denies: dyspnea GI: Denies: abdominal pain, nausea, vomiting or diarrhea Musc: Denies: neck pain or back pain Skin/Breast: Denies: rash Neuro: Reports: weakness in extremities; Denies: headache(s) PFSH ED 2 PFSH: Medical History Chronic kidney disease BPH (benign prostatic hyperplasia) Diabetes mellitus Multiple sclerosis Renal cancer CAD (coronary artery disease) HLD (hyperlipidemia) HTN (hypertension) Surgical History History of nephrectomy History of coronary artery stent placement Family History Mother , at age 81 Acute leukemia Father , at age 76 Tooth abscess Brother , in his 70 Cancer Colon Cancer Brother , 2nd brother in 70s Cancer colon cancer Brother Bladder cancer Social History Smoking and tobacco/nicotine status: never used tobacco/nicotine Alcohol intake: never Household members: spouse Marital status: Current occupational status: retired Physical Exam 2 Const: COMMON NORMALS: no acute distress, patient oriented x3 and healthy appearing HENMT: COMMON NORMALS: normocephalic and atraumatic HEAD & SCALP: n ormocephalic and atraumatic Eye: COMMON NORMALS: Equal, round and reactive pupils present and EOMs intact bilaterally PUPIL: Yes Equal, round and reactive pupils present Neck/C-Spine: COMMON NORMALS: full ROM and supple Chest: COMMONS NORMALS: normal inspection of the chest Resp: COMMON NORMALS: normal respiratory effort, No retractions, No use of accessory muscles and clear to auscultation bilaterally AUSCULTATION: clear to auscultation bilaterally Cardio: COMMON NORMALS: regular rate, regular rhythm and No murmurs present (Cardio) RATE: regular rate RHYTHM: regular rhythm Extremity: COMMON NORMALS: normal to inspection and full ROM Neuro: COMMON NORMALS: patient oriented x3, moves all extremities and no focal motor deficits Psych: COMMON NORMALS: mental status grossly normal, Normal thought process present and cooperative THOUGHT PROCESS: Normal thought process present Skin: COMMON NORMALS: no rashes or lesions noted and no wounds GENERAL SKIN EXAM: no rashes or lesions noted Course 2 Vital Signs: Vital signs: Vital Signs Temperature 98.0 F 05/27/24 13:14 Pulse Rate 64 05/27/24 15:10 Respiratory Rate 15 05/27/24 15:10 Blood Pressure 170/105 05/27/24 15:10 Pulse Oximetry 93 05/27/24 15:10 Oxygen Delivery Me thod Room Air 05/27/24 15:10 MDM - Weakness Medical Decision Making Patient presents for some slurred speech along with left-sided weakness he is found to have likely a lung mass with brain metastases I did speak to [facility] will transfer there for higher level of care of neurosurgery along with pulmonology. Medical Records I reviewed the patient's medical records. Lab Data I reviewed the patient's lab results. 05/27/24 13:38 05/27/24 13:38 Radiology Impressions Chest X-Ray 05/27/24 13:19 IMPRESSION: 1. 7 mm left infrahilar opacity suggestive of lung mass. ADDENDUM: 05/27/24 1405 IMPRESSION: 1. 7 cm left infrahilar opacity suggestive of lung mass. Chest CT 05/27/24 13:33 IMPRESSION: 1. Left lower lobe lung mass. Surgical/oncology evaluation is recommended. Head CT 05/27/24 13:33 IMPRESSION: 1. Metastatic disease disease with prominent vasogenic edema and mild 1-2 mm leftward midline shift. Laboratory Results WBC 8.23 10^3/uL (3.29-11.43) 05/27/24 13:38 RBC 5.06 10^6/uL (3.85-5.65) 05/27/24 13:38 Hgb 13.00 g/dL (11.27-16.99) 05/27/24 13:38 Hct 41.5 % (37-53) 05/27/24 13:38 MCV 82.0 fl (82-101) 05/27/24 13:38 MCH 25.7 pg (27-33) L 05/27/24 13:38 MCHC 31.3 g/dL (30-55) 05/27/24 13:38 RDW 13.9 % (12.1-15.1) 05/27/24 13:38 Plt Count 328 10^3/cmm (157-399) 05/27/24 13:38 MPV 9.5 fL (7.4-10.4) 05/27/24 13:38 Neut % (Auto) 64.2 % 05/27/24 13:38 Lymph % (Auto) 25.3 % 05/27/24 13:38 [place] % (Auto) 6.8 % 05/27/24 13:38 Eos % (Auto) 2.6 % 05/27/24 13:38 Baso % (Auto) 0.9 % 05/27/24 13:38 Neut # (Auto) 5.29 10^3/uL (1.8-7.7) 05/27/24 13:38 Lymph # (Auto) 2.1 10^3/uL (0.8-4.8) 05/27/24 13:38 [place] # (Auto) 0.6 10^3/uL (0.2-0.9) 05/27/24 13:38 Eos # (Auto) 0.2 10^3/uL (0.0-0.8) 05/27/24 13:38 Baso # (Auto) 0.1 10^3/uL (0.0-0.1) 05/27/24 13:38 Nucleated RBC % (auto) 0 % 05/27/24 13:38 Nucleated RBCs # 0.0 /100WBC 05/27/24 13:38 PT 14.80 SECONDS (12.1-14.9) 05/27/24 13:38 INR 1.13 (0.8-1.2) 05/27/24 13:38 Sodium 139 mmol/L (136-145) 05/27/24 13:38 Potassium 4.7 mmol/L (3.5-5.1) 05/27/24 13:38 Chloride 101 mmol/L (98-107) 05/27/24 13:38 Carbon Dioxide 24 mmol/L (22-29) 05/27/24 13:38 Anion Gap 18.7 (5-19) 05/27/24 13:38 BUN 23 mg/dL (8-23) 05/27/24 13:38 Creatinine 1.4 mg/dL (0.7-1.2) H 05/27/24 13:38 GFR Calculation Not Reportable 05/27/24 13:38 Glucose 173 mg/dL (65-115) H 05/27/24 13:38 POC Glucose 146 mg/dL (70-110) H 05/27/24 13:38 Calculated Osmolality 296 mOsm/kg (285-295) H 05/27/24 13:38 Calcium 9.9 mg/dL (8.5-10.5) 05/27/24 13:38 Magnesium 2.4 mg/dL (1.7-2.3) H 05/27/24 13:38 Total Bilirubin 0.3 mg/dL (0.15-1.2) 05/27/24 13:38 AST 9 U/L (0-40) 05/27/24 13:38 ALT < 5 U/L (0-41) 05/27/24 13:38 Alkaline Phosphatase 87 U/L (40-130) 05/27/24 13:38 Total Protein 8.7 g/dL (6.6-8.7) 05/27/24 13:38 Albumin 4.2 g/dL (3.5-5.2) 05/27/24 13:38 Globulin 4.5 g/dL (1.3-4.6) 05/27/24 13:38 Urine Color Yellow (Yellow) 05/27/24 13:54 Urine Appearance Clear (CLEAR) 05/27/24 13:54 Urine pH 5 (5-7) 05/27/24 13:54 Ur Specific [place] 1.015 (1.005-1.030) 05/27/24 13:54 Urine Protein Neg (Negative) 05/27/24 13:54 Urine Glucose (UA) 4+ (Normal) H 05/27/24 13:54 Urine Ketones Negative (Negative) 05/27/24 13:54 Urine Blood Trace (Negative) H 05/27/24 13:54 Urine Nitrate Negative (Negative) 05/27/24 13:54 Urine Bilirubin Neg (Negative) 05/27/24 13:54 Urine Urobilinogen Norm mg/dL (Negative) 05/27/24 13:54 Ur Leukocyte Esterase Negative (Negative) 05/27/24 13:54 Urine RBC Rare /hpf (0-2) 05/27/24 13:54 Urine WBC None /hpf (0-5) 05/27/24 13:54 Ur Squamous Epith Cells None /hpf (0-5) 05/27/24 13:54 Amorphous Sediment Not Reportable 05/27/24 13:54 Urine Bacteria Trace /hpf (NONE) 05/27/24 13:54 All radiology interpretation(s) finalized by discharge Discharge Plan Discharge Patient Disposition: Xfer Short-Term Hosp Clinical Impression: Lung mass, Metastasis to brain, Left-sided weakness Condition: Stable Referrals: Ml Herrmann MD [Primary Care Provider] - Coding Level of Care Code ED Railroad Conductor for Katelyng Effied NIH stroke score NIHSS Level Of Consciousness - 1a: 0 Level Of Consciousness Questions - 1b: Both Correct Level Of Consciousness Commands - 1c: Both Correct Best Gaze - 2: Normal Visual [place] - 3: No Visual Loss Facial Palsy - 4: Normal Motor Arm Right - 5: No Drift Motor Arm Left - 5: Drift Motor Leg Right - 6: No Drift Motor Leg Left - 6: No Drift Limb Ataxia - 7: Absent Sensory - 8: Normal Best Language - 9: No Aphasia Dysarthia - 10: Mild/Moderate Dysarthia Extinction And Inattention - 11: 0 Score Total Score: 2
--- NOTE | 2024-05-27 13:37 | ECG_ITS ---
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 Measurements Intervals [place] Rate: 61 P: 35 [place]: 275 QRS: -40 QRSD: 126 T: 49 QT: 380 QTc: 385 Interpretive Statements BASELINE ARTIFACT. SUPRAVENTRICULAR RHYTHM LEFT AXIS DEVIATION [QRS AXIS < -30] MODERATE INTRAVENTRICULAR CONDUCTION DELAY [110+ ms QRS DURATION] MODERATE VOLTAGE CRITERIA FOR LVH, CONSIDER NORMAL VARIANT [MEETS CRITERIA IN ONE OF: R(aVL), S(V1), R(V5), R(V5/V6)+S(V1)] Compared to ECG 08/03/2023 14:24:12 Intraventricular conduction delay now present First degree AV block no longer present Electronically Signed On 05-27-2024 16:27:22 CDT by Oli Suggs M.D. [id number]
[2024-05-27 13:43] LABS: Glucose Point of Care 146 mg/dL (70-110)
[2024-05-27 13:49] LABS: Basophils # 0.1 10^3/uL (0.0-0.1); Basophils % 0.9 %; Eosinophils # 0.2 10^3/uL (0.0-0.8); Eosinophils % 2.6 %; Hematocrit 41.5 % (37-53); Lymphocytes # 2.1 10^3/uL (0.8-4.8); Lymphocytes % 25.3 %; Mean Corpuscular HGB Conc 31.3 g/dL (30-55); Mean Corpuscular Hemoglobin 25.7 pg (27-33); Mean Platelet Volume 9.5 fL (7.4-10.4); Monocytes # 0.6 10^3/uL (0.2-0.9); Monocytes % 6.8 %; Neutrophils # 5.29 10^3/uL (1.8-7.7); Neutrophils % 64.2 %; Nucleated Red Blood Cells % 0 %; Platelet Count 328 10^3/cmm (157-399); Red Blood Count 5.06 10^6/uL (3.85-5.65); Red Cell Distribution Width 13.9 % (12.1-15.1); White Blood Count 8.23 10^3/uL (3.29-11.43)
[2024-05-27 14:06] LABS: Alanine Aminotransferase < 5 U/L (0-41); Albumin Level 4.2 g/dL (3.5-5.2); Alkaline Phosphatase 87 U/L (40-130); Anion Gap 18.7 (5-19); Aspartate Amino Transferase 9 U/L (0-40); Blood Urea Nitrogen 23 mg/dL (8-23); Calcium 9.9 mg/dL (8.5-10.5); Carbon Dioxide 24 mmol/L (22-29); Chloride 101 mmol/L (98-107); Creatinine Clr Calc Pharmacy 49.9728; Globulin 4.5 g/dL (1.3-4.6); Glucose 173 mg/dL (65-115); Magnesium 2.4 mg/dL (1.7-2.3); Osmolality Calculated 296 mOsm/kg (285-295); Potassium 4.7 mmol/L (3.5-5.1); Sodium 139 mmol/L (136-145); Total Bilirubin 0.3 mg/dL (0.15-1.2); Total Protein 8.7 g/dL (6.6-8.7)
[2024-05-27 14:07] LABS: INR 1.13 (0.8-1.2)
[2024-05-27 14:22] LABS: Urine Appearance Clear (CLEAR); Urine Color Yellow (Yellow)
[2024-05-27 14:23] LABS: Add Urine Microscopic? YES; Bilirubin Urine Neg (Negative); Blood Urine Trace (Negative); Glucose Urine UA 4+ (Normal); Ketones Urine Negative (Negative); Leukocyte Esterase Urine Negative (Negative); Nitrate Urine Negative (Negative); Protein Urine Neg (Negative); Specific Gravity, Urine 1.015 (1.005-1.030); Urobilinogen Urine Norm (Negative); pH Urine 5 (5-7)
[2024-05-27 14:24] LABS: Add Urine Culture? No; Bacteria Urine TRACE /hpf; RBC Urine RARE /hpf (0-2)
[2024-05-27] MEDS: dexamethasone 10 mg/mL INJ IVP (14:26)
[2024-05-28] VITALS (34 sets, daily range): BP systolic 97–149; BP diastolic 63–90; PULSE 65–85; RESP 16; O2SAT 89–96
--- NOTE | 2024-05-28 01:50 | W.ED.WEAKNES ---
HPI - Weakness General: Chief complaint: Weakness Stated complaint: stroke like symptoms (3xdays ago) Time Seen by Provider: 05/27/24 13:21 Source: patient Mode of arrival: ambulatory Limitations: no limitations PFSH ED PFSH: Medical History Chronic kidney disease BPH (benign prostatic hyperplasia) Diabetes mellitus Multiple sclerosis Renal cancer CAD (coronary artery disease) HLD (hyperlipidemia) HTN (hypertension) Surgical History History of nephrectomy History of coronary artery stent placement Family History Mother , at age 81 Acute leukemia Father , at age 76 Tooth abscess Brother , in his 70 Cancer Colon Cancer Brother , 2nd brother in 70s Cancer colon cancer Brother Bladder cancer Social History Smoking and tobacco/nicotine status: never used tobacco/nicotine Alcohol intake: never Household members: spouse Marital status: Current occupational status: retired Course Vital Signs: Vital signs: Vital Signs Temperature 98.0 F 05/27/24 13:14 Pulse Rate 81 05/27/24 19:30 Respiratory Rate 16 05/28/24 02:14 Blood Pressure 146/85 05/28/24 01:00 Pulse Oximetry 90 05/28/24 03:30 Oxygen Delivery Me thod Room Air 05/27/24 15:10 MDM - Weakness Lab Data 05/27/24 13:38 05/27/24 13:38 Radiology Impressions Chest X-Ray 05/27/24 13:19 IMPRESSION: 1. 7 mm left infrahilar opacity suggestive of lung mass. ADDENDUM: 05/27/24 1405 IMPRESSION: 1. 7 cm left infrahilar opacity suggestive of lung mass. Chest CT 05/27/24 13:33 IMPRESSION: 1. Left lower lobe lung mass. Surgical/oncology evaluation is recommended. Head CT 05/27/24 13:33 IMPRESSION: 1. Metastatic disease disease with prominent vasogenic edema and mild 1-2 mm leftward midline shift. Laboratory Results WBC 8.23 10^3/uL (3.29-11.43) 05/27/24 13:38 RBC 5.06 10^6/uL (3.85-5.65) 05/27/24 13:38 Hgb 13.00 g/dL (11.27-16.99) 05/27/24 13:38 Hct 41.5 % (37-53) 05/27/24 13:38 MCV 82.0 fl (82-101) 05/27/24 13:38 MCH 25.7 pg (27-33) L 05/27/24 13:38 MCHC 31.3 g/dL (30-55) 05/27/24 13:38 RDW 13.9 % (12.1-15.1) 05/27/24 13:38 Plt Count 328 10^3/cmm (157-399) 05/27/24 13:38 MPV 9.5 fL (7.4-10.4) 05/27/24 13:38 Neut % (Auto) 64.2 % 05/27/24 13:38 Lymph % (Auto) 25.3 % 05/27/24 13:38 [place] % (Auto) 6.8 % 05/27/24 13:38 Eos % (Auto) 2.6 % 05/27/24 13:38 Baso % (Auto) 0.9 % 05/27/24 13:38 Neut # (Auto) 5.29 10^3/uL (1.8-7.7) 05/27/24 13:38 Lymph # (Auto) 2.1 10^3/uL (0.8-4.8) 05/27/24 13:38 [place] # (Auto) 0.6 10^3/uL (0.2-0.9) 05/27/24 13:38 Eos # (Auto) 0.2 10^3/uL (0.0-0.8) 05/27/24 13:38 Baso # (Auto) 0.1 10^3/uL (0.0-0.1) 05/27/24 13:38 Nucleated RBC % (auto) 0 % 05/27/24 13:38 Nucleated RBCs # 0.0 /100WBC 05/27/24 13:38 PT 14.80 SECONDS (12.1-14.9) 05/27/24 13:38 INR 1.13 (0.8-1.2) 05/27/24 13:38 Sodium 139 mmol/L (136-145) 05/27/24 13:38 Potassium 4.7 mmol/L (3.5-5.1) 05/27/24 13:38 Chloride 101 mmol/L (98-107) 05/27/24 13:38 Carbon Dioxide 24 mmol/L (22-29) 05/27/24 13:38 Anion Gap 18.7 (5-19) 05/27/24 13:38 BUN 23 mg/dL (8-23) 05/27/24 13:38 Creatinine 1.4 mg/dL (0.7-1.2) H 05/27/24 13:38 GFR Calculation Not Reportable 05/27/24 13:38 Glucose 173 mg/dL (65-115) H 05/27/24 13:38 POC Glucose 146 mg/dL (70-110) H 05/27/24 13:38 Calculated Osmolality 296 mOsm/kg (285-295) H 05/27/24 13:38 Calcium 9.9 mg/dL (8.5-10.5) 05/27/24 13:38 Magnesium 2.4 mg/dL (1.7-2.3) H 05/27/24 13:38 Total Bilirubin 0.3 mg/dL (0.15-1.2) 05/27/24 13:38 AST 9 U/L (0-40) 05/27/24 13:38 ALT < 5 U/L (0-41) 05/27/24 13:38 Alkaline Phosphatase 87 U/L (40-130) 05/27/24 13:38 Total Protein 8.7 g/dL (6.6-8.7) 05/27/24 13:38 Albumin 4.2 g/dL (3.5-5.2) 05/27/24 13:38 Globulin 4.5 g/dL (1.3-4.6) 05/27/24 13:38 Urine Color Yellow (Yellow) 05/27/24 13:54 Urine Appearance Clear (CLEAR) 05/27/24 13:54 Urine pH 5 (5-7) 05/27/24 13:54 Ur Specific [place] 1.015 (1.005-1.030) 05/27/24 13:54 Urine Protein Neg (Negative) 05/27/24 13:54 Urine Glucose (UA) 4+ (Normal) H 05/27/24 13:54 Urine Ketones Negative (Negative) 05/27/24 13:54 Urine Blood Trace (Negative) H 05/27/24 13:54 Urine Nitrate Negative (Negative) 05/27/24 13:54 Urine Bilirubin Neg (Negative) 05/27/24 13:54 Urine Urobilinogen Norm mg/dL (Negative) 05/27/24 13:54 Ur Leukocyte Esterase Negative (Negative) 05/27/24 13:54 Urine RBC Rare /hpf (0-2) 05/27/24 13:54 Urine WBC None /hpf (0-5) 05/27/24 13:54 Ur Squamous Epith Cells None /hpf (0-5) 05/27/24 13:54 Amorphous Sediment Not Reportable 05/27/24 13:54 Urine Bacteria Trace /hpf (NONE) 05/27/24 13:54 Discharge Plan Discharge Patient Disposition: Xfer Short-Term Hosp Clinical Impression: Lung mass, Metastasis to brain, Left-sided weakness Condition: Stable Referrals: Ml Herrmann MD [Primary Care Provider] - Coding Level of Care Code ED Documentation Coordinator for Grace Frankel
[2024-05-28] MEDS: oxyCODONE-APAP 5-325 mg Tablet 1 TAB PO (02:14)
--- NOTE | 2024-05-28 07:08 | PC.PHAR ---
PT IS [facility] FAX AT 8AM 05/28/24
--- NOTE | 2024-05-28 12:38 | PC.NURSE ---
pt given lunch tray. pt breakfast tray removed from room with approximately 50% ate. pt denies pain at this time.
--- NOTE | 2024-05-28 14:15 | PC.NURSE ---
Pt ate approximately 25% of lunch and drank 1 milk carton. Pt has also ate some [place] and soda brought in from family.
--- NOTE | 2024-05-28 17:14 | PC.NURSE ---
pt report called to [facility] to Paris Keith RN at 1700.
== END 2024-05-28 19:27 | disposition short-term general hospital (02) ==
PROVIDERS: Emergency Provider Emergency Medicine; PCP Family Medicine
DX: R53.1 Weakness (principal); R91.8 Other nonspecific abnormal finding of lung field; C79.31 Secondary malignant neoplasm of brain; Z85.528 Personal history of other malignant neoplasm of kidney; E11.22 Type 2 diabetes mellitus with diabetic chronic kidney disease; I12.9 Hypertensive chronic kidney disease with stage 1 through stage 4 chronic kidney disease, or unspecified chronic kidney disease; N18.9 Chronic kidney disease, unspecified; G35 Multiple sclerosis; I25.10 Atherosclerotic heart disease of native coronary artery without angina pectoris; E78.5 Hyperlipidemia, unspecified
CPT/HCPCS: 36416; 70450; 71045; 71250; 80053; 81001; 82962; 83735; 85025; 85610; 93005; 96374; 99285; J1100

== ENCOUNTER 2024-06-09 11:47 | Emergency (ER) | payer OTHER, MEDICARE, SELFPAY ==
[2024-06-09 11:49] VITALS: BP 106/54; PULSE 65; RESP 18; TEMP 36.4; O2SAT 96
--- NOTE | 2024-06-09 12:07 | ED_ITS ---
HPI - Weakness 2 General: Chief complaint: Weakness Stated complaint: WEAKNESS Time Seen by Provider: 06/09/24 11:54 History of Present Illness: This patient is a 78-year-old presenting with generalized weakness stating that my blood pressure dropped . He noted this when he first got up this morning. He felt lightheaded and dizzy. He checked his blood pressure and it was low. He says this is not the first time he has had something like this happen. He was recently taken off all of his blood pressure medications due to low blood pressures. This was done during a recent admission at [facility]. He had presented to this hospital at the end of April with left-sided weakness and was discovered to have cancer with brain mets. He was transferred to [facility] and is now waiting to be established with the oncology service here in [place]. The plan is for radiation for his brain mets and he is not sure what their plan is with his lung tumor. He was given steroids while at [facility] and that has improved his neuro function. He is able to ambulate and use his left side again although it is still weaker than the right. He denies fevers or chills. He has had some vomiting which he associates with stretching of his esophagus . He says that he was told his esophagus was 3 inches across and the food does not pass through. He was able to eat some scrambled eggs this morning but has not had anything to drink. He is not sure how much of what he eats actually gets into his stomach versus gets thrown up. That also is not a new problem but is worsening. He does not recall anyone ever suggesting that he has aspiration issues. [facility] ED 2 PFS: Medical History Chronic kidney disease BPH (benign prostatic hyperplasia) Diabetes mellitus Multiple sclerosis Renal cancer CAD (coronary artery disease) HLD (hyperlipidemia) HTN (hypertension) Surgical History History of nephrectomy History of coronary artery stent placement Family History Mother , at age 81 Acute leukemia Father , at age 76 Tooth abscess Brother , in his 70 Cancer Colon Cancer Brother , 2nd brother in 70s Cancer colon cancer Brother Bladder cancer Social History Smoking and tobacco/nicotine status: never used tobacco/nicotine Alcohol intake: never Household members: spouse Marital status: Current occupational status: retired Physical Exam 2 Const: COMMON NORMALS: no acute distress and no limitations GENERAL APPEARANCE: cooperative and comfortable HENMT: HEAD & SCALP: normal to inspection FACE & SINUS: normal facial exam Eye: GENERAL EYE: appearance normal, both eyes and all related structures Neck/C-Spine: COMMON NORMALS: supple and no JVD Chest: COMMONS NORMALS: normal inspection of the chest Resp: COMMON NORMALS: normal respiratory effort and No use of accessory muscles AUSCULTATION: rhonchi (Mild, scattered) and wheezes (Scattered, greatest in the right upper posterior) Cardio: COMMON NORMALS: no JVD, regular rate, regular rhythm and No murmurs present (Cardio) RATE: regular rate RHYTHM: regular rhythm GI: COMMON NORMALS: Normal to inspection, nondistended, normoactive bowel sounds present, Soft to palpation and non-tender INSPECTION: Yes normal to inspection AUSCULTATION: Yes normoactive bowel sounds PALPATION: Yes Soft to palpation Back/Pelvis: COMMON NORMALS: thoracic and lumbar spine normal to inspection Extremity: COMMON NORMALS: normal to inspection Neuro: OTHER: Awake, alert, oriented. Speech is slightly slurred. Weakness on the left side. Psych: COMMON NORMALS: mental status grossly normal, cooperative and normal affect Skin: COMMON NORMALS: no rashes or lesions noted and turgor normal GENERAL SKIN EXAM: no rashes or lesions noted and turgor normal Course 2 Vital Signs: Vital signs: Vital Signs Temperature 97.5 F L 06/09/24 11:49 Pulse Rate 65 06/09/24 13:25 Respiratory Rate 18 06/09/24 11:49 Blood Pressure 124/57 06/09/24 13:25 Pulse Oximetry 96 06/09/24 13:25 Oxygen Delivery Me thod Room Air 06/09/24 11:49 MDM - Weakness Medical Decision Making Patient with recent diagnosis of cancer and brain mets. He was treated at [facility] with steroids and has had improvement of his neurologic condition. He is here today due to feeling very weak and dizzy. He is concerned about low blood pressures. He also has a problem with his esophagus motility causing him to not be able to take in much. He has had vomiting over the last few days. He was able to keep down some scrambled eggs and a little bit of water this morning. He said that he is going to be getting treatment with Botox for his esophageal issues. It is not currently scheduled. He is trying to get an appointment with his primary care at the [facility] so that this can be arranged. Labs today reflect significant dehydration. He was given IV fluids and felt significantly better. He was able to sit up with no dizziness. He was able to tolerate some sips of fluid. He and his felt comfortable with him going home. He will continue to take sips of fluid and eat soft foods such as scrambled eggs or mashed potatoes. He will contact his primary care and his specialists at [facility] tomorrow to try to facilitate his follow-up. He understands return precautions. Lab Data 06/09/24 12:33 06/09/24 12:33 Laboratory Results WBC 13.27 10^3/uL (3.29-11.43) H 06/09/24 12:33 RBC 5.07 10^6/uL (3.85-5.65) 06/09/24 12:33 Hgb 13.20 g/dL (11.27-16.99) 06/09/24 12:33 Hct 42.6 % (37-53) 06/09/24 12:33 MCV 84.0 fl (82-101) 06/09/24 12:33 MCH 26.0 pg (27-33) L 06/09/24 12:33 MCHC 31.0 g/dL (30-55) 06/09/24 12:33 RDW 15.3 % (12.1-15.1) H 06/09/24 12:33 Plt Count 268 10^3/cmm (157-399) 06/09/24 12:33 MPV 9.4 fL (7.4-10.4) 06/09/24 12:33 Neut % (Auto) 86.5 % 06/09/24 12:33 Lymph % (Auto) 6.0 % 06/09/24 12:33 Letcher % (Auto) 6.5 % 06/09/24 12:33 Eos % (Auto) 0.0 % 06/09/24 12:33 Baso % (Auto) 0.2 % 06/09/24 12:33 Neut # (Auto) 11.48 10^3/uL (1.8-7.7) H 06/09/24 12:33 Lymph # (Auto) 0.8 10^3/uL (0.8-4.8) 06/09/24 12:33 Letcher # (Auto) 0.9 10^3/uL (0.2-0.9) 06/09/24 12:33 Eos # (Auto) 0.0 10^3/uL (0.0-0.8) 06/09/24 12:33 Baso # (Auto) 0.0 10^3/uL (0.0-0.1) 06/09/24 12:33 Nucleated RBC % (auto) 0 % 06/09/24 12:33 Nucleated RBCs # 0.0 /100WBC 06/09/24 12:33 Sodium 135 mmol/L (136-145) L 06/09/24 12:33 Potassium 4.9 mmol/L (3.5-5.1) 06/09/24 12:33 Chloride 100 mmol/L (98-107) 06/09/24 12:33 Carbon Dioxide 19 mmol/L (22-29) L 06/09/24 12:33 Anion Gap 20.9 (5-19) H 06/09/24 12:33 BUN 41 mg/dL (8-23) H 06/09/24 12:33 Creatinine 1.4 mg/dL (0.7-1.2) H 06/09/24 12:33 GFR Calculation Not Reportable 06/09/24 12:33 Glucose 181 mg/dL (65-115) H 06/09/24 12:33 Calculated Osmolality 295 mOsm/kg (285-295) 06/09/24 12:33 Calcium 8.7 mg/dL (8.5-10.5) 06/09/24 12:33 Magnesium 2.3 mg/dL (1.7-2.3) 06/09/24 12:33 Total Bilirubin 0.4 mg/dL (0.15-1.2) 06/09/24 12:33 AST 7 U/L (0-40) 06/09/24 12:33 ALT < 5 U/L (0-41) 06/09/24 12:33 Alkaline Phosphatase 68 U/L (40-130) 06/09/24 12:33 Total Protein 7.0 g/dL (6.6-8.7) 06/09/24 12:33 Albumin 3.0 g/dL (3.5-5.2) L 06/09/24 12:33 Globulin 4.0 g/dL (1.3-4.6) 06/09/24 12:33 TSH 0.29 uIU/mL (0.27-4.20) 06/09/24 12:33 Urine Color Yellow (Yellow) 06/09/24 15:38 Urine Appearance Clear (CLEAR) 06/09/24 15:38 Urine pH 5.0 (5-7) 06/09/24 15:38 Ur Specific Huggins 1.026 (1.005-1.030) 06/09/24 15:38 Urine Protein Negative (Negative) 06/09/24 15:38 Urine Glucose (UA) 3+ (Normal) H 06/09/24 15:38 Urine Ketones 1+ (Negative) H 06/09/24 15:38 Urine Blood Negative (Negative) 06/09/24 15:38 Urine Nitrate Negative (Negative) 06/09/24 15:38 Urine Bilirubin Negative (Negative) 06/09/24 15:38 Urine Urobilinogen 1.0 mg/dL (Negative) 06/09/24 15:38 Ur Leukocyte Esterase Negative (Negative) 06/09/24 15:38 Urine RBC 0-2 /hpf (0-2) 06/09/24 15:38 Urine WBC 0-5 /hpf (0-5) 06/09/24 15:38 Ur Squamous Epith Cells 0-5 /hpf (0-5) 06/09/24 15:38 Amorphous Sediment Not Reportable 06/09/24 15:38 Urine Bacteria None seen /hpf (NONE) 06/09/24 15:38 Hyaline Casts 2.46 /lpf 06/09/24 15:38 All radiology interpretation(s) finalized by discharge Discharge Plan Discharge Patient Disposition: Home Clinical Impression: Dehydration, Esophageal dysfunction, Hypotension Condition: Stable Prescriptions: No Action nortriptyline 75 mg capsule 75 mg PO BEDTIME amlodipine 2.5 mg tablet 2.5 mg PO DAILY lisinopril 40 mg tablet 20 mg PO DAILY cholecalciferol (vitamin D3) 25 mcg (1,000 unit) capsule 25 mcg PO DAILY hydrochlorothiazide 25 mg tablet 12.5 mg PO DAILY insulin glargine [Lantus U-100 Insulin] 100 unit/mL Solution See Rx Instructions .ROUTE .COMPLEX Rx Instructions: Inject 80 units subcutaneously in the morning and 15 units in the evening. hydrocodone-acetaminophen 5-325 mg Tablet See Rx Instructions .ROUTE .COMPLEX PRN (Reason: Pain) Rx Instructions: TAKE 1 TABLET BY MOUTH EVERY 4 TO 6 HOURS NEEDED FOR PAIN. MAX 2 TABLETS PER DAY. MUST LAST 30 DAYS. DO NOT EXCEED 4000 MG PER DAY OF ACETAMINOPHEN FROM ALL MEDS. glipizide 10 mg Tablet 10 mg PO TID pravastatin 80 mg Tablet 80 mg PO QPM tamsulosin 0.4 mg Capsule 0.4 mg PO QPM metoprolol tartrate 25 mg Tablet 12.5 mg PO BID omega-3 fatty acids 500 mg Capsule 1,000 mg PO BID metformin 500 mg Tablet 250 mg PO BID sildenafil 100 mg Tablet See Rx Instructions .ROUTE .COMPLEX Rx Instructions: Take 50 mg orally 1 hour prior to sexxual activity for ed. Limit 6 doses per 30 days. clobetasol 0.05 % Solution 1 applic TOPICAL BID Jardiance 25 mg Tablet 25 mg PO DAILY sitagliptin 50 mg Tablet 50 mg PO DAILY ketoconazole 2 % Shampoo See Rx Instructions .ROUTE .COMPLEX Rx Instructions: APPLY TO SCALP 2 TO 3 TIMES PER WEEK AND ALLOW TO SIT 5 MINUTES BEFORE RINSING. aspirin [Aspir-81] 81 mg Tablet,Delayed Release (Dr/Ec) 81 mg PO DAILY hydrocortisone 2.5 % Ointment See Rx Instructions .ROUTE .COMPLEX Rx Instructions: APPLY SPARINGLY TO AFFECTED AREA(S) ENOUGH TO COVER, TOPICALLY. MAY USE ON EARS. Discharge Orders: Discharge ED (Routine); Ordered 06/09/24 Ordered By: Breanne Hart Referrals: Ml Herrmann MD [Primary Care Provider] - Patient Instructions: Opioid Safety, Pain Management Activity Restrictions/Additional Instructions: Do your best to stay hydrated and eat soft foods. Follow up with your various specialists to continue outpatient treatments. Return to the ED if worse in any way. 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 Fwd Related Data Home Medications Medication Instructions Recorded Confirmed glipizide 10 mg tablet 10 mg PO TID 11/20/21 05/28/24 hydrocodone 5 mg-acetaminophen 325 See Rx Instructions .Route 11/20/21 05/28/24 mg tablet .COMPLEX PRN Pain insulin glargine 100 unit/mL See Rx Instructions .Route .COMPLEX 11/20/21 05/28/24 subcutaneous solution (Lantus U-100 Insulin) metoprolol tartrate 25 mg tablet 12.5 mg PO BID 11/20/21 05/28/24 omega-3 fatty acids 500 mg capsule 1,000 mg PO BID 11/20/21 05/28/24 pravastatin 80 mg tablet 80 mg PO QPM 11/20/21 05/28/24 tamsulosin 0.4 mg capsule 0.4 mg PO QPM 11/20/21 05/28/24 amlodipine 2.5 mg tablet 2.5 mg PO DAILY 05/20/22 05/28/24 cholecalciferol (vitamin D3) 25 25 mcg PO DAILY 05/20/22 05/28/24 mcg (1,000 unit) capsule hydrochlorothiazide 25 mg tablet 12.5 mg PO DAILY 05/20/22 05/28/24 lisinopril 40 mg tablet 20 mg PO DAILY 05/20/22 05/28/24 nortriptyline 75 mg capsule 75 mg PO BEDTIME 05/20/22 05/28/24 aspirin 81 mg tablet,delayed 81 mg PO DAILY 08/03/23 05/28/24 release hydrocortisone 2.5 % topical See Rx Instructions .Route .COMPLEX 08/03/23 05/28/24 ointment ketoconazole 2 % shampoo See Rx Instructions .Route .COMPLEX 08/03/23 05/28/24 clobetasol 0.05 % scalp solution 1 applic topical BID 05/28/24 05/28/24 empagliflozin 25 mg tablet 25 mg PO DAILY 05/28/24 05/28/24 (Jardiance) metformin 500 mg tablet 250 mg PO BID 05/28/24 05/28/24 sildenafil 100 mg tablet See Rx Instructions .Route .COMPLEX 05/28/24 05/28/24 sitagliptin 50 mg tablet 50 mg PO DAILY 05/28/24 05/28/24 Allergies Allergy/AdvReac Type Severity Reaction Status Date / Time Iodine and Iodide Containing Allergy Unresponsiv Verified 03/20/24 14:02 Produc e
[2024-06-09 12:23] VITALS: BP 102/47; PULSE 68; O2SAT 97
[2024-06-09 12:42] LABS: Basophils % 0.2 %; Hematocrit 42.6 % (37-53); Lymphocytes # 0.8 10^3/uL (0.8-4.8); Mean Platelet Volume 9.4 fL (7.4-10.4); Monocytes # 0.9 10^3/uL (0.2-0.9); Monocytes % 6.5 %; Neutrophils # 11.48 10^3/uL (1.8-7.7); Neutrophils % 86.5 %; Nucleated Red Blood Cells % 0 %; Platelet Count 268 10^3/cmm (157-399); Red Blood Count 5.07 10^6/uL (3.85-5.65); Red Cell Distribution Width 15.3 % (12.1-15.1); White Blood Count 13.27 10^3/uL (3.29-11.43)
[2024-06-09] MEDS: sodium chloride 0.9% 500 ML 999 ML IV (12:45)
--- NOTE | 2024-06-09 13:04 | ECG_ITS ---
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 Measurements Intervals [place] Rate: 61 P: 234 DC: 324 QRS: -36 QRSD: 137 T: 85 QT: 420 QTc: 424 Interpretive Statements BASELINE ARTIFACT. SUPRAVENTRICULAR RHYTHM LEFT AXIS DEVIATION [QRS AXIS < -30] INTRAVENTRICULAR CONDUCTION DELAY [130+ ms QRS DURATION] Electronically Signed On 06-09-2024 19:41:52 CDT by Oli Suggs M.D. [id number]
[2024-06-09 13:17] LABS: Alanine Aminotransferase < 5 U/L (0-41); Alkaline Phosphatase 68 U/L (40-130); Anion Gap 20.9 (5-19); Aspartate Amino Transferase 7 U/L (0-40); Blood Urea Nitrogen 41 mg/dL (8-23); Calcium 8.7 mg/dL (8.5-10.5); Carbon Dioxide 19 mmol/L (22-29); Chloride 100 mmol/L (98-107); Glucose 181 mg/dL (65-115); Magnesium 2.3 mg/dL (1.7-2.3); Osmolality Calculated 295 mOsm/kg (285-295); Potassium 4.9 mmol/L (3.5-5.1); Sodium 135 mmol/L (136-145); Thyroid Stimulating Hormone 0.29 uIU/mL (0.27-4.20); Total Bilirubin 0.4 mg/dL (0.15-1.2)
[2024-06-09 13:25] VITALS: BP 124/57; PULSE 65; O2SAT 96
[2024-06-09] MEDS: sodium chloride 0.9% 1,000 ML 999 ML IV (14:00)
[2024-06-09 15:42] LABS: Charge for UA Resulting for Rev
[2024-06-09 15:44] LABS: Bilirubin Urine Negative (Negative); Blood Urine Negative (Negative); Glucose Urine UA 3+ (Normal); Ketones Urine 1+ (Negative); Leukocyte Esterase Urine Negative (Negative); Nitrate Urine Negative (Negative); Protein Urine Negative (Negative); Specific Gravity, Urine 1.026 (1.005-1.030); Urine Appearance Clear (CLEAR); Urine Color Yellow (Yellow)
[2024-06-09 15:46] LABS: Bacteria Urine None Seen /hpf; Hyaline Casts Urine 2.46 /lpf; RBC Urine 0-2 /hpf (0-2); Squamous Epithelial Cell Urine 0-5 /hpf (0-5); WBC Urine 0-5 /hpf (0-5)
[2024-06-09 16:35] VITALS: BP 123/78; PULSE 68; O2SAT 94
== END 2024-06-09 16:36 | disposition home or self-care (01) ==
PROVIDERS: Emergency Provider Emergency Medicine; PCP Family Medicine
DX: E86.0 Dehydration (principal); I95.9 Hypotension, unspecified; K22.9 Disease of esophagus, unspecified; Z79.82 Long term (current) use of aspirin; Z79.84 Long term (current) use of oral hypoglycemic drugs; Z79.4 Long term (current) use of insulin; E11.22 Type 2 diabetes mellitus with diabetic chronic kidney disease; I12.9 Hypertensive chronic kidney disease with stage 1 through stage 4 chronic kidney disease, or unspecified chronic kidney disease; N18.9 Chronic kidney disease, unspecified; G35 Multiple sclerosis; I25.10 Atherosclerotic heart disease of native coronary artery without angina pectoris; E78.5 Hyperlipidemia, unspecified; Z85.53 Personal history of malignant neoplasm of renal pelvis; Z90.5 Acquired absence of kidney
CPT/HCPCS: 36415; 80053; 81003; 81015; 83735; 84443; 85025; 93005; 96360; 96361; 99284; J7030; J7040

== ENCOUNTER 2024-06-14 15:22 | Emergency (ER) | payer OTHER, MEDICARE, SELFPAY ==
[2024-06-14] VITALS (8 sets, daily range): BP systolic 94–142; BP diastolic 52–78; PULSE 65–73; RESP 13–24; TEMP 36.4; O2SAT 90–100; BMI 25.4
--- NOTE | 2024-06-14 16:49 | CTR_ITS ---
PROCEDURE INFORMATION: Exam: CT Neck With Contrast Exam date and time: 06/14/2024 5:26 PM Age: 78 years old Clinical indication: Dysphagia / difficulty swallowing; Patient HX: HX of brain and lung cancer, weight loss of 30lbs in 3-4 weeks. 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 Radiation optimization: All CT scans at this facility use at least one of these dose optimization techniques: automated exposure control; mA and/or kV adjustment per patient size (includes targeted exams where dose is matched to clinical indication); or iterative reconstruction. Contrast material: OMNIPAQUE 350; Contrast volume: 60 ml; Contrast route: INTRAVENOUS (IV); COMPARISON: CT chest con [id number] 05/27/2024 1:48 PM RADIATION DOSE METRICS: Total DLP (mGy-cm): 263.88 FINDINGS: Paranasal sinuses: Air-fluid levels in the right maxillary sinus which can be seen the setting of acute sinusitis. Salivary glands: Normal. Glands are normal in size. Pharynx: Unremarkable. No significant tonsillar enlargement. Prevertebral and retropharyngeal spaces: Unremarkable. Larynx: Unremarkable. Epiglottis is normal. Thyroid: Normal. No enlarged or calcified nodules. Trachea: Visualized trachea is unremarkable. Lungs: Unremarkable as visualized. Esophagus: The esophagus is markedly distended up to the level of the thoracic inlet. Lymph nodes: Unremarkable. No lymphadenopathy. Bones/joints: Multilevel severe degenerative disc disease in the mid to lower thoracic spine. Soft tissues: Unremarkable. No significant soft tissue swelling. CT/CT neck w con* [id number] IMPRESSION: 1. Air-fluid levels in the right maxillary sinus which can be seen the setting of acute sinusitis. 2. The esophagus is markedly distended up to the level of the thoracic inlet.
--- NOTE | 2024-06-14 16:51 | ED_ITS ---
HPI - Weakness 2 General: Chief complaint: Weakness Stated complaint: weakness, difficulty swallowing Time Seen by Provider: 06/14/24 15:44 History of Present Illness: 78-year-old male presents emergency depa rtment chief complaint of having issues with dysphagia and difficulty with swallowing he has a recent diagnosis of brain cancer with mets including that primary of the lung. She transferred out of her facility approxi-2 weeks ago to [facility] patient has since thus followed up with the [facility] administration yesterday she had upper endoscopy obtained due to concerns of esophageal stricture and esophageal dysmotility which there was recommended Botox in which there is currently waiting on referral for patient endorses since being discharged she has had not been to eat or drink anything which everything he eats or drinks comes straight back up in which he vomits patient can is concerned about malnutrition and which is also a concern about dehydration. Patient presents to the ER with his present for further assessment and management. Associated symptoms: Reports vomiting; Denies chest pain, chills, fever(s), headache(s) or nausea Review of Systems 2 General: Reports: 10 or more systems reviewed and unremarkable except in HPI and below Const: Reports: fatigue and malaise; Denies: fever(s) or chills Eyes: Denies: change in vision or blurry vision Card: Denies: chest pain or palpitations Resp: Denies: dyspnea or productive cough GI: Reports: vomiting and dysphagia; Denies: abdominal pain or nausea : Denies: flank pain Musc: Denies: extremity pain or extremity swelling Skin/Breast: Denies: rash or pruritus Neuro: Denies: headache(s) Psych: Denies: anxiety or depression Luigi/Lymph: Denies: easy bleeding All/Imm: Denies: urticaria, throat swelling or facial swelling PFSH ED 2 PFSH: Medical History Chronic kidney disease BPH (benign prostatic hyperplasia) Diabetes mellitus Multiple sclerosis Renal cancer CAD (coronary artery disease) HLD (hyperlipidemia) HTN (hypertension) Surgical History History of nephrectomy History of coronary artery stent placement Family History Mother , at age 81 Acute leukemia Father , at age 76 Tooth abscess Brother , in his 70 Cancer Colon Cancer Brother , 2nd brother in 70s Cancer colon cancer Brother Bladder cancer Social History Smoking and tobacco/nicotine status: never used tobacco/nicotine Alcohol intake: never Household members: spouse Marital status: Current occupational status: retired Physical Exam 2 Const: COMMON NORMALS: patient oriented x3 and healthy appearing; apparent distress (Flat affect appreciated dry mucous membranes appreciated including in the t) and negative for alert (Muffled voice appreciated no stridor apparent.) HENMT: COMMON NORMALS: normocephalic and atraumatic HEAD & SCALP: n ormocephalic and atraumatic Eye: COMMON NORMALS: Equal, round and reactive pupils present and EOMs intact bilaterally PUPIL: Yes Equal, round and reactive pupils present Neck/C-Spine: COMMON NORMALS: full ROM, supple and no JVD Lymph: LYMPHATIC: no lymphadenopathy noted Chest: COMMONS NORMALS: normal inspection of the chest and normal palpation of entire chest wall Resp: COMMON NORMALS: normal respiratory effort, No retractions and clear to auscultation bilaterally EFFORT & INSPECTION: Yes able to speak in complete sentences and Yes symmetric chest movement AUSCULTATION: clear to auscultation bilaterally Cardio: COMMON NORMALS: no JVD, regular rate and regular rhythm RATE: r egular rate RHYTHM: regular rhythm GI: COMMON NORMALS: Normal to inspection, nondistended, normoactive bowel sounds present, Soft to palpation and non-tender INSPECTION: Yes normal to inspection PALPATION: Yes Soft to palpation : COMMON NORMALS: Yes no CVA tenderness BLADDER/KIDNEY EXAM: Yes no CVA tenderness Back/Pelvis: COMMON NORMALS: no CVA tenderness Extremity: COMMON NORMALS: normal to inspection and full ROM Neuro: COMMON NORMALS: patient oriented x3, CN's II-XII intact bilaterally, moves all extremities and no focal motor deficits SENSORIUM/ORIENTATION: No alert (Muffled voice appreciated no stridor apparent.) Psych: COMMON NORMALS: mental status grossly normal, Normal thought process present, cooperative and normal affect THOUGHT PROCESS: Normal thought process present Skin: COMMON NORMALS: no rashes or lesions noted GENERAL SKIN EXAM: no rashes or lesions noted Course 2 Vital Signs: Vital signs: Vital Signs Temperature 97.6 F 06/14/24 15:24 Pulse Rate 67 06/14/24 19:30 Respiratory Rate 13 06/14/24 19:30 Blood Pressure 139/63 06/14/24 19:30 Pulse Oximetry 98 06/14/24 19:30 Oxygen Delivery Me thod Room Air 06/14/24 19:30 Oxygen Flow Rate 2 06/14/24 17:17 MDM - Weakness Medical Decision Making Due to patient's symptoms and condition IV status IV fluids provided for hydration with lab work imaging obtained. Concerns of severe dehydration or renal impairment is prominent will continue to follow-up IV fluids were provided as well as IV Decadron. Will continue to follow. CT imaging of the soft tissue neck due to patient's esophageal issues will be obtained. Patient upon reassessment is doing better patient is tolerated p.o. intake with minimal difficulty just CT imaging of the soft tissue neck reveals some mild inflammation but no obvious acute process was otherwise noted was a mild esophageal dilation and offered the patient to be kept in overnight for oral fluids and IV fluids patient is declined he does have mild renal impairment with a creatinine of 2.0 the patient is elected to be discharged home and will be continued him on the Decadron that he is breathing ran out of advise any further follow-up with his doctor on Monday or Monday for further eval and which instructed for him to return the interim if any of his symptoms persist or worse.. Lab Data 06/14/24 16:00 06/14/24 16:[address] 06/14/24 16:49 IMPRESSION: 1. Air-fluid levels in the right maxillary sinus which can be seen the setting of acute sinusitis. 2. The esophagus is markedly distended up to the level of the thoracic inlet. Laboratory Results WBC 14.24 10^3/uL (3.29-11.43) H 06/14/24 16:00 RBC 5.36 10^6/uL (3.85-5.65) 06/14/24 16:00 Hgb 13.70 g/dL (11.27-16.99) 06/14/24 16:00 Hct 43.8 % (37-53) 06/14/24 16:00 MCV 81.7 fl (82-101) L 06/14/24 16:00 MCH 25.6 pg (27-33) L 06/14/24 16:00 MCHC 31.3 g/dL (30-55) 06/14/24 16:00 RDW 15.7 % (12.1-15.1) H 06/14/24 16:00 Plt Count 314 10^3/cmm (157-399) 06/14/24 16:00 MPV 10.3 fL (7.4-10.4) 06/14/24 16:00 Neut % (Auto) 79.5 % 06/14/24 16:00 Lymph % (Auto) 13.3 % 06/14/24 16:00 [place] % (Auto) 6.5 % 06/14/24 16:00 Eos % (Auto) 0.3 % 06/14/24 16:00 Baso % (Auto) 0.1 % 06/14/24 16:00 Neut # (Auto) 11.31 10^3/uL (1.8-7.7) H 06/14/24 16:00 Lymph # (Auto) 1.9 10^3/uL (0.8-4.8) 06/14/24 16:00 [place] # (Auto) 0.9 10^3/uL (0.2-0.9) 06/14/24 16:00 Eos # (Auto) 0.0 10^3/uL (0.0-0.8) 06/14/24 16:00 Baso # (Auto) 0.0 10^3/uL (0.0-0.1) 06/14/24 16:00 Nucleated RBC % (auto) 0 % 06/14/24 16:00 Nucleated RBCs # 0.0 /100WBC 06/14/24 16:00 Sodium 136 mmol/L (136-145) 06/14/24 16:00 Potassium 5.0 mmol/L (3.5-5.1) 06/14/24 16:00 Chloride 102 mmol/L (98-107) 06/14/24 16:00 Carbon Dioxide 17 mmol/L (22-29) L 06/14/24 16:00 Anion Gap 22.0 (5-19) H 06/14/24 16:00 BUN 77 mg/dL (8-23) H 06/14/24 16:00 Creatinine 2.0 mg/dL (0.7-1.2) H 06/14/24 16:00 GFR Calculation Not Reportable 06/14/24 16:00 Glucose 166 mg/dL (65-115) H 06/14/24 16:00 Calculated Osmolality 309 mOsm/kg (285-295) H 06/14/24 16:00 Lactic Acid 2.1 mmol/L (0.5-2.2) 06/14/24 16:00 Calcium 9.1 mg/dL (8.5-10.5) 06/14/24 16:00 Total Bilirubin 0.4 mg/dL (0.15-1.2) 06/14/24 16:00 AST 7 U/L (0-40) 06/14/24 16:00 ALT < 5 U/L (0-41) 06/14/24 16:00 Alkaline Phosphatase 72 U/L (40-130) 06/14/24 16:00 C-Reactive Protein 49.5 mg/L (0.0-4.9) H 06/14/24 16:00 Total Protein 7.1 g/dL (6.6-8.7) 06/14/24 16:00 Albumin 2.8 g/dL (3.5-5.2) L 06/14/24 16:00 Globulin 4.3 g/dL (1.3-4.6) 06/14/24 16:00 All radiology interpretation(s) finalized by discharge Discharge Plan Discharge Patient Disposition: Home Clinical Impression: Esophagitis, Acute renal impairment, Dehydration Condition: Stable Prescriptions: New dexamethasone 1.5 mg tablet 3 mg PO Q6H Qty: 20 0RF No Action nortriptyline 75 mg capsule 75 mg PO BEDTIME amlodipine 2.5 mg tablet 2.5 mg PO DAILY lisinopril 40 mg tablet 20 mg PO DAILY cholecalciferol (vitamin D3) 25 mcg (1,000 unit) capsule 25 mcg PO DAILY hydrochlorothiazide 25 mg tablet 12.5 mg PO DAILY insulin glargine [Lantus U-100 Insulin] 100 unit/mL Solution See Rx Instructions .ROUTE .COMPLEX Rx Instructions: Inject 80 units subcutaneously in the morning and 15 units in the evening. hydrocodone-acetaminophen 5-325 mg Tablet See Rx Instructions .ROUTE .COMPLEX PRN (Reason: Pain) Rx Instructions: TAKE 1 TABLET BY MOUTH EVERY 4 TO 6 HOURS NEEDED FOR PAIN. MAX 2 TABLETS PER DAY. MUST LAST 30 DAYS. DO NOT EXCEED 4000 MG PER DAY OF ACETAMINOPHEN FROM ALL MEDS. glipizide 10 mg Tablet 10 mg PO TID pravastatin 80 mg Tablet 80 mg PO QPM tamsulosin 0.4 mg Capsule 0.4 mg PO QPM metoprolol tartrate 25 mg Tablet 12.5 mg PO BID omega-3 fatty acids 500 mg Capsule 1,000 mg PO BID metformin 500 mg Tablet 250 mg PO BID sildenafil 100 mg Tablet See Rx Instructions .ROUTE .COMPLEX Rx Instructions: Take 50 mg orally 1 hour prior to sexxual activity for ed. Limit 6 doses per 30 days. clobetasol 0.05 % Solution 1 applic TOPICAL BID Jardiance 25 mg Tablet 25 mg PO DAILY sitagliptin 50 mg Tablet 50 mg PO DAILY ketoconazole 2 % Shampoo See Rx Instructions .ROUTE .COMPLEX Rx Instructions: APPLY TO SCALP 2 TO 3 TIMES PER WEEK AND ALLOW TO SIT 5 MINUTES BEFORE RINSING. aspirin [Aspir-81] 81 mg Tablet,Delayed Release (Dr/Ec) 81 mg PO DAILY hydrocortisone 2.5 % Ointment See Rx Instructions .ROUTE .COMPLEX Rx Instructions: APPLY SPARINGLY TO AFFECTED AREA(S) ENOUGH TO COVER, TOPICALLY. MAY USE ON EARS. Discharge Orders: Discharge ED (Routine); Ordered 06/14/24 Ordered By: Brian Harmon Referrals: Ml Herrmann MD [Primary Care Provider] - 1-3 days Discharge Diet: Advance as tolerated Discharge Activity: Increase activity as tolerated Patient Instructions: Dehydration (ED), Diet for Stomach Ulcers and Gastritis (ED), Esophagitis (ED) Activity Restrictions/Additional Instructions: Please further follow-up with your doctor on Monday for further eval, please take medications as prescribed please drink liquids throughout the day as well as boost and Ensure to provide you appropriate nourishment nutrition and appropriate protein please further contact your doctor on Monday for further eval in which to return the interim if any of your symptoms persist or worse. 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 [employer] Fwd Related Data Home Medications Medication Instructions Recorded Confirmed glipizide 10 mg tablet 10 mg PO TID 11/20/21 05/28/24 hydrocodone 5 mg-acetaminophen 325 See Rx Instructions .Route 11/20/21 05/28/24 mg tablet .COMPLEX PRN Pain insulin glargine 100 unit/mL See Rx Instructions .Route .COMPLEX 11/20/21 05/28/24 subcutaneous solution (Lantus U-100 Insulin) metoprolol tartrate 25 mg tablet 12.5 mg PO BID 11/20/21 05/28/24 omega-3 fatty acids 500 mg capsule 1,000 mg PO BID 11/20/21 05/28/24 pravastatin 80 mg tablet 80 mg PO QPM 11/20/21 05/28/24 tamsulosin 0.4 mg capsule 0.4 mg PO QPM 11/20/21 05/28/24 amlodipine 2.5 mg tablet 2.5 mg PO DAILY 05/20/22 05/28/24 cholecalciferol (vitamin D3) 25 25 mcg PO DAILY 05/20/22 05/28/24 mcg (1,000 unit) capsule hydrochlorothiazide 25 mg tablet 12.5 mg PO DAILY 05/20/22 05/28/24 lisinopril 40 mg tablet 20 mg PO DAILY 05/20/22 05/28/24 nortriptyline 75 mg capsule 75 mg PO BEDTIME 05/20/22 05/28/24 aspirin 81 mg tablet,delayed 81 mg PO DAILY 08/03/23 05/28/24 release hydrocortisone 2.5 % topical See Rx Instructions .Route .COMPLEX 08/03/23 05/28/24 ointment ketoconazole 2 % shampoo See Rx Instructions .Route .COMPLEX 08/03/23 05/28/24 clobetasol 0.05 % scalp solution 1 applic topical BID 05/28/24 05/28/24 empagliflozin 25 mg tablet 25 mg PO DAILY 05/28/24 05/28/24 (Jardiance) metformin 500 mg tablet 250 mg PO BID 05/28/24 05/28/24 sildenafil 100 mg tablet See Rx Instructions .Route .COMPLEX 05/28/24 05/28/24 sitagliptin 50 mg tablet 50 mg PO DAILY 05/28/24 05/28/24 Previous Rx's Medication Instructions Recorded dexamethasone 1.5 mg tablet 3 mg (2 x 1.5 mg) PO Q6H #20 tabs 06/14/24 Allergies Allergy/AdvReac Type Severity Reaction Status Date / Time Iodine and Iodide Containing Allergy Unresponsiv Verified 06/14/24 15:40 Produc e
[2024-06-14 16:59] LABS: Basophils % 0.1 %; Eosinophils % 0.3 %; Hematocrit 43.8 % (37-53); Lymphocytes # 1.9 10^3/uL (0.8-4.8); Lymphocytes % 13.3 %; Mean Corpuscular HGB Conc 31.3 g/dL (30-55); Mean Corpuscular Hemoglobin 25.6 pg (27-33); Mean Corpuscular Volume 81.7 fl (82-101); Mean Platelet Volume 10.3 fL (7.4-10.4); Monocytes # 0.9 10^3/uL (0.2-0.9); Monocytes % 6.5 %; Neutrophils # 11.31 10^3/uL (1.8-7.7); Neutrophils % 79.5 %; Nucleated Red Blood Cells % 0 %; Platelet Count 314 10^3/cmm (157-399); Red Blood Count 5.36 10^6/uL (3.85-5.65); Red Cell Distribution Width 15.7 % (12.1-15.1); White Blood Count 14.24 10^3/uL (3.29-11.43)
[2024-06-14] MEDS: methylPREDNISolone sod succ 125 mg/2 mL INJ IVP (17:09)
[2024-06-14] MEDS: diphenhydrAMINE 50 mg/mL SDV 1mL 25 MG IVP (17:12)
[2024-06-14 17:13] LABS: Alanine Aminotransferase < 5 U/L (0-41); Albumin Level 2.8 g/dL (3.5-5.2); Alkaline Phosphatase 72 U/L (40-130); Aspartate Amino Transferase 7 U/L (0-40); Blood Urea Nitrogen 77 mg/dL (8-23); C Reactive Protein 49.5 mg/L (0.0-4.9); Calcium 9.1 mg/dL (8.5-10.5); Carbon Dioxide 17 mmol/L (22-29); Chloride 102 mmol/L (98-107); Creatinine Clr Calc Pharmacy 32.7232; Globulin 4.3 g/dL (1.3-4.6); Glucose 166 mg/dL (65-115); Osmolality Calculated 309 mOsm/kg (285-295); Sodium 136 mmol/L (136-145); Total Bilirubin 0.4 mg/dL (0.15-1.2); Total Protein 7.1 g/dL (6.6-8.7)
[2024-06-14] MEDS: dexamethasone 10 mg/mL INJ IVP (17:13)
[2024-06-14] MEDS: ondansetron 2 mg/ML SDV 2 mL 4 MG IVP (17:15)
[2024-06-14] MEDS: sodium chloride 0.9% 1,000 ML 999 ML IV ×3 (17:16→20:52)
[2024-06-14 17:52] LABS: Lactic Sepsis W/Reflex 2.1 mmol/L (0.5-2.2)
[2024-06-14 19:27] LABS: Reflex Lactate Order REFLEX LACTIC ORDERD
[2024-06-14] MEDS: fentaNYL 50 mcg/mL INJ 2mL IVP (19:27)
[2024-06-14 21:17] LABS: Lactic Acid level (Lactate) 1.2 mmol/L (0.5-2.2)
== END 2024-06-14 21:35 | disposition home or self-care (01) ==
PROVIDERS: Emergency Provider Emergency Medicine; PCP Family Medicine
DX: K20.90 Esophagitis, unspecified without bleeding (principal); E86.0 Dehydration; Z79.82 Long term (current) use of aspirin; Z79.84 Long term (current) use of oral hypoglycemic drugs; Z79.4 Long term (current) use of insulin; E11.22 Type 2 diabetes mellitus with diabetic chronic kidney disease; I12.9 Hypertensive chronic kidney disease with stage 1 through stage 4 chronic kidney disease, or unspecified chronic kidney disease; N18.9 Chronic kidney disease, unspecified; G35 Multiple sclerosis; Z85.528 Personal history of other malignant neoplasm of kidney; I25.10 Atherosclerotic heart disease of native coronary artery without angina pectoris; E78.5 Hyperlipidemia, unspecified
CPT/HCPCS: 36415; 70491; 80053; 83605; 85025; 86140; 96361; 96374; 96375; 99285; J1100; J1200; J2405; J2919; J3010; J7030

== ENCOUNTER 2024-06-18 14:47 | Inpatient (IN) | payer OTHER, MEDICARE, SELFPAY ==
[2024-06-18 14:52] VITALS: BP 91/56; PULSE 93; RESP 18; TEMP 36.7; O2SAT 98; BMI 23.0
--- NOTE | 2024-06-18 15:18 | ED_ITS ---
HPI - Weakness 2 General: Chief complaint: Weakness Stated complaint: [facility] Time Seen by Provider: 06/18/24 15:06 Source: patient and family () Mode of arrival: wheelchair Limitations: no limitations History of Present Illness: Patient is a 78-year-old male with a known history of lung malignancy with metastasis to his brain here along with his for evaluation of continued weakness. states they were seen here in the emergency department on 05/27 where the malignancy was found. She states they were subsequently transferred to [facility]. They state they underwent PET scan there with no further malignancies found apart from lung and brain. They do have an appointment with [facility] oncology on Monday. Patient states over the past several weeks he has been having trouble swallowing. He did undergo endoscopy while at [facility] as well. states that his esophagus is significantly dilated with distal stricture. They do have an appointment with GI for esophageal dilatation but states this appointment is not until August 05. Patient has been offered feeding tube in the past has declined. He is agreeable to this now. He states he has not been able to swallow any type of solid food over the past 2 weeks. He states he can barely hold down water. States he feels generally weak. Vitals stable upon arrival apart from hypotension with BP 91/56. PMH significant for previous renal cell carcinoma with nephrectomy, MS, CAD with 3 previous cardiac stents, chronic back pain with pain stimulator, HTN. Complaint: generalized weakness Onset (ago): week(s) Duration: constant Location: generalized Migration: none Severity: severe Relieving factors: none Exacerbating factors: other (not eating/drinking) Associated symptoms: Reports no associated symptoms and vomiting; Denies chest pain, chills, confusion, fever(s) or headache(s) Review of Systems 2 Const: Reports: fatigue; Denies: fever(s), chills or body aches Eyes: Denies: change in vision ENMT: Reports: other (trouble swallowing) Card: Denies: chest pain Resp: Denies: dyspnea GI: Reports: vomiting; Denies: abdominal pain or diarrhea Skin/Breast: Denies: rash Neuro: Reports: difficulty walking and dizziness; Denies: headache(s), confusion, behavioral changes, Slurred speech present, difficulty communicating thoughts or seizure-like activity PFS ED 2 PFSH: Medical History Chronic kidney disease BPH (benign prostatic hyperplasia) Diabetes mellitus Multiple sclerosis Renal cancer CAD (coronary artery disease) HLD (hyperlipidemia) HTN (hypertension) Surgical History History of nephrectomy History of coronary artery stent placement Family History Mother , at age 81 Acute leukemia Father , at age 76 Tooth abscess Brother , in his 70 Cancer Colon Cancer Brother , 2nd brother in 70s Cancer colon cancer Brother Bladder cancer Social History Smoking and tobacco/nicotine status: never used tobacco/nicotine Alcohol intake: never Household members: spouse Marital status: Current occupational status: retired Physical Exam 2 Const: COMMON NORMALS: no acute distress, patient oriented x3 and alert G ENERAL APPEARANCE: cooperative NUTRITIONAL APPEARANCE: thin O RIENTATION/CONSCIOUSNESS: Yes awake, Yes oriented to person and Yes oriented to place HENMT: COMMON NORMALS: normocephalic and atraumatic HEAD & SCALP: normal to inspection, normocephalic and atraumatic FACE & SINUS: normal facial exam Eye: GENERAL EYE: appearance normal, both eyes and all related structures Resp: COMMON NORMALS: normal respiratory effort Cardio: COMMON NORMALS: regular rate and regular rhythm RATE: regular rate RHYTHM: regular rhythm GI: COMMON NORMALS: Normal to inspection, nondistended, normoactive bowel sounds present, Soft to palpation and non-tender PALPATION: Yes Soft to palpation Extremity: GENERAL: Yes normal exam except as noted Neuro: MAGGY COMA SCALE: document GCS findings Maggy coma scale eye opening: Spontaneous Maggy coma scale verbal response: Orientated [place] coma scale motor response: Obey commands [place] coma scale total score: 15 COMMON NORMALS: patient oriented x3, moves all extremities, no focal motor deficits and no sensory deficits noted SENSORIUM/ORIENTATION: Yes alert, Yes oriented to person and Yes oriented to place GAIT: Yes Unable to assess gait Skin: COMMON NORMALS: no rashes or lesions noted GENERAL SKIN EXAM: no rashes or lesions noted Course 2 Consultations: Consultation #1: Dr. Toledo-accepts hospitalization Consultation #2: Dr. Hastings-recommends clear liquids until midnight then NPO, hold aspirin, can do feeding tube in the morning if indicated Vital Signs: Vital signs: Vital Signs Temperature 98.0 F 06/18/24 14:52 Pulse Rate 69 06/18/24 16:27 Respiratory Rate 18 06/18/24 15:49 Blood Pressure 128/54 06/18/24 16:27 Pulse Oximetry 96 06/18/24 16:27 Oxygen Delivery Me thod Room Air 06/18/24 16:27 MDM - Weakness Medical Decision Making Patient is a nice 78-year-old male here for generalized weakness-no focal findings. This has been an ongoing worsening issue. He has known issues with his esophagus. He has been told he has proximal esophageal dilatation with distal stricture. He does have an appointment with GI set up with is not until July. He states he has not been able to eat solid foods over the past 2 to 3 weeks. He states he can barely hold down small amounts of water. He arrives here generally weak and hypotensive. Blood pressure has responded to IV fluid resuscitation. Blood work showing an elevated white count. Lactic is mildly elevated. I do not suspect infectious etiology but will go ahead and start sepsis fluid bolus as well as antibiotics. Worsening kidney functions with his BUN/creatinine now at 92/2.7. His gap is 26.5. Suspect starvation as his etiology. UA still pending. CXR is unremarkable. Had CT of his neck on his last visit. Records from [facility] pending. Will admit to hospitalist Dr. Toledo. Spoke to Dr. Hastings who will be consulted for possible feeding tube placement. Dr. La aware of patient will place admit orders. Medical Records I reviewed the patient's medical records. Lab Data I reviewed the patient's lab results. 06/18/24 15:20 06/18/24 15:20 Radiology Impressions Chest X-Ray 06/18/24 15:18 IMPRESSION: No acute findings. Laboratory Results WBC 16.91 10^3/uL (3.29-11.43) H 06/18/24 15:20 RBC 5.66 10^6/uL (3.85-5.65) H 06/18/24 15:20 Hgb 14.70 g/dL (11.27-16.99) 06/18/24 15:20 Hct 47.3 % (37-53) 06/18/24 15:20 MCV 83.6 fl (82-101) 06/18/24 15:20 MCH 26.0 pg (27-33) L 06/18/24 15:20 MCHC 31.1 g/dL (30-55) 06/18/24 15:20 RDW 16.0 % (12.1-15.1) H 06/18/24 15:20 Plt Count 269 10^3/cmm (157-399) 06/18/24 15:20 MPV 10.3 fL (7.4-10.4) 06/18/24 15:20 Neut % (Auto) 87.5 % 06/18/24 15:20 Lymph % (Auto) 8.0 % 06/18/24 15:20 [place] % (Auto) 3.7 % 06/18/24 15:20 Eos % (Auto) 0.0 % 06/18/24 15:20 Baso % (Auto) 0.1 % 06/18/24 15:20 Neut # (Auto) 14.79 10^3/uL (1.8-7.7) H 06/18/24 15:20 Lymph # (Auto) 1.4 10^3/uL (0.8-4.8) 06/18/24 15:20 [place] # (Auto) 0.6 10^3/uL (0.2-0.9) 06/18/24 15:20 Eos # (Auto) 0.0 10^3/uL (0.0-0.8) 06/18/24 15:20 Baso # (Auto) 0.0 10^3/uL (0.0-0.1) 06/18/24 15:20 Nucleated RBC % (auto) 0 % 06/18/24 15:20 Nucleated RBCs # 0.0 /100WBC 06/18/24 15:20 Sodium 140 mmol/L (136-145) 06/18/24 15:20 Potassium 5.5 mmol/L (3.5-5.1) H 06/18/24 15:20 Chloride 104 mmol/L (98-107) 06/18/24 15:20 Carbon Dioxide 15 mmol/L (22-29) L 06/18/24 15:20 Anion Gap 26.5 (5-19) H 06/18/24 15:20 BUN 92 mg/dL (8-23) H* 06/18/24 15:20 Creatinine 2.7 mg/dL (0.7-1.2) H 06/18/24 15:20 GFR Calculation Not Reportable 06/18/24 15:20 Glucose 298 mg/dL (65-115) H 06/18/24 15:20 Calculated Osmolality 329 mOsm/kg (285-295) H 06/18/24 15:20 Lactic Acid 2.6 mmol/L (0.5-2.2) H 06/18/24 15:20 Calcium 8.9 mg/dL (8.5-10.5) 06/18/24 15:20 Total Bilirubin 0.4 mg/dL (0.15-1.2) 06/18/24 15:20 AST 6 U/L (0-40) 06/18/24 15:20 ALT < 5 U/L (0-41) 06/18/24 15:20 Alkaline Phosphatase 76 U/L (40-130) 06/18/24 15:20 Total Protein 7.4 g/dL (6.6-8.7) 06/18/24 15:20 Albumin 3.2 g/dL (3.5-5.2) L 06/18/24 15:20 Globulin 4.2 g/dL (1.3-4.6) 06/18/24 15:20 All radiology interpretation(s) finalized by discharge Discharge Plan Discharge Patient Disposition: Admitted As Inpatient Clinical Impression: Lung cancer metastatic to brain, Starvation ketoacidosis Acute kidney failure Qualifiers: Acute renal failure type: unspecified Qualified Code(s): N17.9 - Acute kidney failure, unspecified Condition: Stable Coding Level of Care Code ED [employer] Scientist for [facility] Fwd Related Data Home Medications Medication Instructions Recorded Confirmed glipizide 10 mg tablet 10 mg PO TID 11/20/21 05/28/24 hydrocodone 5 mg-acetaminophen 325 See Rx Instructions .Route 11/20/21 05/28/24 mg tablet .COMPLEX PRN Pain insulin glargine 100 unit/mL See Rx Instructions .Route .COMPLEX 11/20/21 05/28/24 subcutaneous solution (Lantus U-100 Insulin) metoprolol tartrate 25 mg tablet 12.5 mg PO BID 11/20/21 05/28/24 omega-3 fatty acids 500 mg capsule 1,000 mg PO BID 11/20/21 05/28/24 pravastatin 80 mg tablet 80 mg PO QPM 11/20/21 05/28/24 tamsulosin 0.4 mg capsule 0.4 mg PO QPM 11/20/21 05/28/24 amlodipine 2.5 mg tablet 2.5 mg PO DAILY 05/20/22 05/28/24 cholecalciferol (vitamin D3) 25 25 mcg PO DAILY 05/20/22 05/28/24 mcg (1,000 unit) capsule hydrochlorothiazide 25 mg tablet 12.5 mg PO DAILY 05/20/22 05/28/24 lisinopril 40 mg tablet 20 mg PO DAILY 05/20/22 05/28/24 nortriptyline 75 mg capsule 75 mg PO BEDTIME 05/20/22 05/28/24 aspirin 81 mg tablet,delayed 81 mg PO DAILY 08/03/23 05/28/24 release hydrocortisone 2.5 % topical See Rx Instructions .Route .COMPLEX 08/03/23 05/28/24 ointment ketoconazole 2 % shampoo See Rx Instructions .Route .COMPLEX 08/03/23 05/28/24 clobetasol 0.05 % scalp solution 1 applic topical BID 05/28/24 05/28/24 empagliflozin 25 mg tablet 25 mg PO DAILY 05/28/24 05/28/24 (Jardiance) metformin 500 mg tablet 250 mg PO BID 05/28/24 05/28/24 sildenafil 100 mg tablet See Rx Instructions .Route .COMPLEX 05/28/24 05/28/24 sitagliptin 50 mg tablet 50 mg PO DAILY 05/28/24 05/28/24 Previous Rx's Medication Instructions Recorded dexamethasone 1.5 mg tablet 3 mg (2 x 1.5 mg) PO Q6H #20 tabs 06/14/24 Allergies Allergy/AdvReac Type Severity Reaction Status Date / Time Iodine and Iodide Containing Allergy Unresponsiv Verified 06/14/24 15:40 Produc e
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
[2024-06-18 15:28] LABS: Basophils % 0.1 %; Hematocrit 47.3 % (37-53); Lymphocytes # 1.4 10^3/uL (0.8-4.8); Mean Corpuscular HGB Conc 31.1 g/dL (30-55); Mean Corpuscular Volume 83.6 fl (82-101); Mean Platelet Volume 10.3 fL (7.4-10.4); Monocytes # 0.6 10^3/uL (0.2-0.9); Monocytes % 3.7 %; Neutrophils # 14.79 10^3/uL (1.8-7.7); Neutrophils % 87.5 %; Nucleated Red Blood Cells % 0 %; Platelet Count 269 10^3/cmm (157-399); Red Blood Count 5.66 10^6/uL (3.85-5.65); White Blood Count 16.91 10^3/uL (3.29-11.43)
--- NOTE | 2024-06-18 15:38 | ECG_ITS ---
[facility] Test Date: 2024-06-18 Pat Name: Brian Hinkle Department: Room: Gender: Male General Foreman: : 1945 Requested By: Melodie Ruano Order Number: [id number] Rebecca MD: Enrique Garland M.D. Measurements Intervals [place] Rate: 68 P: 218 AR: 305 QRS: -36 QRSD: 117 T: 78 QT: 402 QTc: 428 Interpretive Statements Possible sinus rhythm with PVCs LEFT AXIS DEVIATION [QRS AXIS < -30] LOW QRS VOLTAGE IN PRECORDIAL LEADS [QRS DEFLECTION < 1.0 mV IN CHEST LEADS] MODERATE INTRAVENTRICULAR CONDUCTION DELAY [105+ ms QRS DURATION, 80+ ms Q/S IN V1/V2, NO Q AND 60+ ms R IN I/aVL/V5/V6] MINIMAL VOLTAGE CRITERIA FOR LVH, CONSIDER NORMAL VARIANT [MEETS CRITERIA IN ONE OF: R(aVL), S(V1), R(V5), R(V5/V6)+S(V1)] MODERATE T-WAVE ABNORMALITY, CONSIDER LATERAL ISCHEMIA [-0.1+ mV T-WAVE IN I/aVL/V5/V6] Heavy baseline artifact Need to repeat the study Electronically Signed On 06-18-2024 23:41:40 CDT by Enrique Garland M.D. [id number]
[2024-06-18] MEDS: sodium chloride 0.9% 1,000 ML 999 ML IV ×2 (15:47→16:26)
[2024-06-18 15:49] VITALS: BP 108/51; PULSE 73; RESP 18; O2SAT 94
[2024-06-18 15:55] LABS: Alanine Aminotransferase < 5 U/L (0-41); Albumin Level 3.2 g/dL (3.5-5.2); Alkaline Phosphatase 76 U/L (40-130); Anion Gap 26.5 (5-19); Aspartate Amino Transferase 6 U/L (0-40); Calcium 8.9 mg/dL (8.5-10.5); Carbon Dioxide 15 mmol/L (22-29); Chloride 104 mmol/L (98-107); Creatinine Clr Calc Pharmacy 23.2836; Globulin 4.2 g/dL (1.3-4.6); Glucose 298 mg/dL (65-115); Osmolality Calculated 329 mOsm/kg (285-295); Potassium 5.5 mmol/L (3.5-5.1); Sodium 140 mmol/L (136-145); Total Bilirubin 0.4 mg/dL (0.15-1.2); Total Protein 7.4 g/dL (6.6-8.7)
[2024-06-18 15:58] LABS: Lactic Sepsis W/Reflex 2.6 mmol/L (0.5-2.2)
[2024-06-18 15:59] LABS: Blood Urea Nitrogen 92 mg/dL (8-23)
[2024-06-18] MEDS: piperacillin-tazobactam 3.375 GM in sodium chloride 0.9% (plus) 50 ML IV ×2 (16:26→22:20)
[2024-06-18 16:27] VITALS: BP 128/54; PULSE 69; O2SAT 96
--- NOTE | 2024-06-18 17:15 | PM.HP ---
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 Cox on Monday presented with chief complaint of recurrent nausea vomiting generalized weakness and fatigue. Patient is extremely dehydrated with worsening of kidney function, he has leukocytosis he is afebrile. Patient and both wants feeding tube placement. Stating that they have a procedure for esophagus in July at [facility]. Patient is full code. He has not experienced any chest pain shortness of breath, fever but stating that he has not eaten well in last few weeks. He has lost 40 pounds. He has been on steroids as well he was released from the [facility] [place] a week ago. Secondary to metastatic brain lesion he has left-sided chronic weakness. Uses a walker at home. Review of Systems Const: Reports: body aches, change in weight and fatigue; Denies: fever(s) Eyes: Denies: change in vision ENMT: Denies: throat pain Card: Denies: chest pain Resp: Reports: dyspnea GI: Reports: abdominal pain, nausea and vomiting : Denies: flank pain Musc: Reports: back pain; Denies: neck pain Medications/Allergies Home Medications Medication Instructions Recorded Confirmed Last Taken Type glipizide 10 mg tablet 10 mg PO TID 11/20/21 05/28/24 11/20/21 History hydrocodone 5 mg-acetaminophen 325 See Rx Instructions .Route 11/20/21 05/28/24 11/19/21 History mg tablet .COMPLEX PRN Pain insulin glargine 100 unit/mL See Rx Instructions .Route .COMPLEX 11/20/21 05/28/24 11/20/21 History subcutaneous solution (Lantus U-100 Insulin) metoprolol tartrate 25 mg tablet 12.5 mg PO BID 11/20/21 05/28/24 11/19/21 History omega-3 fatty acids 500 mg capsule 1,000 mg PO BID 11/20/21 05/28/24 11/20/21 History pravastatin 80 mg tablet 80 mg PO QPM 11/20/21 05/28/24 11/19/21 History tamsulosin 0.4 mg capsule 0.4 mg PO QPM 11/20/21 05/28/24 11/19/21 History amlodipine 2.5 mg tablet 2.5 mg PO DAILY 05/20/22 05/28/24 Unknown History cholecalciferol (vitamin D3) 25 25 mcg PO DAILY 05/20/22 05/28/24 Unknown History mcg (1,000 unit) capsule hydrochlorothiazide 25 mg tablet 12.5 mg PO DAILY 05/20/22 05/28/24 Unknown History lisinopril 40 mg tablet 20 mg PO DAILY 05/20/22 05/28/24 Unknown History nortriptyline 75 mg capsule 75 mg PO BEDTIME 05/20/22 05/28/24 Unknown History aspirin 81 mg tablet,delayed 81 mg PO DAILY 08/03/23 05/28/24 Unknown History release hydrocortisone 2.5 % topical See Rx Instructions .Route .COMPLEX 08/03/23 05/28/24 Unknown History ointment ketoconazole 2 % shampoo See Rx Instructions .Route .COMPLEX 08/03/23 05/28/24 Unknown History clobetasol 0.05 % scalp solution 1 applic topical BID 05/28/24 05/28/24 Unknown History empagliflozin 25 mg tablet 25 mg PO DAILY 05/28/24 05/28/24 Unknown History (Jardiance) metformin 500 mg tablet 250 mg PO BID 05/28/24 05/28/24 Unknown History sildenafil 100 mg tablet See Rx Instructions .Route .COMPLEX 05/28/24 05/28/24 Unknown History sitagliptin 50 mg tablet 50 mg PO DAILY 05/28/24 05/28/24 Unknown History dexamethasone 1.5 mg tablet 3 mg (2 x 1.5 mg) PO Q6H #20 tabs 06/14/24 Unknown Rx Allergies Allergy/AdvReac Type Severity Reaction Status Date / Time Iodine and Iodide Containing Allergy Unresponsiv Verified 06/14/24 15:40 Produc e PFSH Acute PFSH: Medical History (Updated 06/18/24 @ 17:46 by Brittney Toledo MD) Male circumcision History of nonmelanoma skin cancer Chronic kidney disease BPH (benign prostatic hyperplasia) Diabetes mellitus Multiple sclerosis Renal cancer CAD (coronary artery disease) HLD (hyperlipidemia) HTN (hypertension) Surgical History (Updated 06/18/24 @ 17:46 by Brittney Toledo MD) History of colonoscopy History of surgery on wrist History of nephrectomy History of coronary artery stent placement Family History Mother , at age 81 Acute leukemia Father , at age 76 Tooth abscess Brother , in his 70 Cancer Colon Cancer Brother , 2nd brother in 70s Cancer colon cancer Brother Bladder cancer Social History Smoking and tobacco/nicotine status: never used tobacco/nicotine Alcohol intake: never Household members: spouse Marital status: Current occupational status: retired Vitals/I&O/Wt Last Vital Signs Temp 98.0 F 06/18/24 14:52 Pulse 69 06/18/24 16:27 Resp 18 06/18/24 15:49 BP 128/54 06/18/24 16:27 Pulse Ox 96 06/18/24 16:27 O2 Del Method Room Air 06/18/24 16:27 06/18/24 06/18/24 06/18/24 06:59 14:59 22:59 Intake Total 1000 / 1000 Balance 1000 / 1000 Weight last 48 hrs Weight 70.76 kg Physical Exam Narrative: Cachectic, malnourished Sarcopenia Awake and alert GCS 15 Husky voice S1, S2 tachycardia Hemodynamically stable at the bedside Currently on room air Left-sided weakness Data 06/18/24 15:20 06/18/24 15:20 Micro: Microbiology 06/18/24 16:37 Blood Culture - Preliminary Blood SPECIMEN COLLECTED 06/18/24 16:30 Blood Culture - Preliminary Blood SPECIMEN COLLECTED A&P Assessment and plan (1) Esophagitis: (2) Chronic kidney disease: Qualifiers: Chronic kidney disease stage: stage 3 (moderate) Chronic kidney disease stage 3 subtype: stage 3a (GFR 45-59) Qualified Code(s): N18.31 - Chronic kidney disease, stage 3a (3) Acute renal impairment: (4) Dehydration: (5) Starvation ketoacidosis: (6) Lung cancer metastatic to brain: (7) Malnourished: Plan Patient is stating that he has been diagnosed with renal cell cancer He has mets to lungs and brain He is scheduled for radiotherapy in esophageal intervention in July Significant protein calorie malnourishment General surgery consult for PEG tube placement Patient is full code Patient has history of coronary disease with 2 stents No active chest pain Patient uses a walker at home Will place Fong catheter Dietary consult N.p.o. Start IV fluids with LR Will request records from [facility] [place]. Attestations Medical Necessity Statement*: Anticipating more than 2 midnights Diagnoses Esophagitis K20.90 Stage 3a chronic kidney disease N18.31 Chronic kidney disease stage: stage 3 (moderate) Chronic kidney disease stage 3 subtype: stage 3a (GFR 45-59) Acute renal impairment N28.9 Dehydration E86.0 Starvation ketoacidosis T73.0XXA; E87.29 Lung cancer metastatic to brain C34.90; C79.31 Malnourished E46
[2024-06-18 17:31] LABS: Reflex Lactate Order REFLEX LACTIC ORDERD
[2024-06-18 17:58] VITALS: BP 134/63; PULSE 63; O2SAT 98
[2024-06-18 18:58] LABS: Charge for UA Resulting for Rev
[2024-06-18 19:00] VITALS: BP 139/65; PULSE 66; O2SAT 99
[2024-06-18 19:10] LABS: Bilirubin Urine Negative (Negative); Blood Urine Negative (Negative); Glucose Urine UA 3+ (Normal); Ketones Urine Trace (Negative); Leukocyte Esterase Urine Negative (Negative); Nitrate Urine Negative (Negative); Protein Urine Trace (Negative); Specific Gravity, Urine 1.023 (1.005-1.030); Urine Appearance Clear (CLEAR); Urine Color Yellow (Yellow)
[2024-06-18 19:13] LABS: Lactic Acid level (Lactate) 1.4 mmol/L (0.5-2.2)
[2024-06-18 19:16] LABS: Bacteria Urine None Seen /hpf; Hyaline Casts Urine 20.27 /lpf; RBC Urine 0-2 /hpf (0-2); Squamous Epithelial Cell Urine 0-5 /hpf (0-5); WBC Urine 0-5 /hpf (0-5)
[2024-06-18 19:30] VITALS: BP 136/70; PULSE 63; O2SAT 95
[2024-06-18 19:34] LABS: UA Slide Review UA Slide Review Perf
[2024-06-18 21:03] LABS: Glucose Point of Care 189 mg/dL (70-110)
[2024-06-18 21:06] VITALS: BMI 23.0
[2024-06-18] MEDS: pantoprazole 40 mg SDV IVP (21:36)
[2024-06-18] MEDS: insulin lispro 100 unit/1 mL SUBCUT (21:36)
[2024-06-18] MEDS: sodium bicarbonate 150 MEQ in dextrose 5% 1,000 ML 100 MEQ IV (21:37)
[2024-06-19] VITALS (13 sets, daily range): BP systolic 90–123; BP diastolic 52–70; PULSE 61–78; RESP 16–18; TEMP 36.2–36.8; O2SAT 91–100
[2024-06-19 00:09] LABS: Estmated Average Glucose 194; Hemoglobin A1C 8.4 % (4.0-6.0)
[2024-06-19] MEDS: HYDROcodone-acetaminophen 5-325 mg Tablet 1 TAB PO (01:38)
[2024-06-19 05:57] LABS: Basophils % 0.1 %; Eosinophils % 0.1 %; Lymphocytes # 1.3 10^3/uL (0.8-4.8); Lymphocytes % 12.3 %; Mean Corpuscular HGB Conc 31.1 g/dL (30-55); Mean Corpuscular Hemoglobin 25.8 pg (27-33); Mean Corpuscular Volume 82.9 fl (82-101); Mean Platelet Volume 10.2 fL (7.4-10.4); Monocytes # 0.7 10^3/uL (0.2-0.9); Monocytes % 6.7 %; Neutrophils # 8.76 10^3/uL (1.8-7.7); Neutrophils % 80.3 %; Nucleated Red Blood Cells % 0 %; Platelet Count 181 10^3/cmm (157-399); Red Blood Count 5.43 10^6/uL (3.85-5.65); Red Cell Distribution Width 15.9 % (12.1-15.1)
[2024-06-19 06:21] LABS: Anion Gap 18.5 (5-19); Blood Urea Nitrogen 70 mg/dL (8-23); Carbon Dioxide 21 mmol/L (22-29); Chloride 109 mmol/L (98-107); Creatinine Clr Calc Pharmacy 34.5671; Glucose 190 mg/dL (65-115); Magnesium 2.5 mg/dL (1.7-2.3); Osmolality Calculated 324 mOsm/kg (285-295); Phosphorus 3.8 mg/dL (2.5-4.5); Potassium 4.5 mmol/L (3.5-5.1); Sodium 144 mmol/L (136-145)
[2024-06-19 06:23] LABS: Glucose Point of Care 143 mg/dL (70-110)
[2024-06-19] MEDS: piperacillin-tazobactam 3.375 GM in sodium chloride 0.9% (plus) 50 ML IV (06:27)
--- NOTE | 2024-06-19 07:22 | PC.PHAR ---
[facility] IS [facility] 06/19/24 7:20AM-WILL VISIT PT IN ROOM TO SEE IF HE CARRIES A LIST.
[2024-06-19] MEDS: pantoprazole 40 mg SDV IVP ×2 (08:29→18:02)
--- NOTE | 2024-06-19 09:00 | PC.PHAR ---
Spouse states pt took all medications last on the . Pt took only steroids yesterday. Spouse states blood pressure meds are on hold due to low bp.
--- NOTE | 2024-06-19 09:21 | PC.CHAP ---
Pastoral Care Encounter/Spiritual Assessment Type of Contact [] Declined service station attendant visit [] Patient/Family/Request visit [] Outpatient visit [] Follow-up visit [] Physician referral [] Code/Alert [] Routine visit [] Staff referral [] Actively dying [] Patient sleeping [] Family support [] [] Out of room [] Palliative care [] [x] Receiving care in room [] Pre-surgical visit [] Trauma [] Long length of stay [] ICU visit [] Other: Relational/Emotional Strength [] Patient feels connected with others/family/visitors/staff [] Distress [] Loneliness/isolation [] Abandonment Spirituality of Patient [] Person of Ernestina [] Attends Nondenominational of their Ernestina [] Believes in Prayer [] Reads Bible or Episcopalian materials [] There are Spiritual issues to be addressed Local Hazmat Driver Interventions [] Prayer [] Active listening [] Non-anxious presence [] Spiritual/emotional support [] Crisis/trauma care [] Spiritual counseling [] Bereavement support [] Provided bereavement packet [] Provided Bible/devotional materials [] Provided toy/stuffed animal, coloring book to patient or family member [] Provided Communion [] Anointing/[place] [] Salvation [] Completed spiritual assessment [] Other: Impact on Illness or Injury [] Angry [] Fearful [] Anxious [] Often cries [] Exhaustion [] Unable to work [] Unable to attend jehovah's witness [] Unable to walk/stand [] Unable to read [] Unable to drive [] Unable to eat/drink [] Unable to sleep [] Unable to be with family [] Patient intubated [] Other: Summary Time spent with patient
--- NOTE | 2024-06-19 09:46 | P.PN_ITS ---
Subjective 2 Subjective: N.p.o. for PEG tube placement Will start feeding tube diet 24 hours after tube placement Bicarb drip turned off Acidosis improved Start D5 LR Discontinue IV antibiotics it was a leukemoid reaction to stress and starvation No signs of infection Vitals/I&O/Wt Last Vital Signs Temp 98.3 F 06/19/24 07:39 Pulse 69 06/19/24 09:30 Resp 16 06/19/24 09:30 BP 112/62 06/19/24 07:39 Pulse Ox 96 06/19/24 09:30 O2 Del Method Room Air 06/19/24 09:30 06/18/24 06/19/24 06/19/24 22:59 06:59 14:59 Intake Total 2049 350 / 2400 Output Total 2349 / 2350 Balance 2049 -1999 / Weight last 48 hrs Weight 68.946 kg Weight 70.76 kg Weight 70.76 kg Physical Exam 2 Narrative: Malnourished Sarcopenia Signs of dehydration present Awake and alert Husky voice Hoarseness of voice Nonfocal neuroexam Pleasant cough Hemodynamic stable Currently on room air Family at the bedside Urinary Catheter Management: Fong: Cath Placed During This Visit: yes Reason for Continuing Indwelling Catheter: Other Urinary Catheter Date of Insertion: 06/18/24 Urinary Catheter Time of Insertion: 22:45 Data 06/19/24 05:22 06/19/24 05:22 Micro: Microbiology 06/18/24 16:37 Blood Culture - Preliminary Blood SPECIMEN COLLECTED 06/18/24 16:30 Blood Culture - Preliminary Blood SPECIMEN COLLECTED A&P Assessment and plan (1) Esophagitis: (2) Malnourished: (3) History of coronary artery stent placement: (4) Chronic kidney disease: Qualifiers: Chronic kidney disease stage: stage 3 (moderate) Chronic kidney disease stage 3 subtype: stage 3a (GFR 45-59) Qualified Code(s): N18.31 - Chronic kidney disease, stage 3a (5) Acute kidney failure: Qualifiers: Acute renal failure type: unspecified Qualified Code(s): N17.9 - Acute kidney failure, unspecified (6) Starvation ketoacidosis: (7) Dehydration: (8) Lung cancer metastatic to brain: Plan Sarcopenia, malnourished Renal cell cancer with mets to lungs and liver brain Will inform Dr. Cox regarding his hospitalization Patient is full code Acidosis improved related to starvation ketosis Discontinue bicarb drip Start D5 LR N.p.o. for PEG tube placement Likely will be discharged once we start feeding tube and optimize his feedings Appreciate dietary recommendations Continue Protonix Request records from [facility] Start DVT prophylaxis 6 hours after PEG tube placement Attestations 2 Medical Necessity Statement*: Continue medical management Diagnoses Esophagitis K20.90 Malnourished E46 History of coronary artery stent placement Z95.5 Stage 3a chronic kidney disease N18.31 Chronic kidney disease stage: stage 3 (moderate) Chronic kidney disease stage 3 subtype: stage 3a (GFR 45-59) Acute kidney failure N17.9 Acute renal failure type: unspecified Starvation ketoacidosis T73.0XXA; E87.29 Dehydration E86.0 Lung cancer metastatic to brain C34.90; C79.31
[2024-06-19 10:38] LABS: Glucose Point of Care 148 mg/dL (70-110)
[2024-06-19] MEDS: dextrose 5%-lactated ringers 1,000 ML 75 ML IV (11:37)
[2024-06-19] MEDS: sodium chloride 0.9% 1,000 ML 30 ML IV (12:41)
--- NOTE | 2024-06-19 13:43 | P.ANESASSM_ITS ---
Pre-Anesthetic Assessment Height/Weight: Height 5 ft 9 in Weight 152 lb Temp Pulse Resp BP Pulse Ox O2 Del Method 97.2 F L 72 18 90/52 95 Room Air 06/19/24 12:23 06/19/24 12:23 06/19/24 12:23 06/19/24 12:23 06/19/24 12:23 06/19/24 12:23 Operation Date: 06/19/24 12:45 Proposed Procedures p EGD WITH POSSIBLE BALLOON DILATION(Not Applicable) - DO florecita Dears PEG Tube Insertion(Not Applicable) - Rainer Hastings DO Social No alcohol and No tobacco Exam alert, oriented x 3, clear to auscultation bilaterally and regular rate & rhythm Anesthetic Plan Other: No past issues with anesthesia Patient has not not reportedly eaten in 2 weeks due to issues with swallowing Status post nephrectomy secondary to renal cancer with metastasis to the lung and brain Patient is seing oncology next week for possible chemo/radiation Labs reviewed and acceptable for procedure EKG sinus rhythm with a conduction delay Patient states that he is not able to ambulate currently due to lethargy, METS less than 4 Plan for MAC anesthesia Medications/Allergies Home Medications Medication Instructions Recorded Confirmed Last Taken Type glipizide 10 mg tablet 10 mg PO TID 11/20/21 06/19/24 06/17/24 History hydrocodone 5 mg-acetaminophen 325 See Rx Instructions .Route 11/20/21 06/19/24 11/19/21 History mg tablet .COMPLEX PRN Pain insulin glargine 100 unit/mL See Rx Instructions .Route .COMPLEX 11/20/21 06/19/24 06/17/24 History subcutaneous solution (Lantus U-100 Insulin) metoprolol tartrate 25 mg tablet 12.5 mg PO BID 11/20/21 06/19/24 11/19/21 History omega-3 fatty acids 500 mg capsule 1,000 mg PO BID 11/20/21 06/19/24 11/20/21 History pravastatin 80 mg tablet 80 mg PO QPM 11/20/21 06/19/24 06/17/24 History tamsulosin 0.4 mg capsule 0.4 mg PO QPM 11/20/21 06/19/24 06/17/24 History amlodipine 2.5 mg tablet 2.5 mg PO DAILY 05/20/22 06/19/24 Unknown History cholecalciferol (vitamin D3) 25 25 mcg PO DAILY 05/20/22 06/19/24 06/17/24 History mcg (1,000 unit) capsule lisinopril 40 mg tablet 20 mg PO DAILY 05/20/22 06/19/24 Unknown History nortriptyline 75 mg capsule 75 mg PO BEDTIME 05/20/22 06/19/24 06/17/24 History aspirin 81 mg tablet,delayed 81 mg PO DAILY 08/03/23 06/19/24 06/17/24 History release hydrocortisone 2.5 % topical See Rx Instructions .Route .COMPLEX 08/03/23 06/19/24 Unknown History ointment ketoconazole 2 % shampoo See Rx Instructions .Route .COMPLEX 08/03/23 06/19/24 Unknown History clobetasol 0.05 % scalp solution 1 applic topical BID 05/28/24 06/19/24 Unknown History empagliflozin 25 mg tablet 25 mg PO DAILY 05/28/24 06/19/24 06/17/24 History (Jardiance) metformin 500 mg tablet 250 mg PO BID 05/28/24 06/19/24 06/17/24 History sildenafil 100 mg tablet See Rx Instructions .Route .COMPLEX 05/28/24 06/19/24 Unknown History sitagliptin 50 mg tablet 50 mg PO DAILY 05/28/24 06/19/24 06/17/24 History dexamethasone 1.5 mg tablet 3 mg (2 x 1.5 mg) PO Q6H #20 tabs 06/14/24 06/19/24 06/18/24 Rx Allergies Allergy/AdvReac Type Severity Reaction Status Date / Time Iodine and Iodide Containing Allergy Unresponsiv Verified 06/14/24 15:40 Produc e Current Medications Generic Name Dose Route Start Last Admin Trade Name Freq PRN Reason Stop Dose Admin Dextrose/Lactated Ringer's 1,000 mls @ 75 mls/hr 06/19/24 10:00 06/19/24 11:37 Dextrose 5%-Lactated Ringers IV 75 mls/hr .[id number] JAE Administration Sodium Chloride 1,000 mls @ 30 mls/hr 06/19/24 12:30 06/19/24 12:41 Sodium Chloride 0.9% IV 06/20/24 12:29 30 mls/hr .Q24H JAE Administration Insulin Human Lispro 0 unit 06/18/24 19:40 06/19/24 11:38 Insulin Lispro 100 Unit/1 Ml SUBCUT Not Given TIDWM [facility] Protocol Pantoprazole Sodium 40 mg 06/18/24 19:40 06/19/24 08:29 Pantoprazole 40 Mg Sdv IVP 40 mg BID JAE Administration PFSH Anesthesia Medical History (Updated 06/18/24 @ 17:46 by Brittney Toledo MD) Male circumcision History of nonmelanoma skin cancer Chronic kidney disease BPH (benign prostatic hyperplasia) Diabetes mellitus Multiple sclerosis Renal cancer CAD (coronary artery disease) HLD (hyperlipidemia) HTN (hypertension) Surgical History (Updated 06/18/24 @ 17:46 by Brittney Toledo MD) History of colonoscopy History of surgery on wrist History of nephrectomy History of coronary artery stent placement Family History Mother , at age 81 Acute leukemia Father , at age 76 Tooth abscess Brother , in his 70 Cancer Colon Cancer Brother , 2nd brother in 70s Cancer colon cancer Brother Bladder cancer Social History Smoking and tobacco/nicotine status: never used tobacco/nicotine Alcohol intake: never Household members: spouse Marital status: Current occupational status: retired Data Anesthesia 06/19/24 05:22 06/19/24 05:22 Short CBC 06/18/24 06/19/24 Range/Units 15:20 05:22 WBC 16.91 H 10.90 (3.29-11.43) 10^3/uL Hgb 14.70 14.00 (11.27-16.99) g/dL Hct 47.3 45.0 (37-53) % MCV 83.6 82.9 (82-101) fl Plt Count 269 181 D (157-399) 10^3/cmm Neut % (Auto) 87.5 80.3 % Neut # (Auto) 14.79 H 8.76 H (1.8-7.7) 10^3/uL BMP 06/18/24 06/19/24 15:20 05:22 Sodium 140 144 Potassium 5.5 H 4.5 Chloride 104 109 H Carbon Dioxide 15 L 21 L BUN 92 H* 70 H Creatinine 2.7 H 1.8 H Glucose 298 H 190 H Calcium 8.9 8.0 L Liver Function 06/18/24 Range/Units 15:20 Total Bilirubin 0.4 (0.15-1.2) mg/dL AST 6 (0-40) U/L ALT < 5 (0-41) U/L Alkaline Phosphatase 76 (40-130) U/L Albumin 3.2 L (3.5-5.2) g/dL Urine 06/18/24 Range/Units 17:50 Urine Color Yellow (Yellow) Urine Appearance Clear (CLEAR) Urine pH 5.0 (5-7) Ur Specific [place] 1.023 (1.005-1.030) Urine Protein Trace A (Negative) Urine Glucose (UA) 3+ H (Normal) Urine Ketones Trace (Negative) Urine Nitrate Negative (Negative) Urine Bilirubin Negative (Negative) Ur Leukocyte Esterase Negative (Negative) Urine RBC 0-2 (0-2) /hpf Urine WBC 0-5 (0-5) /hpf Microbiology 06/18/24 16:37 Blood Culture - Preliminary Blood SPECIMEN COLLECTED 06/18/24 16:30 Blood Culture - Preliminary Blood SPECIMEN COLLECTED Cardiac Studies: 2 Echocardiogram 03/15/23 Sestamibi Stress Test (Cardiology) 09/20
--- NOTE | 2024-06-19 14:08 | P.CONIM_ITS ---
Providers/Reason For Consult 2 Consulting Physician/Specialty*: Dr. Rainer Hastings, DO/General Surgery Reason for Consult*: Dysphagia Attending Physician: Brittney Toledo MD Primary Care Provider: Ml Herrmann MD History of Present Illness History of Present Illness Brian Hinkle is a 78 year old male who presents to the hospital with dysphagia and acute kidney injury. 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 He reports that he is unable to swallow almost anything and has difficulty even with thin liquids. This been going on for several months. He does have some mild epigastric abdominal pain that does not radiate. Drinking liquids to make the pain worse. Nothing seems to make the pain better. He presented with nausea and vomiting. He denies any diarrhea, constipation, hematochezia and/or melena. He was requesting a feeding tube. Denies any heartburn. Review of Systems 2 General: Reports: 10 or more systems reviewed and unremarkable except in HPI and below Medications/Allergies Home Medications Medication Instructions Recorded Confirmed Last Taken Type glipizide 10 mg tablet 10 mg PO TID 11/20/21 06/19/24 06/17/24 History hydrocodone 5 mg-acetaminophen 325 See Rx Instructions .Route 11/20/21 06/19/24 11/19/21 History mg tablet .COMPLEX PRN Pain insulin glargine 100 unit/mL See Rx Instructions .Route .COMPLEX 11/20/21 06/19/24 06/17/24 History subcutaneous solution (Lantus U-100 Insulin) metoprolol tartrate 25 mg tablet 12.5 mg PO BID 11/20/21 06/19/24 11/19/21 History omega-3 fatty acids 500 mg capsule 1,000 mg PO BID 11/20/21 06/19/24 11/20/21 History pravastatin 80 mg tablet 80 mg PO QPM 11/20/21 06/19/24 06/17/24 History tamsulosin 0.4 mg capsule 0.4 mg PO QPM 11/20/21 06/19/24 06/17/24 History amlodipine 2.5 mg tablet 2.5 mg PO DAILY 05/20/22 06/19/24 Unknown History cholecalciferol (vitamin D3) 25 25 mcg PO DAILY 05/20/22 06/19/24 06/17/24 History mcg (1,000 unit) capsule lisinopril 40 mg tablet 20 mg PO DAILY 05/20/22 06/19/24 Unknown History nortriptyline 75 mg capsule 75 mg PO BEDTIME 05/20/22 06/19/24 06/17/24 History aspirin 81 mg tablet,delayed 81 mg PO DAILY 08/03/23 06/19/24 06/17/24 History release hydrocortisone 2.5 % topical See Rx Instructions .Route .COMPLEX 08/03/23 06/19/24 Unknown History ointment ketoconazole 2 % shampoo See Rx Instructions .Route .COMPLEX 08/03/23 06/19/24 Unknown History clobetasol 0.05 % scalp solution 1 applic topical BID 05/28/24 06/19/24 Unknown History empagliflozin 25 mg tablet 25 mg PO DAILY 05/28/24 06/19/24 06/17/24 History (Jardiance) metformin 500 mg tablet 250 mg PO BID 05/28/24 06/19/24 06/17/24 History sildenafil 100 mg tablet See Rx Instructions .Route .COMPLEX 05/28/24 06/19/24 Unknown History sitagliptin 50 mg tablet 50 mg PO DAILY 05/28/24 06/19/24 06/17/24 History dexamethasone 1.5 mg tablet 3 mg (2 x 1.5 mg) PO Q6H #20 tabs 06/14/24 06/19/24 06/18/24 Rx Allergies Allergy/AdvReac Type Severity Reaction Status Date / Time Iodine and Iodide Containing Allergy Unresponsiv Verified 06/14/24 15:40 Produc e Current Medications Generic Name Dose Route Start Last Admin Trade Name Bianca PRN Reason Stop Dose Admin Dextrose/Lactated Ringer's 1,000 mls @ 75 mls/hr 06/19/24 10:00 06/19/24 11:37 Dextrose 5%-Lactated Ringers IV 75 mls/hr .[id number] JAE Administration Sodium Chloride 1,000 mls @ 30 mls/hr 06/19/24 12:30 06/19/24 12:41 Sodium Chloride 0.9% IV 06/20/24 12:29 30 mls/hr .Q24H JAE Administration Insulin Human Lispro 0 unit 06/18/24 19:40 06/19/24 11:38 Insulin Lispro 100 Unit/1 Ml SUBCUT Not Given TIDWM JAE Protocol Pantoprazole Sodium 40 mg 06/18/24 19:40 06/19/24 08:29 Pantoprazole 40 Mg Sdv IVP 40 mg BID JAE Administration PFSH Acute 2 PFSH: Medical History Male circumcision History of nonmelanoma skin cancer Chronic kidney disease BPH (benign prostatic hyperplasia) Diabetes mellitus Multiple sclerosis Renal cancer CAD (coronary artery disease) HLD (hyperlipidemia) HTN (hypertension) Surgical History History of colonoscopy History of surgery on wrist History of nephrectomy History of coronary artery stent placement Family History Mother , at age 81 Acute leukemia Father , at age 76 Tooth abscess Brother , in his 70 Cancer Colon Cancer Brother , 2nd brother in 70s Cancer colon cancer Brother Bladder cancer Social History Smoking and tobacco/nicotine status: never used tobacco/nicotine Alcohol intake: never Household members: spouse Marital status: Current occupational status: retired Vitals/I&O/Wt Last Vital Signs Temp 97.2 F L 06/19/24 12:23 Pulse 72 06/19/24 12:23 Resp 18 06/19/24 12:23 BP 90/52 06/19/24 12:23 Pulse Ox 95 06/19/24 12:23 O2 Del Method Room Air 06/19/24 12:23 06/18/24 06/19/24 06/19/24 22:59 06:59 14:59 Intake Total 2049 350 / 2400 Output Total 2350 / 2350 Balance 2049 -2000 / 50 Weight last 48 hrs Weight 152 lb Weight 156 lb Weight 156 lb Physical Exam 2 Narrative: General : Patient is well developed , no acute distress, oriented x3 Head : Normal cephalic, a-traumatic. Ears : Pinnae and external canal are normal. Hearing is normal. Eyes : PERRLA, Sclera and injection are normal. No conjunctival discharge. Nose : Mucous membranes are without erythema. Throat : buccal mucosa is normal, gums are without significant recession or hypertrophy. Lungs : Equal chest rise bilaterally, no use of accessory muscles, trachea is midline. Cor : Rate and rhythm are normal. Abdomen : Soft, ND, NT, no g/r/m Extremities : No edema, no cyanosis or clubbing, dorsalis pedis pulses are present bilaterally, non-tender to palpation of calves. Upper extremities are normal bilaterally. Back : non-tender to palpation, no CVA tenderness. Neuro : CN II - XII intact, Upper and lower extremities have equal and full strength Urinary Catheter Management: Fong: Cath Placed During This Visit: yes Reason for Continuing Indwelling Catheter: Other Urinary Catheter Date of Insertion: 06/18/24 Urinary Catheter Time of Insertion: 22:45 Data 06/19/24 05:22 06/19/24 05:22 Micro: Microbiology 06/18/24 16:37 Blood Culture - Preliminary Blood SPECIMEN COLLECTED 06/18/24 16:30 Blood Culture - Preliminary Blood SPECIMEN COLLECTED A&P Assessment and plan (1) Dysphagia: (2) Malnourished: (3) Metastatic carcinoma: Plan EGD with possible balloon dilation PEG tube insertion The risks and benefits of the procedure, including bleeding, infection, intestinal perforation requiring surgery, missed lesion were explained to the patient. The patient is understanding of the risks and wishes to proceed. Coding Level of Care Code 61568 Diagnoses Dysphagia R13.10 Malnourished E46 Metastatic carcinoma C79.9
[2024-06-19 16:45] LABS: Glucose Point of Care 161 mg/dL (70-110)
[2024-06-19] MEDS: insulin lispro 100 unit/1 mL SUBCUT (18:03)
[2024-06-19] MEDS: HYDROmorphone 1 mg/mL INJ 1 mL 0.5 MG IVP (19:20)
[2024-06-20] VITALS (8 sets, daily range): BP systolic 104–136; BP diastolic 57–69; PULSE 67–75; RESP 16–20; TEMP 36.4–36.8; O2SAT 90–96
[2024-06-20] MEDS: dextrose 5%-lactated ringers 1,000 ML 75 ML IV (01:18)
[2024-06-20 05:14] LABS: Eosinophils % 0.4 %; Hematocrit 46.3 % (37-53); Lymphocytes # 1.3 10^3/uL (0.8-4.8); Mean Corpuscular HGB Conc 30.2 g/dL (30-55); Mean Corpuscular Hemoglobin 25.5 pg (27-33); Mean Corpuscular Volume 84.5 fl (82-101); Mean Platelet Volume 9.7 fL (7.4-10.4); Monocytes # 0.6 10^3/uL (0.2-0.9); Monocytes % 8.2 %; Neutrophils # 5.43 10^3/uL (1.8-7.7); Nucleated Red Blood Cells % 0 %; Platelet Count 157 10^3/cmm (157-399); Red Blood Count 5.48 10^6/uL (3.85-5.65); White Blood Count 7.44 10^3/uL (3.29-11.43)
[2024-06-20 05:37] LABS: Blood Urea Nitrogen 42 mg/dL (8-23); Calcium 8.3 mg/dL (8.5-10.5); Carbon Dioxide 22 mmol/L (22-29); Chloride 109 mmol/L (98-107); Creatinine Clr Calc Pharmacy 48.4948; Glucose 220 mg/dL (65-115); Osmolality Calculated 317 mOsm/kg (285-295); Sodium 145 mmol/L (136-145)
[2024-06-20 06:31] LABS: Glucose Point of Care 254 mg/dL (70-110)
[2024-06-20] MEDS: insulin lispro 100 unit/1 mL SUBCUT (08:56)
[2024-06-20] MEDS: pantoprazole 40 mg SDV IVP ×2 (08:56→18:17)
--- NOTE | 2024-06-20 09:35 | P.PN_ITS ---
Subjective 2 Subjective: Status post PEG tube placement, will start feeding tube and will optimize next 24 hours and then patient will be discharged Vitals/I&O/Wt Last Vital Signs Temp 97.5 F L 06/20/24 07:34 Pulse 75 06/20/24 08:08 Resp 16 06/20/24 08:08 BP 120/67 06/20/24 07:34 Pulse Ox 95 06/20/24 08:08 O2 Del Method Room Air 06/20/24 08:08 O2 Flow Rate 2 06/19/24 15:15 06/19/24 06/20/24 06/20/24 22:59 06:59 14:59 Intake Total 1680 / 2080 1000 / 3080 120 / 120 Output Total 400 / 400 300 / 700 1100 / 1100 Balance 1280 / 1680 700 / 2380 -980 / -980 Weight last 48 hrs Weight 71.259 kg Weight 68.946 kg Weight 70.76 kg Weight 70.76 kg Physical Exam 2 Narrative: Signs of dehydration improving Discontinue IV fluids Pleasant cooperative Hoarseness of voice Nonfocal neuroexam Hemodynamically stable currently on room air No audible stridor or wheezing Urinary Catheter Management: Fong: Cath Placed During This Visit: yes Reason for Continuing Indwelling Catheter: Other Urinary Catheter Date of Insertion: 06/18/24 Urinary Catheter Time of Insertion: 22:45 Data 06/20/24 04:58 06/20/24 04:58 Micro: Microbiology 06/18/24 16:37 Blood Culture - Preliminary Blood NEGATIVE TO DATE 06/18/24 16:30 Blood Culture - Preliminary Blood NEGATIVE TO DATE A&P Assessment and plan (1) S/P percutaneous endoscopic gastrostomy (PEG) tube placement: (2) Dysphagia: (3) Esophagitis: (4) Acute kidney failure: Qualifiers: Acute renal failure type: unspecified Qualified Code(s): N17.9 - Acute kidney failure, unspecified (5) Acute renal impairment: (6) Chronic kidney disease: Qualifiers: Chronic kidney disease stage: stage 3 (moderate) Chronic kidney disease stage 3 subtype: stage 3a (GFR 45-59) Qualified Code(s): N18.31 - Chronic kidney disease, stage 3a (7) Metastatic carcinoma: (8) Lung cancer metastatic to brain: Plan Optimize feeding tube in next 24 hours before discharging from the hospital Discontinue IV fluids, bicarb drip turned off MAURISIO improving with IV fluid hydration Signs of dehydration improving Electrolytes replenished No signs of arrhythmia no signs of refeeding syndrome Patient has hyperglycemia for which I would use insulin low intensity sliding scale For hypertension can resume lisinopril Attestations 2 Medical Necessity Statement*: Discharge tomorrow Coding Level of Care Code Acute Code for Chg Fwd Diagnoses S/P percutaneous endoscopic gastrostomy (PEG) tube placement Z93.1 Dysphagia R13.10 Esophagitis K20.90 Acute kidney failure N17.9 Acute renal failure type: unspecified Acute renal impairment N28.9 Stage 3a chronic kidney disease N18.31 Chronic kidney disease stage: stage 3 (moderate) Chronic kidney disease stage 3 subtype: stage 3a (GFR 45-59) Metastatic carcinoma C79.9 Lung cancer metastatic to brain C34.90; C79.31
[2024-06-20 10:49] LABS: Glucose Point of Care 153 mg/dL (70-110)
--- NOTE | 2024-06-20 14:01 | PC.NUTR ---
Addendum entered and electronically signed by Young Daly 06/20/24 14:06: Due to prolonged period of minimal po intakes, desire to start with bolus regimen, AND hospital shortage of Glucerna 1.5, begin with 120ml of glucerna oral supplement @1400 and 120ml @1700 today and increase to 240ml at 0900 tomorrow (06/21). Original Note: When medically cleared to initiate tube feeds, use Glucerna 1.[address] recs below: -Initiate at 15ml/hr -Advance by 10ml q12 as tolerated -Goal of 65 ml/hr x24hrs -FWF: 120ml q6 If bolus feeds are appropriate at discharge, use Glucerna 1.[address] recs below: -(2cans)480ml @B, (2cans)480ml @L, (2cans)480ml @D -FWF: 120ml q6
[2024-06-20 16:39] LABS: Glucose Point of Care 119 mg/dL (70-110)
[2024-06-20] MEDS: metoprolol tartrate 25 mg Tablet 12.5 MG PEG-TUBE (19:07)
[2024-06-20 20:56] LABS: Glucose Point of Care 146 mg/dL (70-110)
[2024-06-21] MEDS: trazodone 50 mg Tablet 25 MG PEG-TUBE (01:00)
[2024-06-21 03:56] LABS: Anion Gap 24.7 (5-19); Blood Urea Nitrogen 38 mg/dL (8-23); Calcium 8.4 mg/dL (8.5-10.5); Carbon Dioxide 19 mmol/L (22-29); Chloride 110 mmol/L (98-107); Creatinine Clr Calc Pharmacy 48.4948; Glucose 194 mg/dL (65-115); Osmolality Calculated 322 mOsm/kg (285-295); Potassium 4.7 mmol/L (3.5-5.1); Sodium 149 mmol/L (136-145)
[2024-06-21 04:00] VITALS: BP 101/63; PULSE 63; RESP 17; TEMP 36.5; O2SAT 96
[2024-06-21 06:35] LABS: Glucose Point of Care 179 mg/dL (70-110)
[2024-06-21 07:28] VITALS: BP 119/58; PULSE 63; RESP 19; TEMP 36.8; O2SAT 99
[2024-06-21 08:21] LABS: Magnesium 2.3 mg/dL (1.7-2.3); Phosphorus 2.7 mg/dL (2.5-4.5)
[2024-06-21] MEDS: lisinopril 5 mg Tablet PO (08:42)
[2024-06-21] MEDS: metoprolol tartrate 25 mg Tablet 12.5 MG PEG-TUBE (08:42)
[2024-06-21] MEDS: pantoprazole 40 mg SDV IVP (08:43)
[2024-06-21] MEDS: insulin lispro 100 unit/1 mL SUBCUT (09:06)
--- NOTE | 2024-06-21 09:26 | P.DS_ITS ---
Discharge Providers Date of Admission: 06/18/24 17:26 Date of Discharge: June 21, 2024 Attending Provider at Admission: Brittney Toledo MD Attending Provider at Discharge: Brittney Toledo MD Primary Care Provider: Ml Herrmann MD Diagnoses at Discharge Discharge Diagnosis (1) S/P percutaneous endoscopic gastrostomy (PEG) tube placement: Status: Acute (2) Dysphagia: Status: Acute (3) Esophagitis: Status: Acute (4) Acute kidney failure: Status: Acute Qualifiers: Acute renal failure type: unspecified Qualified Code(s): N17.9 - Acute kidney failure, unspecified (5) Acute renal impairment: Status: Acute (6) Chronic kidney disease: Status: Acute Qualifiers: Chronic kidney disease stage: stage 3 (moderate) Chronic kidney disease stage 3 subtype: stage 3a (GFR 45-59) Qualified Code(s): N18.31 - Chronic kidney disease, stage 3a (7) Metastatic carcinoma: Status: Acute (8) Lung cancer metastatic to brain: Status: Acute Reason for Visit Reason for Visit: sent by [facility] [place] IV Hospital Course Hospital Course 78-year-old male who has recently been diagnosed with renal cell cancer with mets to lungs and brain, patient has an appointment Dr. Cox on Monday to discuss radiotherapy and prognosis, patient also has dysphagia not able to eat anything through oral route, this admission was requested for acute on chronic kidney disease, severe dehydration and PEG tube placement. Dr. Hastings was consulted, patient had a PEG tube placed without any complications. After 24 hours we started using trickle feed with optimization every 8 hours, at the time of discharge patient will get instructions to use Glucerna bolus feeds. Patient's dehydration improved, no sign of refeeding syndrome potassium, phosphorus and magnesium within normal range no signs of arrhythmia. Patient is full code. Guarded prognosis with significant metastatic lesions. Please note patient was transferred to [facility] for midline shift related to metastatic edema we are diagnosis of renal cell cancer was made. PET scan was done and he was asked to follow-up with Dr. Cox. Considering weight loss and poor GFR I will discontinue glipizide and metformin along dexamethasone Physical Exam Narrative: Awake and alert Signs of dehydration present Family at the bedside PEG tube in place Nonfocal neuroexam Hoarseness of voice Currently on room air Urinary Catheter Management: Fong: Cath Placed During This Visit: yes Reason for Continuing Indwelling Catheter: Required Immobilization for Trauma or Surgery or Anesthesia Urinary Catheter Date of Insertion: 06/18/24 Urinary Catheter Time of Insertion: 22:45 Discharge Data Studies Completed and Pending Completed Studies During Hospitalization Category Date Time Status XR chest 1V portable [id number] Urgent Exams 06/18/24 15:18 Completed Pending at discharge Category Date Time Status Blood Culture Stat Lab 06/18/24 16:37 Results Pathology: Surgical [PTH] Routine Pth 06/19/24 14:44 Received Radiology Impressions Chest X-Ray 06/18/24 15:18 IMPRESSION: No acute findings. Laboratory Results WBC 7.44 10^3/uL (3.29-11.43) 06/20/24 04:58 RBC 5.48 10^6/uL (3.85-5.65) 06/20/24 04:58 Hgb 14.00 g/dL (11.27-16.99) 06/20/24 04:58 Hct 46.3 % (37-53) 06/20/24 04:58 MCV 84.5 fl (82-101) 06/20/24 04:58 MCH 25.5 pg (27-33) L 06/20/24 04:58 MCHC 30.2 g/dL (30-55) 06/20/24 04:58 RDW 16.0 % (12.1-15.1) H 06/20/24 04:58 Plt Count 157 10^3/cmm (157-399) 06/20/24 04:58 MPV 9.7 fL (7.4-10.4) 06/20/24 04:58 Neut % (Auto) 73.0 % 06/20/24 04:58 Lymph % (Auto) 18.0 % 06/20/24 04:58 [place] % (Auto) 8.2 % 06/20/24 04:58 Eos % (Auto) 0.4 % 06/20/24 04:58 Baso % (Auto) 0.0 % 06/20/24 04:58 Neut # (Auto) 5.43 10^3/uL (1.8-7.7) 06/20/24 04:58 Lymph # (Auto) 1.3 10^3/uL (0.8-4.8) 06/20/24 04:58 [place] # (Auto) 0.6 10^3/uL (0.2-0.9) 06/20/24 04:58 Eos # (Auto) 0.0 10^3/uL (0.0-0.8) 06/20/24 04:58 Baso # (Auto) 0.0 10^3/uL (0.0-0.1) 06/20/24 04:58 Nucleated RBC % (auto) 0 % 06/20/24 04:58 Nucleated RBCs # 0.0 /100WBC 06/20/24 04:58 Sodium 149 mmol/L (136-145) H 06/21/24 03:20 Potassium 4.7 mmol/L (3.5-5.1) 06/21/24 03:20 Chloride 110 mmol/L (98-107) H 06/21/24 03:20 Carbon Dioxide 19 mmol/L (22-29) L 06/21/24 03:20 Anion Gap 24.7 (5-19) H 06/21/24 03:20 BUN 38 mg/dL (8-23) H 06/21/24 03:20 Creatinine 1.3 mg/dL (0.7-1.2) H 06/21/24 03:20 GFR Calculation Not Reportable 06/21/24 03:20 Glucose 194 mg/dL (65-115) H 06/21/24 03:20 POC Glucose 179 mg/dL (70-110) H 06/21/24 06:31 Estimat Average Glucose 194 06/18/24 15:20 Hemoglobin A1c 8.4 % (4.0-6.0) H 06/18/24 15:20 Calculated Osmolality 322 mOsm/kg (285-295) H 06/21/24 03:20 Lactic Acid 2.6 mmol/L (0.5-2.2) H 06/18/24 15:20 Lactic Acid (Sepsis) 1.4 mmol/L (0.5-2.2) 06/18/24 18:40 Calcium 8.4 mg/dL (8.5-10.5) L 06/21/24 03:20 Phosphorus 2.7 mg/dL (2.5-4.5) 06/21/24 03:20 Magnesium 2.3 mg/dL (1.7-2.3) 06/21/24 03:20 Total Bilirubin 0.4 mg/dL (0.15-1.2) 06/18/24 15:20 AST 6 U/L (0-40) 06/18/24 15:20 ALT < 5 U/L (0-41) 06/18/24 15:20 Alkaline Phosphatase 76 U/L (40-130) 06/18/24 15:20 Total Protein 7.4 g/dL (6.6-8.7) 06/18/24 15:20 Albumin 3.2 g/dL (3.5-5.2) L 06/18/24 15:20 Globulin 4.2 g/dL (1.3-4.6) 06/18/24 15:20 Urine Color Yellow (Yellow) 06/18/24 17:50 Urine Appearance Clear (CLEAR) 06/18/24 17:50 Urine pH 5.0 (5-7) 06/18/24 17:50 Ur Specific [place] 1.023 (1.005-1.030) 06/18/24 17:50 Urine Protein Trace (Negative) A 06/18/24 17:50 Urine Glucose (UA) 3+ (Normal) H 06/18/24 17:50 Urine Ketones Trace (Negative) 06/18/24 17:50 Urine Blood Negative (Negative) 06/18/24 17:50 Urine Nitrate Negative (Negative) 06/18/24 17:50 Urine Bilirubin Negative (Negative) 06/18/24 17:50 Urine Urobilinogen 1.0 mg/dL (Negative) 06/18/24 17:50 Ur Leukocyte Esterase Negative (Negative) 06/18/24 17:50 Urine RBC 0-2 /hpf (0-2) 06/18/24 17:50 Urine WBC 0-5 /hpf (0-5) 06/18/24 17:50 Ur Squamous Epith Cells 0-5 /hpf (0-5) 06/18/24 17:50 Amorphous Sediment Not Reportable 06/18/24 17:50 Urine Bacteria None seen /hpf (NONE) 06/18/24 17:50 Hyaline Casts 20.27 /lpf 06/18/24 17:50 Vitals Last Vital Signs Temp 98.2 F 06/21/24 07:28 Pulse 63 06/21/24 07:28 Resp 19 H 06/21/24 07:28 BP 119/58 06/21/24 07:28 Pulse Ox 99 06/21/24 07:28 O2 Del Method Room Air 06/21/24 07:28 O2 Flow Rate 2 06/19/24 15:15 Discharge Plan Discharge Patient Disposition: Home Health Service Condition: Stable Prescriptions: Continued nortriptyline 75 mg capsule 75 mg PO BEDTIME amlodipine 2.5 mg tablet 2.5 mg PO DAILY lisinopril 40 mg tablet 20 mg PO DAILY cholecalciferol (vitamin D3) 25 mcg (1,000 unit) capsule 25 mcg PO DAILY insulin glargine [Lantus U-100 Insulin] 100 unit/mL Solution See Rx Instructions .ROUTE .COMPLEX Rx Instructions: Inject 80 units subcutaneously in the morning and 15 units at bedtime. hydrocodone-acetaminophen 5-325 mg Tablet See Rx Instructions .ROUTE .COMPLEX PRN (Reason: Pain) Rx Instructions: TAKE 1 TABLET BY MOUTH EVERY 4 TO 6 HOURS NEEDED FOR PAIN. MAX 2 TABLETS PER DAY. MUST LAST 30 DAYS. DO NOT EXCEED 4000 MG PER DAY OF ACETAMINOPHEN FROM ALL MEDS. pravastatin 80 mg Tablet 80 mg PO QPM tamsulosin 0.4 mg Capsule 0.4 mg PO QPM metoprolol tartrate 25 mg Tablet 12.5 mg PO BID omega-3 fatty acids 500 mg Capsule 1,000 mg PO BID clobetasol 0.05 % Solution 1 applic TOPICAL BID Jardiance 25 mg Tablet 25 mg PO DAILY sitagliptin 50 mg Tablet 50 mg PO DAILY ketoconazole 2 % Shampoo See Rx Instructions .ROUTE .COMPLEX Rx Instructions: APPLY TO SCALP 2 TO 3 TIMES PER WEEK AND ALLOW TO SIT 5 MINUTES BEFORE RINSING. aspirin [Aspir-81] 81 mg Tablet,Delayed Release (Dr/Ec) 81 mg PO DAILY hydrocortisone 2.5 % Ointment See Rx Instructions .ROUTE .COMPLEX Rx Instructions: APPLY SPARINGLY TO AFFECTED AREA(S) ENOUGH TO COVER, TOPICALLY. MAY USE ON EARS. Discontinued glipizide 10 mg Tablet 10 mg PO TID metformin 500 mg Tablet 250 mg PO BID sildenafil 100 mg Tablet See Rx Instructions .ROUTE .COMPLEX Rx Instructions: Take 50 mg orally 1 hour prior to sexxual activity for ed. Limit 6 doses per 30 days. dexamethasone 1.5 mg tablet 3 mg PO Q6H Qty: 20 0RF Discharge Orders: Discharge Order (Routine); Ordered 06/21/24 Ordered By: Brittney Toledo Referrals: [facility] [Outside] Ml Herrmann MD [Primary Care Provider] - (We have notified your physician's clinic of the need for a follow-up appointment to be scheduled. If you have not heard from them within the next 2 business days, please call them directly. ) Patient Instructions: Acute Wound Care (DC), GI Post Discharge Instructions w/ Anesthesia, Opioid Safety, Pain Management Discharge Attestations Time Spent in Discharge Care*: greater than 30 min Quality Metrics Clinical Quality Measures [ No reported AMI, CVA or VTE this stay] Coding Level of Care Code Acute Code for Chg Fwd Diagnoses S/P percutaneous endoscopic gastrostomy (PEG) tube placement Z93.1 Dysphagia R13.10 Esophagitis K20.90 Acute kidney failure N17.9 Acute renal failure type: unspecified Acute renal impairment N28.9 Stage 3a chronic kidney disease N18.31 Chronic kidney disease stage: stage 3 (moderate) Chronic kidney disease stage 3 subtype: stage 3a (GFR 45-59) Metastatic carcinoma C79.9 Lung cancer metastatic to brain C34.90; C79.31
[2024-06-21 09:31] VITALS: PULSE 73; RESP 16; O2SAT 93
[2024-06-21 11:41] LABS: Glucose Point of Care 152 mg/dL (70-110)
[2024-06-21 11:45] VITALS: PULSE 73; RESP 16; O2SAT 93
[2024-06-21 11:49] VITALS: BP 112/60; PULSE 67; RESP 18; TEMP 36.7; O2SAT 95
--- NOTE | 2024-06-21 11:54 | PC.SOCIAL ---
IMM Update pg 2 of IMM Updated and reviewed w/ patient. Copy provided and copy dated, initialed and placed in chart.
== END 2024-06-21 11:45 | disposition home health service (06) | DRG 683 ==
LOC: ER 16:38 → MEDSURG 17:27
PROVIDERS: Surgery; Admitting Provider Internal Medicine; Emergency Provider Physician Assistant; PCP Family Medicine; Visit Provider Internal Medicine
PROC: 0DJ08ZZ Inspection of Upper Intestinal Tract, Via Natural or Artificial Opening Endoscopic (ICD-10-PCS; CPT 43235; principal; 2024-06-19 12:45)
PROC: 0DH63UZ Insertion of Feeding Device into Stomach, Percutaneous Approach (ICD-10-PCS; CPT 43246; 2024-06-19 12:45)
DX: N17.9 Acute kidney failure, unspecified (principal); C64.9 Malignant neoplasm of unspecified kidney, except renal pelvis; E87.20 Acidosis, unspecified; C78.00 Secondary malignant neoplasm of unspecified lung; C79.31 Secondary malignant neoplasm of brain; G81.94 Hemiplegia, unspecified affecting left nondominant side; E46 Unspecified protein-calorie malnutrition; K20.90 Esophagitis, unspecified without bleeding; E86.0 Dehydration; E86.1 Hypovolemia; E11.22 Type 2 diabetes mellitus with diabetic chronic kidney disease; I12.9 Hypertensive chronic kidney disease with stage 1 through stage 4 chronic kidney disease, or unspecified chronic kidney disease; N18.31 Chronic kidney disease, stage 3a; N40.0 Benign prostatic hyperplasia without lower urinary tract symptoms; G35 Multiple sclerosis; I25.10 Atherosclerotic heart disease of native coronary artery without angina pectoris; E78.5 Hyperlipidemia, unspecified; R13.10 Dysphagia, unspecified; K22.2 Esophageal obstruction; K29.70 Gastritis, unspecified, without bleeding; Z68.22 Body mass index [BMI] 22.0-22.9, adult; Z79.84 Long term (current) use of oral hypoglycemic drugs; Z79.4 Long term (current) use of insulin; Z79.82 Long term (current) use of aspirin; Z85.828 Personal history of other malignant neoplasm of skin; Z95.5 Presence of coronary angioplasty implant and graft; Z90.5 Acquired absence of kidney
CPT/HCPCS: 36415; 36416; 43239; 43246; 43249; 51702; 71045; 80048; 80053; 81003; 81015; 82962; 83036; 83605; 83735; 84100; 85025; 87040; 88305; 88342; 93005; 96365; 96372; 99285; J1170; J1815; J2470; J2543; J2704; J7030; J7070; J7121

== ENCOUNTER → 2024-06-21 11:54 | Outpatient (BNVA) | payer OTHER, MEDICARE, SELFPAY | PROVIDERS: PCP Family Medicine; Visit Provider Internal Medicine Medical Oncology | DX: Z87.891 Personal history of nicotine dependence; C78.02 Secondary malignant neoplasm of left lung; Z85.528 Personal history of other malignant neoplasm of kidney; C79.31 Secondary malignant neoplasm of brain; C78.7 Secondary malignant neoplasm of liver and intrahepatic bile duct | CPT/HCPCS: 99205 ==

== ENCOUNTER 2024-07-22 10:30 | Oncology outpatient (recurring) (ONCR) | payer OTHER, SELFPAY ==
--- NOTE | 2024-07-03 11:32 | N.ONRAD NP_ITS ---
Radiation Oncology New Patient Visit Patient: Brian Hinkle MR#: [id number] : 1945> Age: 78> Sex: Male> Dictated by: Dr. Anika Mar Date of Service: 07/03/2024 Referring Physician(s) : Bharat Cox M.D. 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 Chief Complaint / History of Present Illness: Patient is a 78-year-old gentleman with a history of renal cell carcinoma from 10 years ago when he had the right kidney removed. He presented acutely with left-sided weakness, inability to walk, and falling. This has been occurring for 1 to 2 weeks. He was hospitalized and workup ensued. He was found to have what appeared to be multiple brain metastasis on both sides. He has significant edema in minimal shift. He was started on steroids which has markedly improved his symptoms. He also was found to have a left lower lung mass that was sick centimeters in size. His esophagus was markedly dilated as well. He was noted to have lesions in the liver. He is here today to discuss palliative radiation for his brain metastasis. He is currently on Decadron at 2 mg twice a day. Current Medications: amlodipine 2.5 mg PO DAILY, aspirin 81 mg PO DAILY, cholecalciferol (vitamin D3) 25 mcg PO DAILY, clobetasol 0.05% 1 applic topical BID, empagliflozin (Jardiance) 25 mg PO DAILY, hydrocodone-acetaminophen 5-325 mg TAKE 1 TABLET BY MOUTH EVERY 4 TO 6 HOURS NEEDED FOR PAIN. MAX 2 TABLETS PER DAY. MUST LAST 30 DAYS. DO NOT EXCEED 4000 MG PER DAY OF ACETAMINOPHEN FROM ALL MEDS., hydrocortisone 2.5% APPLY SPARINGLY TO AFFECTED AREA(S) ENOUGH TO COVER, TOPICALLY. MAY USE ON EARS., insulin glargine (Lantus U-100 Insulin) Inject 80 units subcutaneously in the morning and 15 units at bedtime., ketoconazole 2% APPLY TO SCALP 2 TO 3 TIMES PER WEEK AND ALLOW TO SIT 5 MINUTES BEFORE RINSING. , lisinopril 20 mg PO DAILY, magnesium 200 mg PO BID, metoprolol tartrate 12.5 mg PO BID, nortriptyline 75 mg PO BEDTIME, omega-3 fatty acids 1,000 mg PO BID, pravastatin 80 mg PO QPM, sitagliptin 50 mg PO DAILY, sod phos di, mono-K phos mono 250 mg (Phosphorous) 1 tab PO BID, sodium bicarbonate 325 mg PO BID, tamsulosin 0.4 mg PO QPM Allergies: Iodine and Iodide Containing Produc Allergy (Verified 06/21/24 11:56) Unresponsive Medical History: No history of collagen vascular disease. No previous radiation therapy. Male circumcision History of nonmelanoma skin cancer Chronic kidney disease BPH (benign prostatic hyperplasia) Diabetes mellitus Multiple sclerosis CAD (coronary artery disease) HLD (hyperlipidemia) HTN (hypertension) Surgical History: Status post insertion of percutaneous endoscopic gastrostomy (PEG) tube (06/19/24), History of right nephrectomy, History of colonoscopy, History of surgery on wrist, History of coronary artery stent placement Family History: Mother , at age 81 Acute leukemia Father , at age 76 Tooth abscess Brother , in his 70 Cancer Colon Cancer Brother , 2nd brother in 70s Cancer colon cancer Brother Bladder cancer Social History: Smoking and tobacco/nicotine status: former use of tobacco/nicotine (smoked for 20 years, about 1 PPD) Alcohol intake: never Household members: spouse Marital status: Current occupational status: retired Current Complaints / Review of Systems: . Vital Signs: Performed on 07/03/2024 10:48 AM BMI - 23.274 kg/m2 (high), Height - 69 in, Weight - 157.6 lbs, Temperature - 96.9 f, Pulse - 73 /min, Respiration - 17 /min, O2 Sat - 97 %, Pain - 0, Fatigue - 0 and BP - 96/ 52 mm(hg)(/low). Physical Exam: General: Patient is alert and orient x 3. He is companied by his he is sitting comfortably in his wheelchair HEENT: Normocephalic atraumatic. Pupils are equal, sclera clear, extraocular muscles intact Pulmonary: Respiratory rate is regular nonlabored Cardiovascular: Regular rate and rhythm Abdomen: Patient's abdomen is quite flat. He has apparently lost 50 pounds Extremities: Without clubbing cyanosis or edema Neurological: He currently is able to get around on a walker. He is able to move and grasp with his left hand. Psych: Affect appropriate for current situation Performance Status: 70 Pathology: Lab: Imaging: See HPI Impression: Stage IV renal cancer with brain metastasis Plan: I reviewed his findings and his current symptoms. He has had marked improvement on the steroids. I have asked him to continue the Decadron at 2 mg twice a day. Once we have completed the radiation we can give him a taper to get him off the steroids. We talked about the simulation process. We reviewed the daily treatment regiment. We discussed the risks and side effects both acute and long-term. This time he has a good understanding and he is anxious to get started. Will have her return for simulation tomorrow and start his treatments next week. He does have an appointment on Monday to go to [place] about the problems with his esophagus. He currently has a feeding tube which she is using but he is also still continuing to try and eat orally. If we are unable to start his treatments by Monday we will just start them on after his appointment in [place]. Signed by: 07/03/2024 11:29:30 AM <<Signature on File>> Time spent with patient: 35 CPT Code: CPT Code:
--- NOTE | 2024-07-09 10:28 | ONCRAD TMN_ITS ---
Radiation Oncology Weekly Treatment Management Patient: Brian Hinkle MR#: [id number] : 1945> Attending Physician: Dr. Anika Mar Date of Service: 07/09/2024 Fractions: 2 out of 10 Referring Physician(s) : Bharat Cox M.D. Diagnosis: Radiotherapy to date: Course: Whole Brain 2023, Treatment Site: WBRT 2023, Ref. ID: [id number], Energy: 15X, Dose/Fx (cGy): 300, #Fx: 2 / 10, Dose Correction (cGy): 0, Total Dose Delivered (cGy): 600, Start Date: 07/08/2024, Elapsed Days: 1 Reason for visit: The patient is being seen today as part of their regularly scheduled weekly on treatment visits to assess for acute toxicities from radiotherapy. Review of Systems: Patient has noticed no changes. He has had no headaches. He had no questions today. Vital Signs: Performed on 07/09/2024 10:22 AM BMI - 21.708 kg/m2, Height - 69 in, Weight - 147 lbs, Temperature - 97.4 f, Pulse - 76 /min, Respiration - 16 /min, O2 Sat - 96 %, Pain - 0, Fatigue - 0 and BP - 109/ 67 mm(hg). Physical Exam: No changes on exam Imaging: Radiation therapy imaging related to accurate target localization (i.e. KV, MV and CBCT) was reviewed. Appropriate changes, if any, were made to ensure treatment accuracy. Plan: Will continue with his treatments as planned. Will go ahead and decrease his dexamethasone next week. Signed by: Dr. Anika Mar 07/09/2024 10:27:28 AM
--- NOTE | 2024-07-16 10:30 | ONCRAD TMN_ITS ---
Radiation Oncology Weekly Treatment Management Patient: Manan Torres> MR#: [id number] : 1945> Attending Physician: Dr. Anika Mar Date of Service: 07/16/2024 Fractions: 6 out of 10 Referring Physician(s) : Bharat Cox M.D. Diagnosis: Stage IV renal cell cancer with brain metastasis Radiotherapy to date: Course: Whole Brain 2023, Treatment Site: WBRT 2023, Ref. ID: [id number], Energy: 15X, Dose/Fx (cGy): 300, #Fx: 6 / 10, Dose Correction (cGy): 0, Total Dose Delivered (cGy): 1,800, Start Date: 07/08/2024, Elapsed Days: 8 Reason for visit: The patient is being seen today as part of their regularly scheduled weekly on treatment visits to assess for acute toxicities from radiotherapy. Review of Systems: Patient's sugars were a little bit elevated yesterday and he did feel a little weaker. Today he feels fine. His blood pressure was a little low but they said that was intermittently normal for him. Vital Signs: Performed on 07/16/2024 10:23 AM BMI - 22.919 kg/m2 (high), Height - 69 in, Weight - 155.2 lbs, Temperature - 97.1 f, Pulse - 74 /min, Respiration - 18 /min, O2 Sat - 99 %, Pain - 0, Fatigue - 0 and BP - 91/ 57 mm(hg)(/low). Physical Exam: No changes on exam Imaging: Radiation therapy imaging related to accurate target localization (i.e. KV, MV and CBCT) was reviewed. Appropriate changes, if any, were made to ensure treatment accuracy. Plan: I gave him a taper today that would take his steroids down in the next 3 weeks. He will do a half a pill twice a day starting tomorrow for a week. Next Monday he will start a half a pill once a day. This will go for another week. After that if she can cut the pill into a quarter she will and give him that for an additional week. He does have an appointment tomorrow in [place] to undergo evaluation for the esophageal issues. Will continue with his treatments as planned Signed by: Dr. Anika Mar 07/16/2024 10:28:21 AM
--- NOTE | 2024-07-22 13:50 | N.ONRD TS_ITS ---
Radiation Oncology Treatment Summary Patient: Manan>Brian> MR#: [id number] : 1945> Age: 78> Sex: Male Dictated by: Dr. Harsha Lopez Date of Service: 07/22/2024 Referring Physician(s) : Bharat Cox M.D. Diagnosis: Radiotherapy to Date: Course: Whole Brain 2023, Treatment Site: WBRT 2023, Ref. ID: [id number], Energy: 15X, Dose/Fx (cGy): 300, #Fx: 10 / 10, Dose Correction (cGy): 0, Total Dose Delivered (cGy): 3,000, Start Date: 07/08/2024, End Date: 07/22/2024, Elapsed Days: 14 Clinical Summary: The patient tolerated RT well. He presented with left sided weakness and falling. Symptoms improved significantly after beginning dexamethasone. While on treatment he had some elevation of his serum glucose level which was monitored. He was given a tapering schedule of his dexamethasone which reduced steroid use over a three week period. Plan: End of treatment today. Follow up in one month. Signed by: Dr. Harsha Lopez>07/22/2024 1:48:27 PM <<Signature on File>>
== END 2024-07-29 23:59 | disposition home or self-care (01) ==
PROVIDERS: PCP Family Medicine; Visit Provider Radiology Radiation Oncology
DX: Z53.9 Procedure and treatment not carried out, unspecified reason (principal); Z51.0 Encounter for antineoplastic radiation therapy; C79.31 Secondary malignant neoplasm of brain; C64.9 Malignant neoplasm of unspecified kidney, except renal pelvis
CPT/HCPCS: 36415; 77290; 77295; 77300; 77334; 77336; 77387; 77412; 99024; 99205; 99214

== ENCOUNTER 2024-07-28 07:06 | Emergency (ER) | payer OTHER, MEDICARE, SELFPAY ==
[2024-07-28] VITALS (9 sets, daily range): BP systolic 103–131; BP diastolic 54–70; PULSE 67–91; RESP 15–18; TEMP 36.9; O2SAT 90–97; BMI 24.0
[2024-07-28] MEDS: sodium chloride 0.9% 500 ML 999 ML IV (07:16)
[2024-07-28] MEDS: morphine 4 mg/mL SDV 1 mL IVP ×2 (07:26→12:18)
[2024-07-28] MEDS: ondansetron 2 mg/ML SDV 2 mL 4 MG IVP (07:27)
[2024-07-28 07:39] LABS: Basophils % 0.3 %; Eosinophils % 0.2 %; Hematocrit 31.7 % (37-53); Lymphocytes # 1.8 10^3/uL (0.8-4.8); Lymphocytes % 16.2 %; Mean Corpuscular HGB Conc 30.3 g/dL (30-55); Mean Corpuscular Hemoglobin 26.1 pg (27-33); Mean Corpuscular Volume 86.1 fl (82-101); Mean Platelet Volume 9.1 fL (7.4-10.4); Monocytes # 0.9 10^3/uL (0.2-0.9); Monocytes % 8.5 %; Neutrophils % 74.3 %; Nucleated Red Blood Cells % 0 %; Platelet Count 359 10^3/cmm (157-399); Red Blood Count 3.68 10^6/uL (3.85-5.65); Red Cell Distribution Width 17.3 % (12.1-15.1); White Blood Count 10.88 10^3/uL (3.29-11.43)
[2024-07-28 07:58] LABS: Alanine Aminotransferase 8 U/L (0-41); Albumin Level 2.6 g/dL (3.5-5.2); Alkaline Phosphatase 118 U/L (40-130); Anion Gap 12.8 (5-19); Aspartate Amino Transferase 14 U/L (0-40); Blood Urea Nitrogen 24 mg/dL (8-23); Carbon Dioxide 25 mmol/L (22-29); Chloride 99 mmol/L (98-107); Creatinine Clr Calc Pharmacy 79.9938; Globulin 4.1 g/dL (1.3-4.6); Glucose 86 mg/dL (65-115); Osmolality Calculated 279 mOsm/kg (285-295); Potassium 3.8 mmol/L (3.5-5.1); Sodium 133 mmol/L (136-145); Total Bilirubin 0.3 mg/dL (0.15-1.2); Total Protein 6.7 g/dL (6.6-8.7)
[2024-07-28 08:06] LABS: Bilirubin Urine Negative (Negative); Blood Urine Negative (Negative); Glucose Urine UA Negative (Normal); Ketones Urine Negative (Negative); Leukocyte Esterase Urine Negative (Negative); Nitrate Urine Negative (Negative); Protein Urine 1+ (Negative); Specific Gravity, Urine 1.015 (1.005-1.030); Urine Appearance Clear (CLEAR); Urine Color Yellow (Yellow)
[2024-07-28 08:09] LABS: Add Urine Microscopic? YES; Bacteria Urine None Seen /hpf; Hyaline Casts Urine 0-4 /lpf; RBC Urine 0-2 /hpf (0-2); Squamous Epithelial Cell Urine 0-5 /hpf (0-5); WBC Urine 0-5 /hpf (0-5)
[2024-07-28 08:43] LABS: Glucose Point of Care 66 mg/dL (70-110)
[2024-07-28] MEDS: dextrose 5%-sod chloride 0.9% 1,000 ML 125 ML IV (09:06)
[2024-07-28 10:30] LABS: Glucose Point of Care 84 mg/dL (70-110)
[2024-07-28 11:54] LABS: Glucose Point of Care 96 mg/dL (70-110)
[2024-07-28 13:46] LABS: Glucose Point of Care 83 mg/dL (70-110)
--- NOTE | 2024-07-28 15:23 | ED_ITS ---
HPI - Weakness 2 General: Chief complaint: Weakness Stated complaint: weakness Time Seen by Provider: 07/28/24 07:07 History of Present Illness: This patient is a 78-year-old presenting with pain all over. He also is hypoglycemic. He is an insulin-dependent diabetic. He has a history of metastatic cancer. He is currently on palliative radiation treatments for brain tumor. He recently had a procedure on his esophagus due to difficulty swallowing. He also recently had a PEG tube placed and is not able to take food consistently by mouth. He has some pain medication at home which had been adequate until around midnight last night when his pain became more severe. He was transported here today by ambulance. They noted low blood sugars and he was given D10. His says that he got his insulin at 2 AM. She did not know what type of insulin but it appears from his medication list that it is Lantus. He has not had any of his tube feedings yet today. He denies fevers. He has no specific complaints but says he has pain all over. He does have a bedsore on his sacrum which is painful. He is awake and alert. PFS ED 2 PFSH: Medical History (Updated 07/28/24 @ 16:19 by Breanne Hart MD) Renal cell cancer Metastatic Dysphagia Malnourished Starvation ketoacidosis Acute kidney failure Male circumcision History of nonmelanoma skin cancer Chronic kidney disease BPH (benign prostatic hyperplasia) Diabetes mellitus Multiple sclerosis CAD (coronary artery disease) HLD (hyperlipidemia) HTN (hypertension) Surgical History Status post insertion of percutaneous endoscopic gastrostomy (PEG) tube (06/19/24) S/P percutaneous endoscopic gastrostomy (PEG) tube placement History of right nephrectomy History of colonoscopy History of surgery on wrist History of coronary artery stent placement Family History Mother , at age 81 Acute leukemia Father , at age 76 Tooth abscess Brother , in his 70 Cancer Colon Cancer Brother , 2nd brother in 70s Cancer colon cancer Brother Bladder cancer Social History Smoking and tobacco/nicotine status: former use of tobacco/nicotine (smoked for 20 years, about 1 PPD) Alcohol intake: never Household members: spouse Marital status: Current occupational status: retired Physical Exam 2 Const: COMMON NORMALS: no acute distress, patient oriented x3, no limitations and alert GENERAL APPEARANCE: cooperative and comfortable HENMT: HEAD & SCALP: normal to inspection FACE & SINUS: normal facial exam Eye: GENERAL EYE: appearance normal, both eyes and all related structures Neck/C-Spine: COMMON NORMALS: supple, no meningeal signs and no JVD Chest: COMMONS NORMALS: normal inspection of the chest Resp: COMMON NORMALS: normal respiratory effort, No use of accessory muscles and clear to auscultation bilaterally AUSCULTATION: clear to auscultation bilaterally Cardio: COMMON NORMALS: no JVD, regular rate, regular rhythm and No murmurs present (Cardio) RATE: regular rate RHYTHM: regular rhythm GI: COMMON NORMALS: Normal to inspection, nondistended, normoactive bowel sounds present, Soft to palpation and non-tender INSPECTION: Yes normal to inspection AUSCULTATION: Yes normoactive bowel sounds PALPATION: Yes Soft to palpation OTHER: He is thin. There is a PEG tube in place. Back/Pelvis: COMMON NORMALS: thoracic and lumbar spine normal to inspection Extremity: COMMON NORMALS: normal to inspection Neuro: COMMON NORMALS: patient oriented x3, moves all extremities, no focal motor deficits and no sensory deficits noted SENSORIUM/ORIENTATION: Yes alert MENINGEAL SIGNS: Yes no meningeal signs Psych: COMMON NORMALS: mental status grossly normal, cooperative and normal affect Skin: COMMON NORMALS: no rashes or lesions noted and turgor normal N ARRATIVE SKIN EXAM: Stage II sacral decubitus present. No evidence of local infection. GENERAL SKIN EXAM: no rashes or lesions noted and turgor normal Course 2 Vital Signs: Vital signs: Vital Signs Temperature 98.4 F 07/28/24 07:07 Pulse Rate 91 07/28/24 17:44 Respiratory Rate 15 07/28/24 12:18 Blood Pressure 131/62 07/28/24 17:44 Pulse Oximetry 90 07/28/24 17:44 Oxygen Delivery Me thod Room Air 07/28/24 17:44 Oxygen Flow Rate 2 07/28/24 12:21 MDM - Weakness Medical Decision Making This patient has metastatic cancer. He is getting palliative treatments. He is on tube feedings. He is diabetic taking Lantus and has been consistently hypoglycemic in the ER. He was put on a D5 drip and his blood sugar has been remaining around 80-90. We have ordered tube feedings for him. His blood work is fairly good considering his health problems. He was given morphine for pain control. I am hoping that if we can keep his blood sugar up that he might be able to go home with better pain control. Blood sugar was able to stay up with the tube feedings. Family and patient were comfortable with going home. He has good outpatient follow-up. We did have a discussion about hospice care. The patient did not really participate in the discussion but his clearly is not ready to consider that option. Lab Data 07/28/24 07:35 07/28/24 07:35 Laboratory Results WBC 10.88 10^3/uL (3.29-11.43) 07/28/24 07:35 RBC 3.68 10^6/uL (3.85-5.65) L 07/28/24 07:35 Hgb 9.60 g/dL (11.27-16.99) L 07/28/24 07:35 Hct 31.7 % (37-53) L 07/28/24 07:35 MCV 86.1 fl (82-101) 07/28/24 07:35 MCH 26.1 pg (27-33) L 07/28/24 07:35 MCHC 30.3 g/dL (30-55) 07/28/24 07:35 RDW 17.3 % (12.1-15.1) H 07/28/24 07:35 Plt Count 359 10^3/cmm (157-399) 07/28/24 07:35 MPV 9.1 fL (7.4-10.4) 07/28/24 07:35 Neut % (Auto) 74.3 % 07/28/24 07:35 Lymph % (Auto) 16.2 % 07/28/24 07:35 [place] % (Auto) 8.5 % 07/28/24 07:35 Eos % (Auto) 0.2 % 07/28/24 07:35 Baso % (Auto) 0.3 % 07/28/24 07:35 Neut # (Auto) 8.10 10^3/uL (1.8-7.7) H 07/28/24 07:35 Lymph # (Auto) 1.8 10^3/uL (0.8-4.8) 07/28/24 07:35 [place] # (Auto) 0.9 10^3/uL (0.2-0.9) 07/28/24 07:35 Eos # (Auto) 0.0 10^3/uL (0.0-0.8) 07/28/24 07:35 Baso # (Auto) 0.0 10^3/uL (0.0-0.1) 07/28/24 07:35 Nucleated RBC % (auto) 0 % 07/28/24 07:35 Nucleated RBCs # 0.0 /100WBC 07/28/24 07:35 Sodium 133 mmol/L (136-145) L 07/28/24 07:35 Potassium 3.8 mmol/L (3.5-5.1) 07/28/24 07:35 Chloride 99 mmol/L (98-107) 07/28/24 07:35 Carbon Dioxide 25 mmol/L (22-29) 07/28/24 07:35 Anion Gap 12.8 (5-19) 07/28/24 07:35 BUN 24 mg/dL (8-23) H 07/28/24 07:35 Creatinine 0.7 mg/dL (0.7-1.2) 07/28/24 07:35 GFR Calculation Not Reportable 07/28/24 07:35 Glucose 86 mg/dL (65-115) 07/28/24 07:35 POC Glucose 118 mg/dL (70-110) H 07/28/24 15:42 Calculated Osmolality 279 mOsm/kg (285-295) L 07/28/24 07:35 Calcium 9.0 mg/dL (8.5-10.5) 07/28/24 07:35 Magnesium 2.0 mg/dL (1.7-2.3) 07/28/24 07:35 Total Bilirubin 0.3 mg/dL (0.15-1.2) 07/28/24 07:35 AST 14 U/L (0-40) 07/28/24 07:35 ALT 8 U/L (0-41) 07/28/24 07:35 Alkaline Phosphatase 118 U/L (40-130) 07/28/24 07:35 Total Protein 6.7 g/dL (6.6-8.7) 07/28/24 07:35 Albumin 2.6 g/dL (3.5-5.2) L 07/28/24 07:35 Globulin 4.1 g/dL (1.3-4.6) 07/28/24 07:35 Urine Color Yellow (Yellow) 07/28/24 08:01 Urine Appearance Clear (CLEAR) 07/28/24 08:01 Urine pH 8.0 (5-7) A 07/28/24 08:01 Ur Specific [place] 1.015 (1.005-1.030) 07/28/24 08:01 Urine Protein 1+ (Negative) A 07/28/24 08:01 Urine Glucose (UA) Negative (Normal) 07/28/24 08:01 Urine Ketones Negative (Negative) 07/28/24 08:01 Urine Blood Negative (Negative) 07/28/24 08:01 Urine Nitrate Negative (Negative) 07/28/24 08:01 Urine Bilirubin Negative (Negative) 07/28/24 08:01 Urine Urobilinogen 1.0 mg/dL (Negative) 07/28/24 08:01 Ur Leukocyte Esterase Negative (Negative) 07/28/24 08:01 Urine RBC 0-2 /hpf (0-2) 07/28/24 08:01 Urine WBC 0-5 /hpf (0-5) 07/28/24 08:01 Ur Squamous Epith Cells 0-5 /hpf (0-5) 07/28/24 08:01 Amorphous Sediment Not Reportable 07/28/24 08:01 Urine Bacteria None seen /hpf (NONE) 07/28/24 08:01 Hyaline Casts 0-4 /lpf H 07/28/24 08:01 No radiology studies performed this visit Discharge Plan Discharge Patient Disposition: Home Clinical Impression: Metastasis to brain, Hypoglycemia, Anemia, Dehydration Condition: Stable Prescriptions: New morphine 10 mg/5 mL solution 10 mg feeding tube Q6H PRN (Reason: pain) Qty: 150 0RF No Action dexamethasone 1 mg tablet PO nortriptyline 75 mg capsule 75 mg PO BEDTIME amlodipine 2.5 mg tablet 2.5 mg PO DAILY lisinopril 40 mg tablet 20 mg PO DAILY cholecalciferol (vitamin D3) 25 mcg (1,000 unit) capsule 25 mcg PO DAILY insulin glargine [Lantus U-100 Insulin] 100 unit/mL Solution See Rx Instructions .ROUTE .COMPLEX Rx Instructions: Inject 80 units subcutaneously in the morning and 15 units at bedtime. hydrocodone-acetaminophen 5-325 mg Tablet See Rx Instructions .ROUTE .COMPLEX PRN (Reason: Pain) Rx Instructions: TAKE 1 TABLET BY MOUTH EVERY 4 TO 6 HOURS NEEDED FOR PAIN. MAX 2 TABLETS PER DAY. MUST LAST 30 DAYS. DO NOT EXCEED 4000 MG PER DAY OF ACETAMINOPHEN FROM ALL MEDS. pravastatin 80 mg Tablet 80 mg PO QPM tamsulosin 0.4 mg Capsule 0.4 mg PO QPM metoprolol tartrate 25 mg Tablet 12.5 mg PO BID omega-3 fatty acids 500 mg Capsule 1,000 mg PO BID clobetasol 0.05 % Solution 1 applic TOPICAL BID Jardiance 25 mg Tablet 25 mg PO DAILY sitagliptin 50 mg Tablet 50 mg PO DAILY Phosphorous 250 mg tablet 1 tab PO BID Qty: 10 0RF magnesium 200 mg tablet 200 mg PO BID Qty: 10 0RF sodium bicarbonate 325 mg tablet 325 mg PO BID Qty: 10 0RF ketoconazole 2 % Shampoo See Rx Instructions .ROUTE .COMPLEX Rx Instructions: APPLY TO SCALP 2 TO 3 TIMES PER WEEK AND ALLOW TO SIT 5 MINUTES BEFORE RINSING. aspirin 81 mg Tablet,Delayed Release (Dr/Ec) 81 mg PO DAILY hydrocortisone 2.5 % Ointment See Rx Instructions .ROUTE .COMPLEX Rx Instructions: APPLY SPARINGLY TO AFFECTED AREA(S) ENOUGH TO COVER, TOPICALLY. MAY USE ON EARS. Discharge Orders: Discharge ED (Routine); Ordered 07/28/24 Ordered By: Breanne Hart Referrals: Ml Herrmann MD [Primary Care Provider] - Discharge Diet: As Directed Discharge Activity: Increase activity as tolerated Patient Instructions: Opioid Safety, Pain Management Coding Level of Care Code ED Landscape Supervisor for Grace Choud Related Data Home Medications Medication Instructions Recorded Confirmed hydrocodone 5 mg-acetaminophen 325 See Rx Instructions .Route 11/20/21 07/18/24 mg tablet .COMPLEX PRN Pain insulin glargine 100 unit/mL See Rx Instructions .Route .COMPLEX 11/20/21 07/18/24 subcutaneous solution (Lantus U-100 Insulin) metoprolol tartrate 25 mg tablet 12.5 mg PO BID 11/20/21 07/18/24 omega-3 fatty acids 500 mg capsule 1,000 mg PO BID 11/20/21 07/18/24 pravastatin 80 mg tablet 80 mg PO QPM 11/20/21 07/18/24 tamsulosin 0.4 mg capsule 0.4 mg PO QPM 11/20/21 07/18/24 amlodipine 2.5 mg tablet 2.5 mg PO DAILY 05/20/22 07/18/24 cholecalciferol (vitamin D3) 25 25 mcg PO DAILY 05/20/22 07/18/24 mcg (1,000 unit) capsule lisinopril 40 mg tablet 20 mg PO DAILY 05/20/22 07/18/24 nortriptyline 75 mg capsule 75 mg PO BEDTIME 05/20/22 07/18/24 aspirin 81 mg tablet,delayed 81 mg PO DAILY 08/03/23 07/18/24 release hydrocortisone 2.5 % topical See Rx Instructions .Route .COMPLEX 08/03/23 07/18/24 ointment ketoconazole 2 % shampoo See Rx Instructions .Route .COMPLEX 08/03/23 07/18/24 clobetasol 0.05 % scalp solution 1 applic topical BID 05/28/24 07/18/24 empagliflozin 25 mg tablet 25 mg PO DAILY 05/28/24 07/18/24 (Jardiance) sitagliptin 50 mg tablet 50 mg PO DAILY 05/28/24 07/18/24 dexamethasone 1 mg tablet mg PO 07/18/24 07/18/24 Previous Rx's Medication Instructions Recorded magnesium 200 mg tablet 200 mg PO BID #10 tabs 06/21/24 sodium bicarbonate 325 mg tablet 325 mg PO BID #10 tabs 06/21/24 sodium di- and 1 tab PO BID #10 tabs 06/21/24 monophosphate-potassium phos monobasic 250 mg tablet (Phosphorous) morphine 10 mg/5 mL oral solution 10 mg (5 mL) feeding tube Q6H PRN 07/28/24 pain #150 mL Allergies Allergy/AdvReac Type Severity Reaction Status Date / Time Iodine and Iodide Containing Allergy Unresponsiv Verified 07/18/24 08:48 Produc e
[2024-07-28 15:45] LABS: Glucose Point of Care 118 mg/dL (70-110)
--- NOTE | 2024-07-29 08:38 | PC.NUTR ---
Nutrition consult for PEG TF received. Recommendations per previous RD consult: When medically appropriate, start continuous tube feeds, use Glucerna 1.[address] recs below: -Initiate at 15ml/hr -Advance by 10ml q8 as tolerated -Goal of 65 ml/hr x24hrs -FWF: 120ml q6 If bolus feeds are appropriate at discharge, use Glucerna 1.[address] recs below: -(2cans)480ml @B, (2cans)480ml @L, (2cans)480ml @D -FWF: 60ml before and after bolus feeds
== END 2024-07-28 17:45 | disposition home or self-care (01) ==
PROVIDERS: Emergency Provider Emergency Medicine; PCP Family Medicine
DX: D64.9 Anemia, unspecified (principal); E86.0 Dehydration; E11.649 Type 2 diabetes mellitus with hypoglycemia without coma; Z79.82 Long term (current) use of aspirin; Z79.4 Long term (current) use of insulin; C79.31 Secondary malignant neoplasm of brain; L89.152 Pressure ulcer of sacral region, stage 2; Z85.528 Personal history of other malignant neoplasm of kidney; E11.22 Type 2 diabetes mellitus with diabetic chronic kidney disease; I12.9 Hypertensive chronic kidney disease with stage 1 through stage 4 chronic kidney disease, or unspecified chronic kidney disease; N18.9 Chronic kidney disease, unspecified; G35 Multiple sclerosis; I25.10 Atherosclerotic heart disease of native coronary artery without angina pectoris; E78.5 Hyperlipidemia, unspecified
CPT/HCPCS: 36415; 36416; 80053; 81001; 82962; 83735; 85025; 96361; 96374; 96375; 96376; 99284; J2270; J2405; J7040; J7042

== ENCOUNTER 2024-07-31 11:33 | Emergency (ER) | payer OTHER, MEDICARE, SELFPAY ==
--- NOTE | 2024-07-31 11:32 | ED_ITS ---
HPI - General Adult 2 General: Chief complaint: General Medical Stated complaint: increased pain, cancer Source: patient and EMS Mode of arrival: EMS Limitations: no limitations History of Present Illness: 78-year-old male has a history of cancer he has chronic pain from his cancer states he had taken his pain meds this morning he still having pain all over denies any specific plates he states he just hurts all over. He rates his pain an 8 out of 10 currently denies any fever denies any vomiting denies any diarrhea. Associated symptoms: Reports chest pain; Deny dyspnea, headache(s), nausea, rash or vomiting Related Data Home Medications Medication Instructions Recorded Confirmed hydrocodone 5 mg-acetaminophen 325 See Rx Instructions .Route 11/20/21 07/31/24 mg tablet .COMPLEX PRN Pain insulin glargine 100 unit/mL See Rx Instructions .Route .COMPLEX 11/20/21 07/31/24 subcutaneous solution (Lantus U-100 Insulin) metoprolol tartrate 25 mg tablet 12.5 mg PO BID 11/20/21 07/31/24 pravastatin 80 mg tablet 80 mg PO QPM 11/20/21 07/31/24 tamsulosin 0.4 mg capsule 0.4 mg PO QPM 11/20/21 07/31/24 amlodipine 2.5 mg tablet 2.5 mg PO DAILY 05/20/22 07/31/24 cholecalciferol (vitamin D3) 25 25 mcg PO DAILY 05/20/22 07/31/24 mcg (1,000 unit) capsule lisinopril 40 mg tablet 20 mg PO DAILY 05/20/22 07/31/24 nortriptyline 75 mg capsule 75 mg PO BEDTIME 05/20/22 07/31/24 aspirin 81 mg tablet,delayed 81 mg PO DAILY 08/03/23 07/31/24 release ketoconazole 2 % shampoo See Rx Instructions .Route .COMPLEX 08/03/23 07/31/24 clobetasol 0.05 % scalp solution 1 applic topical BID 05/28/24 07/31/24 empagliflozin 25 mg tablet 25 mg PO DAILY 05/28/24 07/31/24 (Jardiance) sitagliptin 50 mg tablet 50 mg PO DAILY 05/28/24 07/31/24 dexamethasone 1 mg tablet See Rx Instructions .Route .COMPLEX 07/31/24 07/31/24 morphine 20 mg/5 mL (4 mg/mL) oral 10 mg PO Q6H PRN Pain 07/31/24 07/31/24 solution nutrition tx glu 1 ea feeding tube TID 07/31/24 07/31/24 intol,lac-free,soy-fiber 0.08 gram-1.5 kcal/mL liquid (Glucerna 1.5 Raffaele) Previous Rx's Medication Instructions Recorded magnesium 200 mg tablet 200 mg PO BID #10 tabs 06/21/24 Allergies Allergy/AdvReac Type Severity Reaction Status Date / Time Iodine and Iodide Containing Allergy Unresponsiv Verified 07/18/24 08:48 Produc e Review of Systems 2 Const: Denies: fever(s), chills, body aches or change in appetite ENMT: Denies: throat pain or dental pain Card: Reports: chest pain Resp: Denies: dyspnea GI: Denies: abdominal pain, nausea, vomiting or diarrhea Musc: Denies: neck pain or back pain Skin/Breast: Denies: rash Neuro: Denies: headache(s) PFSH ED 2 PFSH: Medical History Renal cell cancer Metastatic Dysphagia Malnourished Starvation ketoacidosis Acute kidney failure Male circumcision History of nonmelanoma skin cancer Chronic kidney disease BPH (benign prostatic hyperplasia) Diabetes mellitus Multiple sclerosis CAD (coronary artery disease) HLD (hyperlipidemia) HTN (hypertension) Surgical History Status post insertion of percutaneous endoscopic gastrostomy (PEG) tube (06/19/24) S/P percutaneous endoscopic gastrostomy (PEG) tube placement History of right nephrectomy History of colonoscopy History of surgery on wrist History of coronary artery stent placement Family History Mother , at age 81 Acute leukemia Father , at age 76 Tooth abscess Brother , in his 70 Cancer Colon Cancer Brother , 2nd brother in 70s Cancer colon cancer Brother Bladder cancer Social History Smoking and tobacco/nicotine status: former use of tobacco/nicotine (smoked for 20 years, about 1 PPD) Alcohol intake: never Household members: spouse Marital status: Current occupational status: retired Physical Exam 2 Const: COMMON NORMALS: no acute distress, patient oriented x3 and healthy appearing HENMT: COMMON NORMALS: normocephalic and atraumatic HEAD & SCALP: n ormocephalic and atraumatic Eye: COMMON NORMALS: Equal, round and reactive pupils present and EOMs intact bilaterally PUPIL: Yes Equal, round and reactive pupils present Neck/C-Spine: COMMON NORMALS: full ROM and supple Chest: COMMONS NORMALS: normal inspection of the chest and normal palpation of entire chest wall Resp: COMMON NORMALS: normal respiratory effort, No retractions, No use of accessory muscles and clear to auscultation bilaterally AUSCULTATION: clear to auscultation bilaterally Cardio: COMMON NORMALS: regular rate, regular rhythm and No murmurs present (Cardio) RATE: regular rate RHYTHM: regular rhythm GI: COMMON NORMALS: Normal to inspection, nondistended, normoactive bowel sounds present, Soft to palpation, non-tender and no masses PALPATION: Yes Soft to palpation Extremity: COMMON NORMALS: normal to inspection and full ROM Neuro: COMMON NORMALS: patient oriented x3, moves all extremities and no focal motor deficits Psych: COMMON NORMALS: mental status grossly normal, Normal thought process present and cooperative THOUGHT PROCESS: Normal thought process present Skin: COMMON NORMALS: no rashes or lesions noted and no wounds GENERAL SKIN EXAM: no rashes or lesions noted Course 2 Vital Signs: Vital signs: Vital Signs Temperature 98.9 F 07/31/24 11:35 Pulse Rate 79 07/31/24 11:35 Respiratory Rate 18 07/31/24 11:45 Blood Pressure 97/55 07/31/24 13:30 Pulse Oximetry 91 07/31/24 13:[address] [facility] - General Adult Medical Decision Making Patient presents with chronic pain from his cancer his blood work here is all normal he feels improved he stable for discharge he is to follow-up with PCP return if worsening. Medical Records I reviewed the patient's medical records. Lab Data I reviewed the patient's lab results. 07/31/24 11:59 07/31/24 11:59 Laboratory Results WBC 8.40 10^3/uL (3.29-11.43) 07/31/24 11:59 RBC 3.68 10^6/uL (3.85-5.65) L 07/31/24 11:59 Hgb 9.70 g/dL (11.27-16.99) L 07/31/24 11:59 Hct 31.2 % (37-53) L 07/31/24 11:59 MCV 84.8 fl (82-101) 07/31/24 11:59 MCH 26.4 pg (27-33) L 07/31/24 11:59 MCHC 31.1 g/dL (30-55) 07/31/24 11:59 RDW 16.9 % (12.1-15.1) H 07/31/24 11:59 Plt Count 403 10^3/cmm (157-399) H 07/31/24 11:59 MPV 9.4 fL (7.4-10.4) 07/31/24 11:59 Neut % (Auto) 77.2 % 07/31/24 11:59 Lymph % (Auto) 12.9 % 07/31/24 11:59 [place] % (Auto) 8.2 % 07/31/24 11:59 Eos % (Auto) 1.2 % 07/31/24 11:59 Baso % (Auto) 0.1 % 07/31/24 11:59 Neut # (Auto) 6.49 10^3/uL (1.8-7.7) 07/31/24 11:59 Lymph # (Auto) 1.1 10^3/uL (0.8-4.8) 07/31/24 11:59 [place] # (Auto) 0.7 10^3/uL (0.2-0.9) 07/31/24 11:59 Eos # (Auto) 0.1 10^3/uL (0.0-0.8) 07/31/24 11:59 Baso # (Auto) 0.0 10^3/uL (0.0-0.1) 07/31/24 11:59 Nucleated RBC % (auto) 0 % 07/31/24 11:59 Nucleated RBCs # 0.0 /100WBC 07/31/24 11:59 Sodium 133 mmol/L (136-145) L 07/31/24 11:59 Potassium 4.5 mmol/L (3.5-5.1) 07/31/24 11:59 Chloride 96 mmol/L (98-107) L 07/31/24 11:59 Carbon Dioxide 27 mmol/L (22-29) 07/31/24 11:59 Anion Gap 14.5 (5-19) 07/31/24 11:59 BUN 23 mg/dL (8-23) 07/31/24 11:59 Creatinine 0.7 mg/dL (0.7-1.2) 07/31/24 11:59 GFR Calculation Not Reportable 07/31/24 11:59 Glucose 193 mg/dL (65-115) H 07/31/24 11:59 Calculated Osmolality 285 mOsm/kg (285-295) 07/31/24 11:59 Calcium 8.7 mg/dL (8.5-10.5) 07/31/24 11:59 Total Bilirubin 0.2 mg/dL (0.15-1.2) 07/31/24 11:59 AST 31 U/L (0-40) 07/31/24 11:59 ALT 15 U/L (0-41) 07/31/24 11:59 Alkaline Phosphatase 157 U/L (40-130) H 07/31/24 11:59 Total Protein 6.5 g/dL (6.6-8.7) L 07/31/24 11:59 Albumin 2.9 g/dL (3.5-5.2) L 07/31/24 11:59 Globulin 3.6 g/dL (1.3-4.6) 07/31/24 11:59 No radiology studies performed this visit Discharge Plan Discharge Patient Disposition: Home Clinical Impression: Cancer of right kidney, Metastasis to brain, Chronic pain Condition: Stable Prescriptions: No Action nortriptyline 75 mg capsule 75 mg PO BEDTIME amlodipine 2.5 mg tablet 2.5 mg PO DAILY lisinopril 40 mg tablet 20 mg PO DAILY cholecalciferol (vitamin D3) 25 mcg (1,000 unit) capsule 25 mcg PO DAILY insulin glargine [Lantus U-100 Insulin] 100 unit/mL Solution See Rx Instructions .ROUTE .COMPLEX Rx Instructions: Inject 80 units subcutaneously in the morning and 15 units at bedtime. hydrocodone-acetaminophen 5-325 mg Tablet See Rx Instructions .ROUTE .COMPLEX PRN (Reason: Pain) Rx Instructions: TAKE 1 TABLET BY MOUTH EVERY 4 TO 6 HOURS NEEDED FOR PAIN. MAX 2 TABLETS PER DAY. MUST LAST 30 DAYS. DO NOT EXCEED 4000 MG PER DAY OF ACETAMINOPHEN FROM ALL MEDS. pravastatin 80 mg Tablet 80 mg PO QPM tamsulosin 0.4 mg Capsule 0.4 mg PO QPM metoprolol tartrate 25 mg Tablet 12.5 mg PO BID clobetasol 0.05 % Solution 1 applic TOPICAL BID Jardiance 25 mg Tablet 25 mg PO DAILY sitagliptin 50 mg Tablet 50 mg PO DAILY magnesium 200 mg tablet 200 mg PO BID Qty: 10 0RF ketoconazole 2 % Shampoo See Rx Instructions .ROUTE .COMPLEX Rx Instructions: APPLY TO SCALP 2 TO 3 TIMES PER WEEK AND ALLOW TO SIT 5 MINUTES BEFORE RINSING. aspirin 81 mg Tablet,Delayed Release (Dr/Ec) 81 mg PO DAILY morphine 20 mg/5 mL (4 mg/mL) solution 10 mg PO Q6H PRN (Reason: Pain) Glucerna 1.5 Raffaele 0.08-1.5 gram-kcal/mL Liquid 1 ea feeding tube TID dexamethasone 1 mg tablet See Rx Instructions .ROUTE .COMPLEX Rx Instructions: Take THREE TABLET BY MOUTH EVERY 6 HOURS for 15 DAYS, THEN take TWO TABLET BY MOUTH EVERY 6 HOURS for 15 DAYS, THEN TAKE ONE TABLET BY MOUTH EVERY 6 HOURS for 15 DAYS, THEN TAKE ONE TABLET BY MOUTH TWICE DAILY for 15 DAYS. Discharge Orders: Discharge ED (Routine); Ordered 07/31/24 Ordered By: Yareli La Referrals: Ml Herrmann MD [Primary Care Provider] - Discharge Diet: Advance as tolerated Discharge Activity: Resume usual activity Patient Instructions: Chronic Pain (ED), Pain Management Coding Level of Care Code ED Net Washer for Grace Frankel
[2024-07-31 11:35] VITALS: BP 98/61; PULSE 79; RESP 16; TEMP 37.2; O2SAT 89; BMI 22.4
[2024-07-31 11:45] VITALS: BP 98/61; RESP 18; O2SAT 89; O2SAT 95
[2024-07-31] MEDS: HYDROmorphone 1 mg/mL INJ 1 mL IVP (11:45)
[2024-07-31] MEDS: ondansetron 2 mg/ML SDV 2 mL 4 MG IVP (11:45)
--- NOTE | 2024-07-31 11:52 | PC.PHAR ---
[facility]
[2024-07-31 12:10] LABS: Basophils % 0.1 %; Eosinophils # 0.1 10^3/uL (0.0-0.8); Eosinophils % 1.2 %; Hematocrit 31.2 % (37-53); Lymphocytes # 1.1 10^3/uL (0.8-4.8); Lymphocytes % 12.9 %; Mean Corpuscular HGB Conc 31.1 g/dL (30-55); Mean Corpuscular Hemoglobin 26.4 pg (27-33); Mean Corpuscular Volume 84.8 fl (82-101); Mean Platelet Volume 9.4 fL (7.4-10.4); Monocytes # 0.7 10^3/uL (0.2-0.9); Monocytes % 8.2 %; Neutrophils # 6.49 10^3/uL (1.8-7.7); Neutrophils % 77.2 %; Nucleated Red Blood Cells % 0 %; Platelet Count 403 10^3/cmm (157-399); Red Blood Count 3.68 10^6/uL (3.85-5.65); Red Cell Distribution Width 16.9 % (12.1-15.1)
[2024-07-31 12:15] VITALS: BP 98/61; O2SAT 94
[2024-07-31 12:26] LABS: Alanine Aminotransferase 15 U/L (0-41); Albumin Level 2.9 g/dL (3.5-5.2); Alkaline Phosphatase 157 U/L (40-130); Anion Gap 14.5 (5-19); Aspartate Amino Transferase 31 U/L (0-40); Blood Urea Nitrogen 23 mg/dL (8-23); Calcium 8.7 mg/dL (8.5-10.5); Carbon Dioxide 27 mmol/L (22-29); Chloride 96 mmol/L (98-107); Globulin 3.6 g/dL (1.3-4.6); Glucose 193 mg/dL (65-115); Osmolality Calculated 285 mOsm/kg (285-295); Potassium 4.5 mmol/L (3.5-5.1); Sodium 133 mmol/L (136-145); Total Bilirubin 0.2 mg/dL (0.15-1.2); Total Protein 6.5 g/dL (6.6-8.7)
[2024-07-31 13:00] VITALS: BP 120/52; O2SAT 93
[2024-07-31 13:30] VITALS: BP 97/55; O2SAT 91
[2024-07-31 14:01] VITALS: BP 115/68; PULSE 80; O2SAT 94
== END 2024-07-31 14:03 | disposition home or self-care (01) ==
PROVIDERS: Emergency Provider Emergency Medicine; PCP Family Medicine
DX: G89.29 Other chronic pain (principal); C64.1 Malignant neoplasm of right kidney, except renal pelvis; C79.31 Secondary malignant neoplasm of brain; Z79.82 Long term (current) use of aspirin; Z79.4 Long term (current) use of insulin; E11.22 Type 2 diabetes mellitus with diabetic chronic kidney disease; I12.9 Hypertensive chronic kidney disease with stage 1 through stage 4 chronic kidney disease, or unspecified chronic kidney disease; N18.9 Chronic kidney disease, unspecified; G35 Multiple sclerosis; E78.5 Hyperlipidemia, unspecified; I25.10 Atherosclerotic heart disease of native coronary artery without angina pectoris; Z87.891 Personal history of nicotine dependence
CPT/HCPCS: 36415; 80053; 85025; 96374; 96375; 99284; J1170; J2405

== ENCOUNTER 2024-08-01 10:12 | Oncology outpatient (recurring) (ONCR) | payer OTHER, MEDICARE, SELFPAY | END 2024-08-08 23:59 | disposition home or self-care (01) | PROVIDERS: PCP Family Medicine; Visit Provider Radiology Radiation Oncology | DX: Z53.9 Procedure and treatment not carried out, unspecified reason (principal); Z51.0 Encounter for antineoplastic radiation therapy; C79.31 Secondary malignant neoplasm of brain; C64.9 Malignant neoplasm of unspecified kidney, except renal pelvis; C64.1 Malignant neoplasm of right kidney, except renal pelvis; C78.02 Secondary malignant neoplasm of left lung; C78.7 Secondary malignant neoplasm of liver and intrahepatic bile duct; Z79.899 Other long term (current) drug therapy; Z85.528 Personal history of other malignant neoplasm of kidney; Z79.52 Long term (current) use of systemic steroids; Z90.5 Acquired absence of kidney; Z93.1 Gastrostomy status; Z87.891 Personal history of nicotine dependence | CPT/HCPCS: 99214 ==